=== PATIENT | female | born 1930 | race Caucasian/White ===

== ENCOUNTER 2017-09-01 14:34 | Emergency (ER) | payer MEDICARE, OTHER ==
[2017-09-01] MEDS ORDERED: NS 0.9% 1000 ML* 500 ML IV ONE (14:53)
--- NOTE | 2017-09-01 15:15 | RAD ---
INDICATION: Short of breath COMPARISON: Chest x-ray June 23, 2016 TECHNIQUE: An AP portable view obtained at 1504 hours is submitted. FINDINGS: Bones/Soft Tissues: There are no acute bony findings. There breast implants which demonstrate capsular calcifications Cardiomediastinal: The heart is normal in size. There is postsurgical change in the right hemothorax with surgical clips and sutures. The contours are unchanged. Lungs: Hyperinflation. No acute infiltrates. Pleura: Chronic blunting right costophrenic angle. Left costophrenic angle clear. Other: None IMPRESSION: CHRONIC LUNG FINDINGS WITH POSTOPERATIVE CHANGES. NO ACUTE CHANGE
[2017-09-01 16:21] LABS: Hematocrit 41 % (35-47); Hemoglobin 13.6 g/dl (12.0-16.0); Mean Corpuscular HGB Conc 33 g/dl (31-36); Mean Corpuscular Hemoglobin 31 pg (27-31); Mean Corpuscular Volume 94 fL (80-97); Mean Platelet Volume 10 um3 (7.4-10.4); Platelet Count 212 10^3/ul (150-450); Red Blood Count 4.41 10^6/ul (4.0-5.4); Red Cell Distribution Width 15 % (10.5-15); White Blood Count 8.7 10^3/ul (3.5-10.8)
[2017-09-01 16:27] LABS: ABS Basophils 0 10^3/ul (0-0.2); ABS Eosinophils 0 10^3/ul (0-0.6); ABS Lymphocytes 1.3 10^3/ul (1.0-4.8); ABS Monocytes 0.7 10^3/ul (0-0.8); ABS Neutrophils 6.5 10^3/ul (1.5-7.7); ABS Nucleated RBC 0 10^3/ul; Eosinophil % 0.5 % (0-6); Lymphocyte % 15.1 % (25-47); Nucleated Red Blood Cells % 0
[2017-09-01 16:35] LABS: EGFR Non-African American 81.1 (>60)
[2017-09-01] MEDS ORDERED: methylPREDNISolone 125 MG* 2 ML VIAL IM ONE (17:03)
[2017-09-01] MEDS ORDERED: Albuterol/Ipratropium NEB.SOL* Albuterol 2.5 MG/Ipratropium 0.5 MG 3 ML INH SCH (17:10)
[2017-09-01 18:01] LABS: Urine Appearance Clear; Urine Blood Negative (Negative); Urine Color Yellow; Urine Ketones Trace (Negative); Urine Protein Negative (Negative); Urine Specific Gravity 1.012 (1.010-1.030); Urine Urobilinogen Negative (Negative)
[2017-09-01 18:49] VITALS: BP 124/65
--- NOTE | 2017-09-02 11:56 | ED ---
Ulysses Demarco Thomas, scribed for Otf Bunch MD on 09/01/17 at 1502 . Shortness of Breath - HPI Summary HPI Summary: The patient is an 86 year old female complaining of shortness of breath and a productive cough. She additionally complains of a sore throat and runny nose. Past medical history includes COPD. She is on 2.5 L of oxygen at home. - History of Current Complaint Chief Complaint: EDShortnessOfBreath Time Seen by Provider: 09/01/17 14:47 Hx Obtained From: Patient Onset/Duration: Still Present Timing: Constant Current Severity: Mild Dyspnea At: Rest Aggrevating Factors: Nothing Alleviating Factors: Nothing Associated Signs & Symptoms: Cough (Productive), Nasal Congestion - Allergy/Home Medications Allergies/Adverse Reactions: Allergies Allergy/AdvReac Type Severity Reaction Status Date / Time MS Codeine [Codeine] Allergy Unknown Verified 04/24/16 01:38 Reaction Details MS Hydralazine [Hydralazine] Allergy Difficulty Verified 04/25/16 22:02 Breathing MS Sulfa Antibiotics Allergy Unknown Verified 04/24/16 01:38 [Sulfa Antibiotics] Reaction Details Home Medications: Home Medications Albuterol HFA INHALER* [Ventolin HFA Inhaler*] 2 puff INH Q4H PRN 09/01/17 [ History Confirmed 09/01/17] Albuterol Sulfate 1.25 mg INH TID 09/01/17 [History Confirmed 09/01/17] Magnesium Oxide TAB* [MagOx 400 TAB*] 400 mg PO DAILY 09/01/17 [History Confirmed 09/01/17] Metoprolol Succinate XL TAB* [Toprol XL TAB*] 25 mg PO DAILY 09/01/17 [History Confirmed 09/01/17] amLODIPine TAB* [Norvasc 5 mg TAB*] 2.5 mg PO DAILY 09/01/17 [History Confirmed 09/01/17] PMH/Surg Hx/FS Hx/Imm Hx Cardiovascular History: Reports: Hx Hypertension - untreated Respiratory History: Reports: Hx Chronic Obstructive Pulmonary Disease (COPD), Other Respiratory Problems/Disorders - HX OF LUNG CA 1988 GI History: Reports: Other GI Disorders - colon CA Musculoskeletal History: Reports: Hx Arthritis Sensory History: Reports: Hx Contacts or Glasses Opthamlomology History: Reports: Hx Contacts or Glasses Psychiatric History: Reports: Hx Anxiety - Cancer History Cancer Type, 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, Lung, melanoma, basil carcoma - Surgical History Surgery Procedure, Year, and Place: upper L lung lobectomy, colectomy, breast implants, breathing tube placement and removal Infectious Disease History: No Infectious Disease History: Denies: Traveled Outside the [place] in Last 30 Days - Family History Known Family History: Positive: Other - GERD - Social History Alcohol Use: Weekly Hx Substance Use: No Substance Use Type: Reports: None Hx Tobacco Use: Yes Smoking Status (MU): Former Smoker Length of Time of Smoking/Using Tobacco: 25+ years Review of Systems Positive: Sore Throat, Nasal Discharge Positive: Shortness Of Breath, Cough All Other Systems Reviewed And Are Negative: Yes Physical Exam - Summary Physical Exam Summary: VITAL SIGNS: Reviewed. GENERAL: Patient is an elderly, cachectic-looking female who is lying comfortable in the stretcher. Patient is not in any acute respiratory distress. HEAD AND FACE: No signs of trauma. No ecchymosis, hematomas or skull depressions. No sinus tenderness. EYES: PERRLA, EOMI x 2, No injected conjunctiva, no nystagmus. EARS: Hearing grossly intact. Ear canals and tympanic membranes are within normal limits. MOUTH: Oropharynx within normal limits. NECK: Supple, trachea is midline, no adenopathy, no JVD, no carotid bruit, no c- spine tenderness, neck with full ROM. CHEST: Symmetric, no tenderness at palpation LUNGS: Bilateral wheezing. CVS: Regular rate and rhythm, S1 and S2 present, no murmurs or gallops appreciated. ABDOMEN: Soft, non-tender. No signs of distention. No rebound no guarding, and no masses palpated. Bowel sounds are normal. EXTREMITIES: FROM in all major joints, no edema, no cyanosis or clubbing. NEURO: Alert and oriented x 3. No acute neurological deficits. Speech is normal and follows commands. SKIN: Dry and warm Triage Information Reviewed: Yes Vital Signs On Initial Exam: Initial Vitals Temp Pulse Resp BP Pulse Ox 99.8 F 80 16 156/89 94 09/01/17 14:45 09/01/17 14:45 09/01/17 14:45 09/01/17 14:45 09/01/17 14:45 Vital Signs Reviewed: Yes Diagnostics - Vital Signs Vital Signs Temp Pulse Resp BP Pulse Ox 09/01/17 14:45 99.8 F 80 16 156/89 94 - Laboratory Result Diagrams: 09/01/17 15:45 09/01/17 15:45 Lab Statement: Any lab studies that have been ordered have been reviewed, and results considered in the medical decision making process. - Radiology CXR Xray Interpretation: No Acute Changes - CHRONIC LUNG FINDINGS WITH POSTOPERATIVE CHANGES. NO ACUTE CHANGE. Dr. Bunch has reviewed this report. Radiology Interpretation Completed By: Radiologist - EKG 15:05 Cardiac Rate: NL EKG Rhythm: Sinus Rhythm - at 75 BPM EKG Interpretation: No ST elevations. Course/Dx - Course Assessment/Plan: The patient is an 86 year old female complaining of shortness of breath and a productive cough. She additionally complains of a sore throat and runny nose. Past medical history includes COPD. She is on 2.5 L of oxygen at home. Tests results are without significant abnormalities. Influenza A and B are negative. CXR shows CHRONIC LUNG FINDINGS WITH POSTOPERATIVE CHANGES. NO ACUTE CHANGE. In the ED course, the patient was given Duo-Neb. Her symptoms have improved. Therefore, the patient will be discharged home with her granddaughter. - Diagnoses Provider Diagnoses: COPD exacerbation Discharge - Discharge Plan Condition: Stable Disposition: HOME Patient Education Materials: COPD (Chronic Obstructive Pulmonary Disease) (ED) Referrals: Elmo Mendez MD [Primary Care Provider] - 3 Days Additional Instructions: Follow up with your primary care physician in three days. Return to the emergency department for any new or worsening symptoms. The documentation as recorded by the Ulysses luciano Thomas accurately reflects the service I personally performed and the decisions made by Julio C iverson Walter, MD.
== END 2017-09-01 18:48 | disposition home or self-care (01) ==
LOC: ED 14:34
DX: J44.1 Chronic obstructive pulmonary disease with (acute) exacerbation (principal); R05 Cough; J02.9 Acute pharyngitis, unspecified; R09.89 Other specified symptoms and signs involving the circulatory and respiratory systems; I10 Essential (primary) hypertension; Z85.118 Personal history of other malignant neoplasm of bronchus and lung; Z85.038 Personal history of other malignant neoplasm of large intestine; Z85.828 Personal history of other malignant neoplasm of skin; F41.9 Anxiety disorder, unspecified; Z88.5 Allergy status to narcotic agent; Z88.2 Allergy status to sulfonamides; Z87.891 Personal history of nicotine dependence
CPT/HCPCS: 36415; 71045; 80053; 81003; 82550; 82553; 83605; 83880; 84484; 85025; 86140; 87040; 87502; 93005; 94640; 96372; 99283; A9270-GY

== ENCOUNTER 2017-09-11 17:46 | Inpatient (IN) | payer MEDICARE, OTHER ==
[2017-09-11] MEDS ORDERED: Albuterol 2.5 MG/3 ML NEB.SOL* (0.083%) INH PRN ×2 (18:16→22:47)
[2017-09-11] MEDS ORDERED: NS 0.9% 1000 ML*IV.FLUID IV ONE (18:16)
[2017-09-11] MEDS ORDERED: Ondansetron INJ* 2 MG/ML VIAL IV ONE (18:16)
[2017-09-11] MEDS ORDERED: cefTRIAXone(*) 1 GM in NS 0.9% 50 ML* 50 ML IVPB ONE (18:16)
[2017-09-11] MEDS ORDERED: Azithromycin IV(*) 500 MG in NS 0.9% 250 ML* 250 ML IVPB ONE (18:16)
[2017-09-11] MEDS ORDERED: Acetaminophen TAB* 325 MG PO ONE (18:20)
[2017-09-11] MEDS ORDERED: Ondansetron ODT TAB* 4 MG ONE (18:50)
[2017-09-11] MEDS ORDERED: methylPREDNISolone 125 MG* 2 ML VIAL ONE (18:50)
[2017-09-11] MEDS ORDERED: Ondansetron ODT TAB* 4 MG PO ONE (18:51)
[2017-09-11] MEDS ORDERED: methylPREDNISolone 125 MG* 2 ML VIAL IV ONE (18:51)
--- NOTE | 2017-09-11 18:52 | RAD ---
Indication: Fever, shortness of breath. History of lung cancer in 1988. Comparison: September 01, 2017 chest radiograph and June 23, 2016 CT. Technique: Upright AP 1829 hours Report: Postsurgical change of RIGHT upper lobectomy with associated RIGHT hemithorax volume loss and rightward mediastinal shift. Unchanged associated mild peripheral elevation of the RIGHT hemidiaphragm compared with the LEFT. Mild prominence of the interstitial markings and mid to upper lung zone rarefaction consistent with obstructive lung disease and emphysema. No alveolar consolidation, focal pulmonary lesion, pleural effusion, or pneumothorax. Negative for cardiomegaly. Unremarkable postsurgical mediastinal contours and central pulmonary vasculature. IMPRESSION: Stigmata of RIGHT upper lobe lobectomy and advanced chronic obstructive pulmonary disease and emphysema. No acute cardiopulmonary process evident.
[2017-09-11 18:57] LABS: Hematocrit 39 % (35-47); Mean Corpuscular HGB Conc 33 g/dl (31-36); Mean Corpuscular Hemoglobin 31 pg (27-31); Mean Corpuscular Volume 92 fL (80-97); Mean Platelet Volume 9 um3 (7.4-10.4); Platelet Count 267 10^3/ul (150-450); Red Blood Count 4.24 10^6/ul (4.0-5.4); Red Cell Distribution Width 15 % (10.5-15); White Blood Count 13.6 10^3/ul (3.5-10.8)
[2017-09-11 18:58] LABS: ABS Basophils 0 10^3/ul (0-0.2); ABS Eosinophils 0 10^3/ul (0-0.6); ABS Lymphocytes 0.5 10^3/ul (1.0-4.8); ABS Monocytes 1.6 10^3/ul (0-0.8); ABS Neutrophils 11.5 10^3/ul (1.5-7.7); ABS Nucleated RBC 0 10^3/ul; Eosinophil % 0 % (0-6); Lymphocyte % 3.6 % (25-47); Nucleated Red Blood Cells % 0
[2017-09-11 19:06] LABS: INR 1.02 (0.77-1.02)
[2017-09-11 19:20] LABS: EGFR Non-African American 85.3 (>60)
[2017-09-11] MEDS ORDERED: CMCS: Melatonin (NF) 3 MG TAB PO PRN (22:47)
[2017-09-11] MEDS ORDERED: Morphine INJ* 2 MG/ML 1 ML CARPUJECT IV PRN (22:48)
[2017-09-11] MEDS ORDERED: Ondansetron INJ* 2 MG/ML VIAL IV PRN (22:48)
[2017-09-12 00:53] LABS: Urine Appearance Cloudy; Urine Blood 2+ (Negative); Urine Color Yellow; Urine Ketones 1+ (Negative); Urine Protein 2+(100 mg/dL) (Negative); Urine Specific Gravity 1.018 (1.010-1.030); Urine Urobilinogen Negative (Negative)
[2017-09-12] MEDS: NS 0.9% 1000 ML* 1,000 ML IV SCH ×2 (00:56→22:10)
--- NOTE | 2017-09-12 01:01 | HP ---
H&P (Free Text) History and Physical: PCP: Parish Mendez MD Date/Time: 09/11/2017 2230 CC: SOB HPI: Mrs Tucker is an 86YO female HX COPD on 2.5L NC oxygen nightly & PRN, lung CA s/p RU lobectomy, rectocolon CA s/p colectomy who presents with 3 days of worsening SOB which was somewhat alleviated by albuterol. However, it kept recurring and today became associated with generalized fatigue causing her to present for evaluation. She also noted a fever of 101.9F along with nausea and 3 episodes of watery diarrhea today without subjective F/C, sweats, emesis, black or bloody content to the diarrhea, abdominal pain, chest pain, or other issues. She had not had any ABX recently and has had no known sick contacts. PMedHx COPD 2.5L NC oxygen nightly and PRN lung CA s/p RU lobectomy colorectal CA s/p colectomy HTN Ambulatory Orders Nursing to reconcile. ALPRAZolam TAB* [Xanax TAB*] 0.5 mg PO BID 09/08/15 Budesonide/Formote 160/4.5(NF) [Symbicort 160/4.5 (NF)] 2 puff INH BID 09/08/15 Albuterol 2.5MG/3ML (0.083%)* [Ventolin 2.5 MG/3 ML NEB.FARHAD*] 2.5 mg INH TID PRN 06/11/16 Albuterol HFA INHALER* [Ventolin HFA Inhaler*] 2 puff INH Q4H PRN 09/01/17 Albuterol Sulfate 1.25 mg INH TID 09/01/17 Magnesium Oxide TAB* [MagOx 400 TAB*] 400 mg PO DAILY 09/01/17 Metoprolol Succinate XL TAB* [Toprol XL TAB*] 25 mg PO DAILY 09/01/17 amLODIPine TAB* [Norvasc 5 mg TAB*] 2.5 mg PO DAILY 09/01/17 Allergies codeine Allergy (Verified 09/11/17 17:51) Unknown Reaction Details hydralazine Allergy (Verified 09/11/17 17:51) Difficulty Breathing Sulfa (Sulfonamide Antibiotics) Allergy (Verified 09/11/17 17:51) Unknown Reaction Details PSurgHx RU lobectomy for lung CA colectomy for rectocolon CA hysterectomy melanoma excision SocHx: quit smoking ~50 years ago, no alcohol or recreational drugs; , lives alone, 1 child in [place]; 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 Father passed at 88 2nd CAD/AK. ROS: as above, otherwise reviewed and all were negative vitals: Vital Signs Temp 36.4 C 09/11/17 23:06 Pulse 91 09/11/17 23:06 Resp 16 09/11/17 23:06 BP 108/60 09/11/17 23:06 Pulse Ox 98 09/11/17 23:06 Intake & Output 09/11/17 09/11/17 09/12/17 11:59 23:59 11:59 Intake Total 1730 Balance 1730 Weight 47.627 kg Intake: IV Fluids 1730 Constitutional: NAD, normally developed, thin elderly white female HEENM: atraumatic; sclera/conjunctiva: anicteric/clear; hearing: clinically mildly decreased; oropharynx: clear, mucosa moist Neck: soft tissue: non-tender; thyroid: normal Pulmonary: diminished but clear B, poor aeration, no accessory muscle use CV: RR/RR, normal S1S2, no carotid bruit, no jugular venous distention, 2+ B DP/ PT, no edema Abdominal: soft, non-distended, non-tender, no rebound/guarding/rigidity, normoactive bowel sounds, no hepatosplenomegaly or masses, no costovertebral angle tenderness Musculoskeletal: general: grossly intact, no tenderness w/ palpation Integumental: normal appearance and texture of exposed skin Psychiatric orientation: AA&O to PPS affect: calm mood: cooperative eye contact: fair to good content: reliable responses: timely insight: fair to good Testing: Lab Results 09/11/17 09/11/17 09/11/17 Range/Units 17:40 17:40 17:40 WBC 13.6 H (3.5-10.8) 10^3/ul RBC 4.24 (4.0-5.4) 10^6/ul Hgb 13.0 (12.0-16.0) g/dl Hct 39 (35-47) % MCV 92 (80-97) fL MCH 31 (27-31) pg MCHC 33 (31-36) g/dl RDW 15 (10.5-15) % Plt Count 267 (150-450) 10^3/ul MPV 9 (7.4-10.4) um3 Neut % (Auto) 84.4 H (38-83) % Lymph % (Auto) 3.6 L (25-47) % Sullivan % (Auto) 11.8 H (0-7) % Eos % (Auto) 0 (0-6) % Baso % (Auto) 0.2 (0-2) % Absolute Neuts (auto) 11.5 H (1.5-7.7) 10^3/ul Absolute Lymphs (auto) 0.5 L (1.0-4.8) 10^3/ul Absolute Monos (auto) 1.6 H (0-0.8) 10^3/ul Absolute Eos (auto) 0 (0-0.6) 10^3/ul Absolute Basos (auto) 0 (0-0.2) 10^3/ul Absolute Nucleated RBC 0 10^3/ul Nucleated RBC % 0 ESR 67 H (0-40) mm/Hr INR (Anticoag Therapy) 1.02 (0.77-1.02) APTT 31.9 (26.0-36.3) seconds ABG pH (7.35-7.45) ABG pCO2 (35-45) mmHg ABG pO2 (80-100) mmHg ABG HCO3 (19-31) mmol/L ABG O2 Saturation (95-98) % ABG Base Excess (-2.0-2.0) Sodium 130 L (133-145) mmol/L Potassium 3.9 (3.5-5.0) mmol/L Chloride 93 L (101-111) mmol/L Carbon Dioxide 29 (22-32) mmol/L Anion Gap 8 (2-11) mmol/L BUN 24 (6-24) mg/dL Creatinine 0.66 (0.51-0.95) mg/dL Est GFR ( Amer) 109.7 (>60) Est GFR (Non-Af Amer) 85.3 (>60) BUN/Creatinine Ratio 36.4 H (8-20) Glucose 126 H (70-100) mg/dL Lactic Acid (0.5-2.0) mmol/L Calcium 9.4 (8.6-10.3) mg/dL Total Bilirubin 0.50 (0.2-1.0) mg/dL AST 21 (13-39) U/L ALT 8 (7-52) U/L Alkaline Phosphatase 63 (34-104) U/L Total Creatine Kinase 173 (10-223) U/L Troponin I 0.03 (<0.04) ng/mL C-Reactive Protein 209.28 H (< 5.00) mg/L B-Natriuretic Peptide ( - 100) pg/mL Total Protein 7.8 (6.4-8.9) g/dL Albumin 3.8 (3.2-5.2) g/dL Globulin 4.0 (2-4) g/dL Albumin/Globulin Ratio 1.0 (1-3) Procalcitonin (<0.6) ng/mL Urine Color Urine Appearance Urine pH (5-9) Ur Specific [place] (1.010-1.030) Urine Protein (Negative) Urine Ketones (Negative) Urine Blood (Negative) Urine Nitrate (Negative) Urine Bilirubin (Negative) Urine Urobilinogen (Negative) Ur Leukocyte Esterase (Negative) Urine WBC (Auto) (Absent) Urine RBC (Auto) (Absent) Ur Squamous Epith Cells (Absent) Ur Renal Epithelial Cell (Absent) Urine Bacteria (Absent) Urine Glucose (Negative) Influenza A (Rapid) (Negative) Influenza B (Rapid) (Negative) 09/11/17 09/11/17 09/11/17 Range/Units 17:40 17:40 17:40 WBC (3.5-10.8) 10^3/ul RBC (4.0-5.4) 10^6/ul Hgb (12.0-16.0) g/dl Hct (35-47) % MCV (80-97) fL MCH (27-31) pg MCHC (31-36) g/dl RDW (10.5-15) % Plt Count (150-450) 10^3/ul MPV (7.4-10.4) um3 Neut % (Auto) (38-83) % Lymph % (Auto) (25-47) % Sullivan % (Auto) (0-7) % Eos % (Auto) (0-6) % Baso % (Auto) (0-2) % Absolute Neuts (auto) (1.5-7.7) 10^3/ul Absolute Lymphs (auto) (1.0-4.8) 10^3/ul Absolute Monos (auto) (0-0.8) 10^3/ul Absolute Eos (auto) (0-0.6) 10^3/ul Absolute Basos (auto) (0-0.2) 10^3/ul Absolute Nucleated RBC 10^3/ul Nucleated RBC % ESR (0-40) mm/Hr INR (Anticoag Therapy) (0.77-1.02) APTT (26.0-36.3) seconds ABG pH (7.35-7.45) ABG pCO2 (35-45) mmHg ABG pO2 (80-100) mmHg ABG HCO3 (19-31) mmol/L ABG O2 Saturation (95-98) % ABG Base Excess (-2.0-2.0) Sodium (133-145) mmol/L Potassium (3.5-5.0) mmol/L Chloride (101-111) mmol/L Carbon Dioxide (22-32) mmol/L Anion Gap (2-11) mmol/L BUN (6-24) mg/dL Creatinine (0.51-0.95) mg/dL Est GFR ( Amer) (>60) Est GFR (Non-Af Amer) (>60) BUN/Creatinine Ratio (8-20) Glucose (70-100) mg/dL Lactic Acid 1.2 (0.5-2.0) mmol/L Calcium (8.6-10.3) mg/dL Total Bilirubin (0.2-1.0) mg/dL AST (13-39) U/L ALT (7-52) U/L Alkaline Phosphatase (34-104) U/L Total Creatine Kinase (10-223) U/L Troponin I (<0.04) ng/mL C-Reactive Protein (< 5.00) mg/L B-Natriuretic Peptide 245 H ( - 100) pg/mL Total Protein (6.4-8.9) g/dL Albumin (3.2-5.2) g/dL Globulin (2-4) g/dL Albumin/Globulin Ratio (1-3) Procalcitonin 0.8 H (<0.6) ng/mL Urine Color Urine Appearance Urine pH (5-9) Ur Specific [place] (1.010-1.030) Urine Protein (Negative) Urine Ketones (Negative) Urine Blood (Negative) Urine Nitrate (Negative) Urine Bilirubin (Negative) Urine Urobilinogen (Negative) Ur Leukocyte Esterase (Negative) Urine WBC (Auto) (Absent) Urine RBC (Auto) (Absent) Ur Squamous Epith Cells (Absent) Ur Renal Epithelial Cell (Absent) Urine Bacteria (Absent) Urine Glucose (Negative) Influenza A (Rapid) (Negative) Influenza B (Rapid) (Negative) 09/11/17 09/11/17 09/11/17 Range/Units 18:40 18:50 22:10 WBC (3.5-10.8) 10^3/ul RBC (4.0-5.4) 10^6/ul Hgb (12.0-16.0) g/dl Hct (35-47) % MCV (80-97) fL MCH (27-31) pg MCHC (31-36) g/dl RDW (10.5-15) % Plt Count (150-450) 10^3/ul MPV (7.4-10.4) um3 Neut % (Auto) (38-83) % Lymph % (Auto) (25-47) % Sullivan % (Auto) (0-7) % Eos % (Auto) (0-6) % Baso % (Auto) (0-2) % Absolute Neuts (auto) (1.5-7.7) 10^3/ul Absolute Lymphs (auto) (1.0-4.8) 10^3/ul Absolute Monos (auto) (0-0.8) 10^3/ul Absolute Eos (auto) (0-0.6) 10^3/ul Absolute Basos (auto) (0-0.2) 10^3/ul Absolute Nucleated RBC 10^3/ul Nucleated RBC % ESR (0-40) mm/Hr INR (Anticoag Therapy) (0.77-1.02) APTT (26.0-36.3) seconds ABG pH 7.44 (7.35-7.45) ABG pCO2 41 (35-45) mmHg ABG pO2 131 H (80-100) mmHg ABG HCO3 27.5 (19-31) mmol/L ABG O2 Saturation 99.5 H (95-98) % ABG Base Excess 3.3 H (-2.0-2.0) Sodium (133-145) mmol/L Potassium (3.5-5.0) mmol/L Chloride (101-111) mmol/L Carbon Dioxide (22-32) mmol/L Anion Gap (2-11) mmol/L BUN (6-24) mg/dL Creatinine (0.51-0.95) mg/dL Est GFR ( Amer) (>60) Est GFR (Non-Af Amer) (>60) BUN/Creatinine Ratio (8-20) Glucose (70-100) mg/dL Lactic Acid 1.7 (0.5-2.0) mmol/L Calcium (8.6-10.3) mg/dL Total Bilirubin (0.2-1.0) mg/dL AST (13-39) U/L ALT (7-52) U/L Alkaline Phosphatase (34-104) U/L Total Creatine Kinase (10-223) U/L Troponin I (<0.04) ng/mL C-Reactive Protein (< 5.00) mg/L B-Natriuretic Peptide ( - 100) pg/mL Total Protein (6.4-8.9) g/dL Albumin (3.2-5.2) g/dL Globulin (2-4) g/dL Albumin/Globulin Ratio (1-3) Procalcitonin (<0.6) ng/mL Urine Color Urine Appearance Urine pH (5-9) Ur Specific [place] (1.010-1.030) Urine Protein (Negative) Urine Ketones (Negative) Urine Blood (Negative) Urine Nitrate (Negative) Urine Bilirubin (Negative) Urine Urobilinogen (Negative) Ur Leukocyte Esterase (Negative) Urine WBC (Auto) (Absent) Urine RBC (Auto) (Absent) Ur Squamous Epith Cells (Absent) Ur Renal Epithelial Cell (Absent) Urine Bacteria (Absent) Urine Glucose (Negative) Influenza A (Rapid) Negative (Negative) Influenza B (Rapid) Negative (Negative) 09/12/17 Range/Units 00:33 WBC (3.5-10.8) 10^3/ul RBC (4.0-5.4) 10^6/ul Hgb (12.0-16.0) g/dl Hct (35-47) % MCV (80-97) fL MCH (27-31) pg MCHC (31-36) g/dl RDW (10.5-15) % Plt Count (150-450) 10^3/ul MPV (7.4-10.4) um3 Neut % (Auto) (38-83) % Lymph % (Auto) (25-47) % Sullivan % (Auto) (0-7) % Eos % (Auto) (0-6) % Baso % (Auto) (0-2) % Absolute Neuts (auto) (1.5-7.7) 10^3/ul Absolute Lymphs (auto) (1.0-4.8) 10^3/ul Absolute Monos (auto) (0-0.8) 10^3/ul Absolute Eos (auto) (0-0.6) 10^3/ul Absolute Basos (auto) (0-0.2) 10^3/ul Absolute Nucleated RBC 10^3/ul Nucleated RBC % ESR (0-40) mm/Hr INR (Anticoag Therapy) (0.77-1.02) APTT (26.0-36.3) seconds ABG pH (7.35-7.45) ABG pCO2 (35-45) mmHg ABG pO2 (80-100) mmHg ABG HCO3 (19-31) mmol/L ABG O2 Saturation (95-98) % ABG Base Excess (-2.0-2.0) Sodium (133-145) mmol/L Potassium (3.5-5.0) mmol/L Chloride (101-111) mmol/L Carbon Dioxide (22-32) mmol/L Anion Gap (2-11) mmol/L BUN (6-24) mg/dL Creatinine (0.51-0.95) mg/dL Est GFR ( Amer) (>60) Est GFR (Non-Af Amer) (>60) BUN/Creatinine Ratio (8-20) Glucose (70-100) mg/dL Lactic Acid (0.5-2.0) mmol/L Calcium (8.6-10.3) mg/dL Total Bilirubin (0.2-1.0) mg/dL AST (13-39) U/L ALT (7-52) U/L Alkaline Phosphatase (34-104) U/L Total Creatine Kinase (10-223) U/L Troponin I (<0.04) ng/mL C-Reactive Protein (< 5.00) mg/L B-Natriuretic Peptide ( - 100) pg/mL Total Protein (6.4-8.9) g/dL Albumin (3.2-5.2) g/dL Globulin (2-4) g/dL Albumin/Globulin Ratio (1-3) Procalcitonin (<0.6) ng/mL Urine Color Yellow Urine Appearance Cloudy Urine pH 5.0 (5-9) Ur Specific [place] 1.018 (1.010-1.030) Urine Protein 2+(100 mg/dl) A (Negative) Urine Ketones 1+ A (Negative) Urine Blood 2+ A (Negative) Urine Nitrate Negative (Negative) Urine Bilirubin Negative (Negative) Urine Urobilinogen Negative (Negative) Ur Leukocyte Esterase 3+ A (Negative) Urine WBC (Auto) 3+(>20/hpf) A (Absent) Urine RBC (Auto) 3+(>10/hpf) A (Absent) Ur Squamous Epith Cells Present A (Absent) Ur Renal Epithelial Cell Present A (Absent) Urine Bacteria Absent (Absent) Urine Glucose Negative (Negative) Influenza A (Rapid) (Negative) Influenza B (Rapid) (Negative) ECG, personally reviewed: sinus tachycardia rate 119, no ischemia CXR, personally reviewed: IMPRESSION: Stigmata of RIGHT upper lobe lobectomy and advanced chronic obstructive pulmonary disease and emphysema. No acute cardiopulmonary process evident. Impression: 86F HX COPD/emphysema presenting with 3 days progressive SOB felt to be in COPD exacerbation DIAGNOSIS & PLAN Primary SIRS 2nd COPD exacerbation with mildly elevated procalcitonin : given azithromycin & ceftriaxone IV in ED, will continue azithromycin PO : IVFs cautiously give elevated BNP : albuterol nebs : mometasone/formoterol : tiotropium : IV methylprednisolone : incentive spirometry : supplemental oxygen : supportive care Secondary lung CA s/p RU lobectomy : no acute issues colorectal CA s/p colectomy : no acute issues HTN : continue metoprolol & amlodipine anxiety : continue alprazolam Admission Rational: inpatient for COPD exacerbation in patient at high risk of morbidity/mortality; inappropriate for outpatient setting DVTp: SCDs & heparin SQ Code Status: DNR/I; MOLST filled out HCP: daughter, Vladimir Shepherd
[2017-09-12] MEDS: Albuterol 2.5 MG/3 ML NEB.SOL* (0.083%) INH SCH ×4 (01:08→19:46)
--- NOTE | 2017-09-12 02:47 | ED ---
Yeni Demarco Jason, scribed for Sarah Marquis MD on 09/11/17 at 1831 . HPI Febrile Illness - HPI Summary HPI Summary: This patient is an 86 year old F presenting to [facility] accompanied by her friend Kya who acts as her aide, with a chief complaint of fever for 3 days. The patients aide states that patient began experiencing Bad diarrhea, nausea, loss of appetite, and a fever for 3 days. Prior to arrival, the patients temp was 101.9. The Aide states the patient has 2.5 Liters of continuous oxygen at home, she took Tylenol was at 1200, and she has received her flu vaccine. Dr. Mendez is her PCP. During Dr. Duenas visit, the patients temperature was measured to be 101.4. Symptoms aggravated by nothing. Symptoms alleviated by nothing. Patient reports nausea, loss of appetite, fever, SOB, diarrhea. The patient uses a home nebulizer in addition to home O2, however, she did not use the nebulizer today. - History of Current Complaint Chief Complaint: EDFever Time Seen by Provider: 09/11/17 18:10 Hx Obtained From: Patient, Family/[employer] Craftsman - friend who acts as aide Onset/Duration: Started Days Ago - 3 days ago, Still Present Timing: Constant Temperature: 101.9 F Initial Severity: Moderate Current Severity: Moderate Pain Intensity: 10 Pain Scale Used: 0-10 Numeric Aggravating Factors: Nothing Alleviating Factors: Nothing Associated Signs and Symptoms: Cough, Diarrhea, Nausea, SOB - Additional Pertinent History Primary Care Physician: [id number] - Allergy/Home Medications Allergies/Adverse Reactions: Allergies Allergy/AdvReac Type Severity Reaction Status Date / Time codeine Allergy Unknown Verified 09/11/17 17:51 Reaction Details hydralazine Allergy Difficulty Verified 09/11/17 17:51 Breathing Sulfa (Sulfonamide Allergy Unknown Verified 09/11/17 17:51 Antibiotics) Reaction Details PMH/Surg Hx/FS Hx/Imm Hx Previously Healthy: No Cardiovascular History: Reports: Hx Hypertension Respiratory History: Reports: Hx Chronic Obstructive Pulmonary Disease (COPD), Other Respiratory Problems/Disorders - HX OF LUNG CA 1988 GI History: Reports: Other GI Disorders - colon CA Musculoskeletal History: Reports: Hx Arthritis Sensory History: Reports: Hx Contacts or Glasses Opthamlomology History: Reports: Hx Contacts or Glasses Psychiatric History: Reports: Hx Anxiety - Cancer History Cancer Type, 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 CA, Lung CA, melanoma, basal cell carcinoma - Surgical History Surgery Procedure, Year, and Place: upper L lung lobectomy, colectomy, breast implants Infectious Disease History: No Infectious Disease History: Denies: Traveled Outside the [place] in Last 30 Days - Family History Known Family History: Positive: Other - GERD - Social History Alcohol Use: Weekly Hx Substance Use: No Substance Use Type: Reports: None Hx Tobacco Use: Yes Smoking Status (MU): Former Smoker Length of Time of Smoking/Using Tobacco: 25+ years Review of Systems Positive: Fever Cardiovascular: Negative Positive: Shortness Of Breath Positive: Diarrhea, Nausea, Other - loss of appetite Skin: Negative Neurological: Negative Psychological: Normal All Other Systems Reviewed And Are Negative: Yes Physical Exam - Summary Physical Exam Summary: Appearance: Ill-appearing, moderate pain distress, thin female in mild resp distress Skin: Warm, color reflects adequate perfusion Head: Normal Head/Face inspection Eyes: Conjunctiva clear ENT: Normal inspection Neck: Supple, no nodes, no JVD. Respiratory: Lungs clear, decreased breath sounds, mild respiratory distress Cardio: RRR, No murmur, pulses normal, brisk capillary refill Abdomen: soft, nontender, no masses Bowel sounds: present Musculoskeletal: Strength Intact/ ROM intact. No calf tenderness. No edema. Psychological: Normal Neuro: alert, moves all extrem, no focal deficit, facial symmetry Triage Information Reviewed: Yes Vital Signs On Initial Exam: Initial Vitals Temp Pulse Resp BP Pulse Ox 99.1 F 125 21 144/88 93 09/11/17 17:51 09/11/17 17:51 09/11/17 17:51 09/11/17 17:51 09/11/17 17:51 Vital Signs Reviewed: Yes Diagnostics - Vital Signs Vital Signs Temp Pulse Resp BP Pulse Ox 09/11/17 17:51 99.1 F 125 21 144/88 93 - Laboratory Lab Results: Lab Results 09/11/17 09/11/17 09/11/17 Range/Units 17:40 17:40 17:40 WBC 13.6 H (3.5-10.8) 10^3/ul RBC 4.24 (4.0-5.4) 10^6/ul Hgb 13.0 (12.0-16.0) g/dl Hct 39 (35-47) % MCV 92 (80-97) fL MCH 31 (27-31) pg MCHC 33 (31-36) g/dl RDW 15 (10.5-15) % Plt Count 267 (150-450) 10^3/ul MPV 9 (7.4-10.4) um3 Neut % (Auto) 84.4 H (38-83) % Lymph % (Auto) 3.6 L (25-47) % [place] % (Auto) 11.8 H (0-7) % Eos % (Auto) 0 (0-6) % Baso % (Auto) 0.2 (0-2) % Absolute Neuts (auto) 11.5 H (1.5-7.7) 10^3/ul Absolute Lymphs (auto) 0.5 L (1.0-4.8) 10^3/ul Absolute Monos (auto) 1.6 H (0-0.8) 10^3/ul Absolute Eos (auto) 0 (0-0.6) 10^3/ul Absolute Basos (auto) 0 (0-0.2) 10^3/ul Absolute Nucleated RBC 0 10^3/ul Nucleated RBC % 0 ESR 67 H (0-40) mm/Hr INR (Anticoag Therapy) 1.02 (0.77-1.02) APTT 31.9 (26.0-36.3) seconds ABG pH (7.35-7.45) ABG pCO2 (35-45) mmHg ABG pO2 (80-100) mmHg ABG HCO3 (19-31) mmol/L ABG O2 Saturation (95-98) % ABG Base Excess (-2.0-2.0) Sodium 130 L (133-145) mmol/L Potassium 3.9 (3.5-5.0) mmol/L Chloride 93 L (101-111) mmol/L Carbon Dioxide 29 (22-32) mmol/L Anion Gap 8 (2-11) mmol/L BUN 24 (6-24) mg/dL Creatinine 0.66 (0.51-0.95) mg/dL Est GFR ( Amer) 109.7 (>60) Est GFR (Non-Af Amer) 85.3 (>60) BUN/Creatinine Ratio 36.4 H (8-20) Glucose 126 H (70-100) mg/dL Lactic Acid (0.5-2.0) mmol/L Calcium 9.4 (8.6-10.3) mg/dL Total Bilirubin 0.50 (0.2-1.0) mg/dL AST 21 (13-39) U/L ALT 8 (7-52) U/L Alkaline Phosphatase 63 (34-104) U/L Total Creatine Kinase 173 (10-223) U/L Troponin I 0.03 (<0.04) ng/mL C-Reactive Protein 209.28 H (< 5.00) mg/L B-Natriuretic Peptide ( - 100) pg/mL Total Protein 7.8 (6.4-8.9) g/dL Albumin 3.8 (3.2-5.2) g/dL Globulin 4.0 (2-4) g/dL Albumin/Globulin Ratio 1.0 (1-3) Procalcitonin (<0.6) ng/mL Influenza A (Rapid) (Negative) Influenza B (Rapid) (Negative) 09/11/17 09/11/17 09/11/17 Range/Units 17:40 17:40 17:40 WBC (3.5-10.8) 10^3/ul RBC (4.0-5.4) 10^6/ul Hgb (12.0-16.0) g/dl Hct (35-47) % MCV (80-97) fL MCH (27-31) pg MCHC (31-36) g/dl RDW (10.5-15) % Plt Count (150-450) 10^3/ul MPV (7.4-10.4) um3 Neut % (Auto) (38-83) % Lymph % (Auto) (25-47) % [place] % (Auto) (0-7) % Eos % (Auto) (0-6) % Baso % (Auto) (0-2) % Absolute Neuts (auto) (1.5-7.7) 10^3/ul Absolute Lymphs (auto) (1.0-4.8) 10^3/ul Absolute Monos (auto) (0-0.8) 10^3/ul Absolute Eos (auto) (0-0.6) 10^3/ul Absolute Basos (auto) (0-0.2) 10^3/ul Absolute Nucleated RBC 10^3/ul Nucleated RBC % ESR (0-40) mm/Hr INR (Anticoag Therapy) (0.77-1.02) APTT (26.0-36.3) seconds ABG pH (7.35-7.45) ABG pCO2 (35-45) mmHg ABG pO2 (80-100) mmHg ABG HCO3 (19-31) mmol/L ABG O2 Saturation (95-98) % ABG Base Excess (-2.0-2.0) Sodium (133-145) mmol/L Potassium (3.5-5.0) mmol/L Chloride (101-111) mmol/L Carbon Dioxide (22-32) mmol/L Anion Gap (2-11) mmol/L BUN (6-24) mg/dL Creatinine (0.51-0.95) mg/dL Est GFR ( Amer) (>60) Est GFR (Non-Af Amer) (>60) BUN/Creatinine Ratio (8-20) Glucose (70-100) mg/dL Lactic Acid 1.2 (0.5-2.0) mmol/L Calcium (8.6-10.3) mg/dL Total Bilirubin (0.2-1.0) mg/dL AST (13-39) U/L ALT (7-52) U/L Alkaline Phosphatase (34-104) U/L Total Creatine Kinase (10-223) U/L Troponin I (<0.04) ng/mL C-Reactive Protein (< 5.00) mg/L B-Natriuretic Peptide 245 H ( - 100) pg/mL Total Protein (6.4-8.9) g/dL Albumin (3.2-5.2) g/dL Globulin (2-4) g/dL Albumin/Globulin Ratio (1-3) Procalcitonin 0.8 H (<0.6) ng/mL Influenza A (Rapid) (Negative) Influenza B (Rapid) (Negative) 09/11/17 09/11/17 09/11/17 Range/Units 18:40 18:50 22:10 WBC (3.5-10.8) 10^3/ul RBC (4.0-5.4) 10^6/ul Hgb (12.0-16.0) g/dl Hct (35-47) % MCV (80-97) fL MCH (27-31) pg MCHC (31-36) g/dl RDW (10.5-15) % Plt Count (150-450) 10^3/ul MPV (7.4-10.4) um3 Neut % (Auto) (38-83) % Lymph % (Auto) (25-47) % [place] % (Auto) (0-7) % Eos % (Auto) (0-6) % Baso % (Auto) (0-2) % Absolute Neuts (auto) (1.5-7.7) 10^3/ul Absolute Lymphs (auto) (1.0-4.8) 10^3/ul Absolute Monos (auto) (0-0.8) 10^3/ul Absolute Eos (auto) (0-0.6) 10^3/ul Absolute Basos (auto) (0-0.2) 10^3/ul Absolute Nucleated RBC 10^3/ul Nucleated RBC % ESR (0-40) mm/Hr INR (Anticoag Therapy) (0.77-1.02) APTT (26.0-36.3) seconds ABG pH 7.44 (7.35-7.45) ABG pCO2 41 (35-45) mmHg ABG pO2 131 H (80-100) mmHg ABG HCO3 27.5 (19-31) mmol/L ABG O2 Saturation 99.5 H (95-98) % ABG Base Excess 3.3 H (-2.0-2.0) Sodium (133-145) mmol/L Potassium (3.5-5.0) mmol/L Chloride (101-111) mmol/L Carbon Dioxide (22-32) mmol/L Anion Gap (2-11) mmol/L BUN (6-24) mg/dL Creatinine (0.51-0.95) mg/dL Est GFR ( Amer) (>60) Est GFR (Non-Af Amer) (>60) BUN/Creatinine Ratio (8-20) Glucose (70-100) mg/dL Lactic Acid 1.7 (0.5-2.0) mmol/L Calcium (8.6-10.3) mg/dL Total Bilirubin (0.2-1.0) mg/dL AST (13-39) U/L ALT (7-52) U/L Alkaline Phosphatase (34-104) U/L Total Creatine Kinase (10-223) U/L Troponin I (<0.04) ng/mL C-Reactive Protein (< 5.00) mg/L B-Natriuretic Peptide ( - 100) pg/mL Total Protein (6.4-8.9) g/dL Albumin (3.2-5.2) g/dL Globulin (2-4) g/dL Albumin/Globulin Ratio (1-3) Procalcitonin (<0.6) ng/mL Influenza A (Rapid) Negative (Negative) Influenza B (Rapid) Negative (Negative) Result Diagrams: 09/13/17 04:35 09/13/17 04:35 Lab Statement: Any lab studies that have been ordered have been reviewed, and results considered in the medical decision making process. - Radiology CXR Radiology Interpretation Completed By: Radiologist - CXR reveals, per radiologist, stigmata of RIGHT upper lobe lobectomy and advanced chronic obstructive pulmonary disease and emphysema. No acute cardiopulmonary process evident. - EKG 182 Cardiac Rate: Tachycardia EKG Rhythm: Sinus Tachycardia - [address] Segment: Non-Specific Ectopy: None EKG Interpretation: normal AVIVCT, normal QTc, normal axis. EKG Comparison: No Significant Change - compared to 09/01/17 there are no significant changes Re-Evaluation - Re-Evaluation First Eval Re-Evaluation Time: 21:30 Change: Unchanged Comment: pt remains SOB at rest, no diarrhea while in ED. agrees to adm Course/Dx - Course Course Of Treatment: In the ED course the patient was given IV Fluids via sepsis pathway and albuterol neb, solumedrol 12rmg IV and azithromycin and ceftriaxone for CAP/SIRS/COPD exacerbation. Rapid influenza A and B test results are negative. At 1823 Dr. Marquis discussed with respiratory therapy personnel about the delivery of oxygen. at [address] Rachel - Febrile Illness Differential Diagnoses: Bacteremia, GI Disease, Pneumonia, Sepsis - Diagnoses Provider Diagnoses: COPD exacerbation, SIRS (systemic inflammatory response syndrome), Tachycardia - Provider Notifications Discussed Care Of Patient With: Mukesh Rachel Time Discussed With Above Provider: 21:30 Instructed by Provider To: Admit As Inpatient - Critical Care Time Critical Care Time: 30-74 min - 30 minutes Discharge - Discharge Plan Condition: Stable Disposition: ADMITTED TO [facility] The documentation as recorded by the Yeni luciano Jason accurately reflects the service I personally performed and the decisions made by , Sarah Marquis MD.
[2017-09-12] MEDS: methylPREDNISolone SOD 40 MG* 1 ML VIAL IV SCH ×3 (05:40→20:38)
[2017-09-12] MEDS: Omeprazole CAP* 20 MG PO SCH (05:40)
[2017-09-12] MEDS: Heparin VIAL(*) 5000 UNITS/ML VIAL (FIVE THOUSAND) SUBCUT SCH ×3 (05:41→20:38)
[2017-09-12 06:56] LABS: ABS Basophils 0 10^3/ul (0-0.2); ABS Eosinophils 0 10^3/ul (0-0.6); ABS Lymphocytes 0.5 10^3/ul (1.0-4.8); ABS Monocytes 0.2 10^3/ul (0-0.8); ABS Neutrophils 9.6 10^3/ul (1.5-7.7); ABS Nucleated RBC 0 10^3/ul; Eosinophil % 0 % (0-6); Hematocrit 36 % (35-47); Hemoglobin 12.2 g/dl (12.0-16.0); Lymphocyte % 5.3 % (25-47); Mean Corpuscular HGB Conc 34 g/dl (31-36); Mean Corpuscular Hemoglobin 31 pg (27-31); Mean Corpuscular Volume 92 fL (80-97); Mean Platelet Volume 9 um3 (7.4-10.4); Nucleated Red Blood Cells % 0; Platelet Count 234 10^3/ul (150-450); Red Cell Distribution Width 15 % (10.5-15); White Blood Count 10.4 10^3/ul (3.5-10.8)
[2017-09-12 07:08] LABS: EGFR Non-African American 82.4 (>60)
[2017-09-12] MEDS: Tiotropium CAP.INH* CAP.INH/18 MCG (USE ORDER SET !) INH SCH (07:43)
[2017-09-12] MEDS: Mometasone/Formoter 200/5 MDI INH SCH ×2 (07:43→19:47)
--- NOTE | 2017-09-12 08:45 | PN ---
Subjective Date of Service: 09/12/17 Interval History: Patient seen and examined at bedside. Denies fever, chills, chest discomfort, V/ D. Pt reports that her shortness of breath is improving since admission. She reports feeling lousy today and "feels spent". She also reports lower ABD discomfort and dysuria since she had a catheter last week during an emergency room visit. She is also having nausea this AM. She also reports felling "loopy" this morning. Family History: Unchanged from Admission Social History: Unchanged from Admission Past Medical History: Unchanged from Admission Objective Active Medications: Acetaminophen (Tylenol Tab*) 650 mg PO Q6H PRN Reason: FEVER/PAIN Albuterol (Ventolin 2.5 Mg/3 Ml Neb.Lety*) 2.5 mg INH Q2H PRN Reason: SOB/ WHEEZING Albuterol (Ventolin 2.5 Mg/3 Ml Neb.Lety*) 2.5 mg INH [id number] AWAKE [facility] Alprazolam (Xanax Tab*) 0.5 mg PO BID [facility] Amlodipine Besylate (Norvasc Tab*) 2.5 mg PO DAILY [facility] Azithromycin (Zithromax Tab*) 500 mg PO DAILY [facility] Device (Tiotropium Inhaler Device*) 1 each INH 0900 ONE Stop: 09/12/17 09:01 Heparin Sodium (Porcine) (Heparin Vial(*)) 5,000 units SUBCUT Q8HR [facility] Sodium Chloride (Ns 0.9% 1000 Ml*) 1,000 mls @ 50 mls/hr IV PER RATE [facility] Magnesium Oxide (Magox 400 Tab*) 400 mg PO DAILY [facility] Melatonin (Melatonin (Nf)) 3 mg PO BEDTIME PRN; Protocol Reason: Sleep Methylprednisolone Sodium Succinate (Solu-Medrol 40 Mg) 40 mg IV Q8H [facility] Metoprolol Succinate (Toprol Xl Tab*) 25 mg PO DAILY [facility] Mometasone Furoate/Formoterol Fumar (Dulera 200/5 Mdi*) 2 puff INH BID [facility] Morphine Sulfate (Morphine Inj (Syringe)*) 1 mg IV Q4H PRN Reason: SHORTNESS OF BREATH Omeprazole (Prilosec Cap*) 20 mg PO DAILY@0600 [facility] Ondansetron HCl (Zofran Inj*) 4 mg IV Q6H PRN Reason: NAUSEA Tiotropium [place] (Spiriva Cap.Inh*) 1 cap INH DAILY [facility] Vital Signs - 8 hr 09/12/17 09/12/17 09/12/17 01:08 03:25 07:51 Temperature 97.4 F Pulse Rate 87 87 75 Respiratory 20 14 16 Rate Blood Pressure 103/47 (mmHg) O2 Sat by Pulse 100 99 97 Oximetry 09/12/17 09/12/17 08:08 08:11 Temperature 97.6 F Pulse Rate 93 Respiratory Rate Blood Pressure 111/58 (mmHg) O2 Sat by Pulse 99 97 Oximetry Oxygen Devices in Use Now: Nasal Cannula - 2.5 L Appearance: NAD, sitting up in bed Respiratory: Symmetrical Chest Expansion and Respiratory Effort, Clear to Auscultation - , diminished Cardiovascular: NL Sounds; No Murmurs; No JVD, RRR Abdominal: NL Sounds; No Tenderness; No Distention Extremities: No Edema Skin: No Rash or Ulcers Neurological: Alert and Oriented x 3, NL Muscle Strength and Tone Lines/Tubes/Other Access: Clean, Dry and Intact Peripheral IV - site benign Nutrition: Taking PO's Result Diagrams: 09/12/17 06:22 09/12/17 06:23 Additional Lab and Data: Microbiology and Other Data: Microbiology 09/12/17 00:33 Nasal Screen MRSA (PCR)(BIANCA) - Final Nasal Mrsa Detected Assess/Plan/Problems-Billing Assessment: Ms. 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 - Patient Problems (1) COPD exacerbation Code(s): J44.1 - CHRONIC OBSTRUCTIVE PULMONARY DISEASE W (ACUTE) EXACERBATION SNOMED Code(s): 678578188367479 Comment: - With associated SIRS and mildly elevated procalcitonin - Tachycardia improved, tachypnea and leukocytosis resolved - Continue dulera, spiriva, azithromycin, IV solumedrol, and albuterol nebs (2) UTI (urinary tract infection) Comment: - Urine culture pending - Pt reports dysurina and lower ABD pain - Blood cultures with 1/4 bottles positive for gram negative rods - Will recheck a renal/bladder US - Will start Ceftriaxone (3) History of lung cancer Code(s): Z85.118 - PERSONAL HISTORY OF MALIGNANT NEOPLASM OF BRONCHUS AND LUNG SNOMED Code(s): 321279804 Comment: - S/P right upper lobectomy (4) History of colorectal cancer Code(s): Z85.038 - PERSONAL HISTORY OF MALIGNANT NEOPLASM OF LARGE INTESTINE SNOMED Code(s): 884229729 Comment: - S/P colectomy (5) Anxiety Code(s): F41.9 - ANXIETY DISORDER, UNSPECIFIED SNOMED Code(s): 26637565 Comment: - Continue Xanax prn (6) HTN (hypertension) Code(s): I10 - ESSENTIAL (PRIMARY) HYPERTENSION SNOMED Code(s): 61241880 Comment: - Controlled, SBP 100-120's - Continue amlodipine and metoprolol (7) DVT prophylaxis Code(s): SMA9181 - SNOMED Code(s): 721582893 Comment: - Continue SQ heparin (8) DNR (do not resuscitate) Status and Disposition: Inpatient. Discharge to home when medically stable.
[2017-09-12] MEDS: Azithromycin TAB* 250 MG PO SCH (08:55)
[2017-09-12] MEDS: Metoprolol Succinate XL TAB* 25 MG PO SCH (08:55)
[2017-09-12] MEDS: Magnesium Oxide TAB* 400 MG PO SCH (08:56)
[2017-09-12] MEDS: ALPRAZolam TAB* 0.5 MG PO SCH ×2 (08:56→20:37)
[2017-09-12] MEDS: amLODIPine TAB* 5 MG PO SCH (08:57)
[2017-09-12] MEDS ORDERED: Spiriva Inhaler DEVICE* 1 EACH DEVICE INH ONE (09:00)
[2017-09-12] MEDS: Acetaminophen TAB* 325 MG PO PRN (14:18)
[2017-09-12] MEDS ORDERED: cefTRIAXone(*) 1 GM in NS 0.9% 50 ML* 50 ML IVPB SCH (18:00)
--- NOTE | 2017-09-12 20:30 | RAD ---
INDICATION: Acute renal failure COMPARISON: CT abdomen pelvis June 23, 2016 TECHNIQUE: Real-time ultrasound examination of the bilateral kidneys and urinary bladder including grayscale and Doppler color flow analysis. FINDINGS: Bilaterally the kidneys are normal in size. The renal cortices exhibit very mild increased echogenicity. There are no hypervascular renal masses. There are no renal calculi or hydronephrosis identified. IMPRESSION: Mildly increased echogenicity of the renal cortices could be seen in the setting of medical renal disease. There are no signs of hydronephrosis.
[2017-09-13] MEDS: Albuterol 2.5 MG/3 ML NEB.SOL* (0.083%) INH SCH ×4 (00:58→19:11)
[2017-09-13 04:58] LABS: Hematocrit 33 % (35-47); Hemoglobin 10.6 g/dl (12.0-16.0); Mean Corpuscular HGB Conc 32 g/dl (31-36); Mean Corpuscular Hemoglobin 30 pg (27-31); Mean Corpuscular Volume 93 fL (80-97); Mean Platelet Volume 10 um3 (7.4-10.4); Platelet Count 245 10^3/ul (150-450); Red Blood Count 3.54 10^6/ul (4.0-5.4); Red Cell Distribution Width 15 % (10.5-15); White Blood Count 27.2 10^3/ul (3.5-10.8)
[2017-09-13 05:14] LABS: ABS Basophils 0 10^3/ul (0-0.2); ABS Eosinophils 0 10^3/ul (0-0.6); ABS Lymphocytes 0.5 10^3/ul (1.0-4.8); ABS Monocytes 1.4 10^3/ul (0-0.8); ABS Neutrophils 25.2 10^3/ul (1.5-7.7); ABS Nucleated RBC 0 10^3/ul; Eosinophil % 0 % (0-6); Nucleated Red Blood Cells % 0
[2017-09-13] MEDS: Omeprazole CAP* 20 MG PO SCH (06:17)
[2017-09-13] MEDS: methylPREDNISolone SOD 40 MG* 1 ML VIAL IV SCH (06:17)
[2017-09-13] MEDS: Heparin VIAL(*) 5000 UNITS/ML VIAL (FIVE THOUSAND) SUBCUT SCH ×3 (06:17→21:17)
[2017-09-13] MEDS: Tiotropium CAP.INH* CAP.INH/18 MCG (USE ORDER SET !) INH SCH (07:00)
[2017-09-13] MEDS: Mometasone/Formoter 200/5 MDI INH SCH ×2 (07:00→19:11)
[2017-09-13] MEDS ORDERED: KCL 20 MEQ/100 ML IVPREMIX* 20 MEQ/100 ML BAG IV ONE (07:12)
[2017-09-13] MEDS ORDERED: Potassium Chloride IV* 20 MEQ in NS 0.9% 100 ML* 100 ML IVPB ONE (08:00)
[2017-09-13] MEDS: Metoprolol Succinate XL TAB* 25 MG PO SCH (08:17)
[2017-09-13] MEDS: Azithromycin TAB* 250 MG PO SCH (08:18)
[2017-09-13] MEDS: Magnesium Oxide TAB* 400 MG PO SCH (08:19)
[2017-09-13] MEDS: amLODIPine TAB* 5 MG PO SCH (08:22)
[2017-09-13] MEDS: ALPRAZolam TAB* 0.5 MG PO SCH ×2 (08:35→21:16)
--- NOTE | 2017-09-13 11:58 | PN ---
Subjective Date of Service: 09/13/17 Interval History: Patient seen and examined at bedside. Denies fever, chills, chest discomfort, N/ V/D or urinary symptoms. Pt states that she continues to have shortness of breath above her baseline. She also reports an occasional cough. She uses 2.5 L oxygen via [place]. She states that she continues to feel "spent". Family History: Unchanged from Admission Social History: Unchanged from Admission Past Medical History: Unchanged from Admission Objective Active Medications: Acetaminophen (Tylenol Tab*) 650 mg PO Q6H PRN Reason: FEVER/PAIN Albuterol (Ventolin 2.5 Mg/3 Ml Neb.Lety*) 2.5 mg INH Q2H PRN Reason: SOB/ WHEEZING Albuterol (Ventolin 2.5 Mg/3 Ml Neb.Lety*) 2.5 mg INH [id number] AWAKE [facility] Alprazolam (Xanax Tab*) 0.5 mg PO BID [facility] Amlodipine Besylate (Norvasc Tab*) 2.5 mg PO DAILY [facility] Azithromycin (Zithromax Tab*) 500 mg PO DAILY [facility] Heparin Sodium (Porcine) (Heparin Vial(*)) 5,000 units SUBCUT Q8HR [facility] Sodium Chloride (Ns 0.9% 1000 Ml*) 1,000 mls @ 50 mls/hr IV PER RATE [facility] Ceftriaxone Sodium 1 gm/ (Sodium Chloride) 50 mls @ 200 mls/hr IVPB Q24H [facility] Magnesium Oxide (Magox 400 Tab*) 400 mg PO DAILY [facility] Melatonin (Melatonin (Nf)) 3 mg PO BEDTIME PRN; Protocol Reason: Sleep Methylprednisolone Sodium Succinate (Solu-Medrol 40 Mg) 40 mg IV Q8H [facility] Metoprolol Succinate (Toprol Xl Tab*) 25 mg PO DAILY [facility] Mometasone Furoate/Formoterol Fumar (Dulera 200/5 Mdi*) 2 puff INH BID [facility] Morphine Sulfate (Morphine Inj (Syringe)*) 1 mg IV Q4H PRN Reason: SHORTNESS OF BREATH Omeprazole (Prilosec Cap*) 20 mg PO DAILY@0600 [facility] Ondansetron HCl (Zofran Inj*) 4 mg IV Q6H PRN Reason: NAUSEA Tiotropium [place] (Spiriva Cap.Inh*) 1 cap INH DAILY [facility] Vital Signs - 8 hr 09/13/17 09/13/17 06:53 07:36 Temperature 97.5 F Pulse Rate 89 103 Respiratory 14 18 Rate Blood Pressure 142/44 (mmHg) O2 Sat by Pulse 98 99 Oximetry Oxygen Devices in Use Now: Nasal Cannula - 2.5 L Appearance: NAD, sitting up in a chair Ears/Nose/Mouth/Throat: Mucous Membranes Moist Respiratory: Symmetrical Chest Expansion and Respiratory Effort, Clear to Auscultation - , diminished Cardiovascular: NL Sounds; No Murmurs; No JVD, RRR Abdominal: NL Sounds; No Tenderness; No Distention Extremities: No Edema Skin: No Rash or Ulcers Neurological: Alert and Oriented x 3, NL Muscle Strength and Tone Lines/Tubes/Other Access: Clean, Dry and Intact Peripheral IV - site benign Nutrition: Taking PO's Result Diagrams: 09/13/17 04:35 09/13/17 04:35 Additional Lab and Data: Microbiology and Other Data: Microbiology 09/12/17 00:33 Nasal Screen MRSA (PCR)(BIANCA) - Final Nasal Mrsa Detected Assess/Plan/Problems-Billing Assessment: Ms. 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 - Patient Problems (1) COPD exacerbation Code(s): J44.1 - CHRONIC OBSTRUCTIVE PULMONARY DISEASE W (ACUTE) EXACERBATION SNOMED Code(s): 794990891113818 Comment: - With associated SIRS and mildly elevated procalcitonin - Tachycardia improved, again with leukocytosis (suspect secondary to steroids) , and tachypnea resolved - Continue dulera, spiriva, azithromycin, IV solumedrol (change to PO steroids) , and albuterol nebs (2) UTI (urinary tract infection) Comment: - Urine culture with E coli, > 10K - Pt reports dysurina and lower ABD pain - Blood cultures with 1/4 bottles positive for E coli - Renal/bladder US without significant findings - Continue Ceftriaxone (3) Bacteremia due to Escherichia coli Code(s): R78.81 - BACTEREMIA SNOMED Code(s): 121845111472 Comment: - Blood culture 1/4 positive for E coli - Will discuss the case with ID in the AM - Will continue ceftriaxone (4) Hypokalemia Code(s): E87.6 - HYPOKALEMIA SNOMED Code(s): 57680609 Comment: - Will give replacement and recheck in the AM (5) History of lung cancer Code(s): Z85.118 - PERSONAL HISTORY OF MALIGNANT NEOPLASM OF BRONCHUS AND LUNG SNOMED Code(s): 029249338 Comment: - S/P right upper lobectomy (6) History of colorectal cancer Code(s): Z85.038 - PERSONAL HISTORY OF MALIGNANT NEOPLASM OF LARGE INTESTINE SNOMED Code(s): 000059069 Comment: - S/P colectomy (7) Anxiety Code(s): F41.9 - ANXIETY DISORDER, UNSPECIFIED SNOMED Code(s): 23194334 Comment: - Continue Xanax prn (8) HTN (hypertension) Code(s): I10 - ESSENTIAL (PRIMARY) HYPERTENSION SNOMED Code(s): 01722817 Comment: - Controlled, SBP 110-140's - Continue amlodipine and metoprolol (9) DVT prophylaxis Code(s): HXD8381 - SNOMED Code(s): 102386043 Comment: - Continue SQ heparin (10) DNR (do not resuscitate) Status and Disposition: Inpatient. Discharge to home when medically stable.
[2017-09-13] MEDS ORDERED: cefTRIAXone 1000 MG SYRINGE IVPB Q24H IVPB SCH ×2 (18:00)
[2017-09-13] MEDS: NS 0.9% 1000 ML* 1,000 ML IV SCH (21:16)
[2017-09-14] MEDS ORDERED: hydrOXYzine HCL TAB* 25 MG PO PRN (00:02)
[2017-09-14] MEDS: Albuterol 2.5 MG/3 ML NEB.SOL* (0.083%) INH SCH ×4 (02:52→19:16)
[2017-09-14] MEDS: Heparin VIAL(*) 5000 UNITS/ML VIAL (FIVE THOUSAND) SUBCUT SCH ×3 (04:59→21:01)
[2017-09-14] MEDS: Omeprazole CAP* 20 MG PO SCH (04:59)
[2017-09-14 05:28] LABS: Hematocrit 32 % (35-47); Hemoglobin 10.4 g/dl (12.0-16.0); Mean Corpuscular HGB Conc 32 g/dl (31-36); Mean Corpuscular Hemoglobin 30 pg (27-31); Mean Corpuscular Volume 93 fL (80-97); Mean Platelet Volume 9 um3 (7.4-10.4); Platelet Count 274 10^3/ul (150-450); Red Blood Count 3.45 10^6/ul (4.0-5.4); Red Cell Distribution Width 15 % (10.5-15); White Blood Count 23.8 10^3/ul (3.5-10.8)
[2017-09-14 05:36] LABS: ABS Basophils 0 10^3/ul (0-0.2); ABS Eosinophils 0 10^3/ul (0-0.6); ABS Monocytes 1.6 10^3/ul (0-0.8); ABS Neutrophils 21.2 10^3/ul (1.5-7.7); ABS Nucleated RBC 0 10^3/ul; Eosinophil % 0 % (0-6); Lymphocyte % 4.2 % (25-47); Nucleated Red Blood Cells % 0
[2017-09-14 05:52] LABS: EGFR Non-African American 109.9 (>60)
[2017-09-14] MEDS: Tiotropium CAP.INH* CAP.INH/18 MCG (USE ORDER SET !) INH SCH (07:34)
[2017-09-14] MEDS: Mometasone/Formoter 200/5 MDI INH SCH ×2 (07:36→19:16)
--- NOTE | 2017-09-14 09:30 | PN ---
Subjective Date of Service: 09/14/17 Interval History: Patient seen and examined at bedside. Denies fever, N/V/D. Pt states that she continues to have shortness of breath that is improving, but not yet back to her baseline. She reports an episode of "chest discomfort" last evening. Pt states that the pain started in her left axillary region and radiated out over her upper chest. This pain resolved spontaneously without ay intervention. She also reports chills. She feels like her symptoms have been dismissed in the past and she has returned after being discharge, she feels like she needs one more day. Family History: Unchanged from Admission Social History: Unchanged from Admission Past Medical History: Unchanged from Admission Objective Active Medications: Acetaminophen (Tylenol Tab*) 650 mg PO Q6H PRN Reason: FEVER/PAIN Albuterol (Ventolin 2.5 Mg/3 Ml Neb.Lety*) 2.5 mg INH Q2H PRN Reason: SOB/ WHEEZING Albuterol (Ventolin 2.5 Mg/3 Ml Neb.Lety*) 2.5 mg INH [id number] AWAKE [facility] Alprazolam (Xanax Tab*) 0.5 mg PO BID [facility] Amlodipine Besylate (Norvasc Tab*) 2.5 mg PO DAILY [facility] Azithromycin (Zithromax Tab*) 500 mg PO DAILY [facility] Heparin Sodium (Porcine) (Heparin Vial(*)) 5,000 units SUBCUT Q8HR [facility] Hydroxyzine HCl (Atarax Tab*) 25 mg PO Q6H PRN Reason: puritis Sodium Chloride (Ns 0.9% 1000 Ml*) 1,000 mls @ 50 mls/hr IV PER RATE [facility] Ceftriaxone Sodium 1,000 mg/ (Sterile Water) 10 mls @ 40 mls/hr IVPB Q24H [facility] Magnesium Oxide (Magox 400 Tab*) 400 mg PO DAILY [facility] Melatonin (Melatonin (Nf)) 3 mg PO BEDTIME PRN; Protocol Reason: Sleep Metoprolol Succinate (Toprol Xl Tab*) 25 mg PO DAILY [facility] Mometasone Furoate/Formoterol Fumar (Dulera 200/5 Mdi*) 2 puff INH BID [facility] Morphine Sulfate (Morphine Inj (Syringe)*) 1 mg IV Q4H PRN Reason: SHORTNESS OF BREATH Omeprazole (Prilosec Cap*) 20 mg PO DAILY@0600 [facility] Ondansetron HCl (Zofran Inj*) 4 mg IV Q6H PRN Reason: NAUSEA Polyvinyl Alcohol (Polyvinyl Alcohol 1.4% Opth*) 1 drop BOTH EYES Q2H PRN Reason: DRY EYE Prednisone (Deltasone Tab*) 50 mg PO DAILY [facility] Tiotropium [place] (Spiriva Cap.Inh*) 1 cap INH DAILY [facility] Vital Signs - 8 hr 09/14/17 09/14/17 03:00 07:35 Temperature 97.7 F 98.4 F Pulse Rate 91 87 Respiratory 18 28 Rate Blood Pressure 125/56 138/55 (mmHg) O2 Sat by Pulse 94 99 Oximetry Oxygen Devices in Use Now: Nasal Cannula - 2.5 L Appearance: NAD, sitting up on the side of the bed Ears/Nose/Mouth/Throat: Mucous Membranes Moist Respiratory: Symmetrical Chest Expansion and Respiratory Effort, Clear to Auscultation Cardiovascular: NL Sounds; No Murmurs; No JVD, RRR Abdominal: NL Sounds; No Tenderness; No Distention Extremities: No Edema Skin: No Rash or Ulcers Neurological: Alert and Oriented x 3, NL Muscle Strength and Tone Lines/Tubes/Other Access: Clean, Dry and Intact Peripheral IV - site benign Nutrition: Taking PO's Result Diagrams: 09/14/17 04:54 09/14/17 04:54 Additional Lab and Data: Microbiology and Other Data: Microbiology 09/12/17 00:33 Nasal Screen MRSA (PCR)(BIANCA) - Final Nasal Mrsa Detected Assess/Plan/Problems-Billing Assessment: Ms. 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 - Patient Problems (1) COPD exacerbation Code(s): J44.1 - CHRONIC OBSTRUCTIVE PULMONARY DISEASE W (ACUTE) EXACERBATION SNOMED Code(s): 242195481711519 Comment: - With associated SIRS and mildly elevated procalcitonin - Again with leukocytosis (suspect secondary to steroids), and tachycardia and tachypnea resolved - Continue dulera, spiriva, azithromycin, prednisone, and albuterol nebs (2) UTI (urinary tract infection) Comment: - Urine culture with E coli, > 10K - Pt reports dysurina and lower ABD pain - Blood cultures with 1/4 bottles positive for E coli - Renal/bladder US without significant findings - Continue Ceftriaxone (3) Bacteremia due to Escherichia coli Code(s): R78.81 - BACTEREMIA SNOMED Code(s): 666849621604 Comment: - Blood culture 1/4 positive for E coli - ID consult, pending - Will continue ceftriaxone (4) Hypokalemia Code(s): E87.6 - HYPOKALEMIA SNOMED Code(s): 62485651 Comment: - Resolved (5) History of lung cancer Code(s): Z85.118 - PERSONAL HISTORY OF MALIGNANT NEOPLASM OF BRONCHUS AND LUNG SNOMED Code(s): 047418483 Comment: - S/P right upper lobectomy (6) Chronic respiratory failure with hypoxia Comment: - On Oxygen at 2.5 L at home (7) History of colorectal cancer Code(s): Z85.038 - PERSONAL HISTORY OF MALIGNANT NEOPLASM OF LARGE INTESTINE SNOMED Code(s): 962650938 Comment: - S/P colectomy (8) Anxiety Code(s): F41.9 - ANXIETY DISORDER, UNSPECIFIED SNOMED Code(s): 01560534 Comment: - Continue Xanax prn (9) HTN (hypertension) Code(s): I10 - ESSENTIAL (PRIMARY) HYPERTENSION SNOMED Code(s): 21443774 Comment: - Controlled, SBP 110-120's - Continue amlodipine and metoprolol (10) DVT prophylaxis Code(s): [id number] - SNOMED Code(s): 046091366 Comment: - Continue SQ heparin (11) DNR (do not resuscitate) Status and Disposition: Inpatient. Discharge to home when medically stable, suspect she will be ready for discharge home in the AM.
[2017-09-14] MEDS: Metoprolol Succinate XL TAB* 25 MG PO SCH (09:51)
[2017-09-14] MEDS: predniSONE TAB* 50 MG PO SCH (09:51)
[2017-09-14] MEDS: Magnesium Oxide TAB* 400 MG PO SCH (09:52)
[2017-09-14] MEDS: Azithromycin TAB* 250 MG PO SCH (09:52)
[2017-09-14] MEDS: amLODIPine TAB* 5 MG PO SCH (09:53)
[2017-09-14] MEDS: ALPRAZolam TAB* 0.5 MG PO SCH (10:47)
[2017-09-14] MEDS ORDERED: ALPRAZolam TAB* 0.5 MG PO PRN (11:07)
[2017-09-14] MEDS: Acetaminophen TAB* 325 MG PO PRN (14:29)
[2017-09-14] MEDS: Artificial Tears* 15 ML BTL BOTH EYES PRN (14:30)
[2017-09-14] MEDS: Cephalexin CAP* 500 MG PO SCH ×2 (14:30→20:57)
--- NOTE | 2017-09-14 15:29 | CONS ---
CONSULTATION REPORT: DATE OF CONSULT: 09/14/17 REQUESTING PROVIDER: Jerica Rodrigues NP CONSULTING SERVICE: Infectious Disease. REASON FOR CONSULTATION: E. coli bacteremia. IMPRESSION: 1. Admitted with chronic obstructive pulmonary disease exacerbation, improving. 2. Escherichia coli bacteremia with Escherichia coli in the urine. The urinalysis shows blood and leukocyte esterase. She had dysuria. I do think it is mostly likely related to urinary tract infections, particularly cystitis. She had no lower abdominal pain. She had minimal diarrhea, has not had a diarrhea here. RECOMMENDATION: As there is only 1 of 4 bottles growing E. coli and she has lost her IV access, we will change her from ceftriaxone to Keflex for 10 more days. HISTORY OF PRESENT ILLNESS: This is an 86-year-old woman admitted with shortness of breath. She had been in the ER on 09/01/17 with shortness of breath and cough. She was treated with nebulizers with improvement in her symptoms. She had had worsening shortness of breath, cough returned and wheeze. Her blood cultures at the initial visit in August were negative. There was no urine culture at that time. Because of her symptoms, she came back on the , her white count was 13,000. She was started on corticosteroids and bronchodilators, ceftriaxone. She had improvement in her symptoms over the last 3 or 4 days. Her blood cultures have come back with 1 of 4 growing E. coli , urine culture 10,000 colonies of E. coli. She has had some urinary frequency and dysuria. No flank pain. She had a renal ultrasound that showed no hydronephrosis. PAST MEDICAL HISTORY: 1. COPD. 2. Right upper lobe lobectomy for lung cancer. 3. Status post colectomy for colorectal cancer. 4. Hypertension. MEDICATIONS: 1. Tylenol. 2. Alprazolam as needed. 3. Amlodipine. 4. Azithromycin. 5. Ceftriaxone. 6. Heparin subcutaneous injection. 7. Metoprolol. 8. Prednisone 50 mg a day. 9. Spiriva. ALLERGIES: CODEINE, HYDRALAZINE, and SULFA. FAMILY HISTORY: There is no recurrent infections. SOCIAL HISTORY: She lives in [place]. She has no travel or sick contacts. REVIEW OF SYSTEMS: All negative except as noted above. PHYSICAL EXAM: Vital Signs: Temperature 37, heart rate 87, respiratory rate 20 , blood pressure 130/55, oxygen saturation 99% on 3 L. In general, she is awake , not in distress. Neurologic: She is oriented x3, follows commands. HEENT: There is no conjunctival hemorrhage. Oropharynx without lesions. Neck: Supple without mass. Lymph Nodes: There is no cervical, supraclavicular, inguinal, axillary, or epitrochlear lymphadenopathy. Heart is regular rate and rhythm without murmurs, rubs or gallops. Lungs are clear to auscultation bilaterally. Abdomen: Soft, nontender, nondistended. There are bowel sounds present. Skin: There is no rash or splinter hemorrhages. Musculoskeletal: There is no spine tenderness to palpation. No joint synovitis. DIAGNOSTIC STUDIES/LAB DATA: White blood cell count 23, hemoglobin 10, platelets 274,000. Creatinine is 0.5. CRP 92, down from 200. Please see impression and recommendations outlined above, which I have discussed with Jerica Rodirgues NP. Thank you for asking me to see Ms. Tucker in consultation. [id number]/[facility] #: [id number] JEREMIAH
[2017-09-15] MEDS: Albuterol 2.5 MG/3 ML NEB.SOL* (0.083%) INH SCH ×2 (01:51→07:59)
[2017-09-15] MEDS: Heparin VIAL(*) 5000 UNITS/ML VIAL (FIVE THOUSAND) SUBCUT SCH (06:00)
[2017-09-15] MEDS: Omeprazole CAP* 20 MG PO SCH (06:01)
[2017-09-15] MEDS: Mometasone/Formoter 200/5 MDI INH SCH (08:00)
[2017-09-15] MEDS: Tiotropium CAP.INH* CAP.INH/18 MCG (USE ORDER SET !) INH SCH (08:00)
[2017-09-15] MEDS: Artificial Tears* 15 ML BTL BOTH EYES PRN (08:09)
[2017-09-15] MEDS: Metoprolol Succinate XL TAB* 25 MG PO SCH (08:10)
[2017-09-15] MEDS: Cephalexin CAP* 500 MG PO SCH (08:10)
[2017-09-15] MEDS: predniSONE TAB* 50 MG PO SCH (08:11)
[2017-09-15] MEDS: Azithromycin TAB* 250 MG PO SCH (08:11)
[2017-09-15] MEDS: Magnesium Oxide TAB* 400 MG PO SCH (08:11)
[2017-09-15] MEDS: amLODIPine TAB* 5 MG PO SCH (08:12)
[2017-09-15 09:19] VITALS: BP 152/49
--- NOTE | 2017-09-15 13:04 | PN ---
Subjective Date of Service: 09/15/17 Interval History: patient examined at the bedside. Patient denies chest pain or shortness of breath. Denies abd pain. Denies n/v/d. Family History: Unchanged from Admission Social History: Unchanged from Admission Past Medical History: Unchanged from Admission Objective Active Medications: Acetaminophen (Tylenol Tab*) 650 mg PO Q6H PRN PRN Reason: FEVER/PAIN Last Admin: 09/14/17 14:29 Dose: 650 mg Albuterol (Ventolin 2.5 Mg/3 Ml Neb.Lety*) 2.5 mg INH Q2H PRN PRN Reason: SOB/WHEEZING Albuterol (Ventolin 2.5 Mg/3 Ml Neb.Lety*) 2.5 mg INH [id number] AWAKE [facility] Last Admin: 09/15/17 07:59 Dose: 2.5 mg Alprazolam (Xanax Tab*) 0.5 mg PO BID PRN PRN Reason: ANXIETY Last Admin: 09/14/17 20:58 Dose: 0.5 mg Amlodipine Besylate (Norvasc Tab*) 2.5 mg PO DAILY [facility] Last Admin: 09/15/17 08:12 Dose: 2.5 mg Azithromycin (Zithromax Tab*) 500 mg PO DAILY [facility] Stop: 09/16/17 10:00 Last Admin: 09/15/17 08:11 Dose: 500 mg Cephalexin HCl (Keflex Cap*) 500 mg PO TID [facility] Last Admin: 09/15/17 08:10 Dose: 500 mg Heparin Sodium (Porcine) (Heparin Vial(*)) 5,000 units SUBCUT Q8HR [facility] Last Admin: 09/15/17 06:00 Dose: 5,000 units Hydroxyzine HCl (Atarax Tab*) 25 mg PO Q6H PRN PRN Reason: puritis Last Admin: 09/15/17 08:10 Dose: 25 mg Magnesium Oxide (Magox 400 Tab*) 400 mg PO DAILY [facility] Last Admin: 09/15/17 08:11 Dose: 400 mg Melatonin (Melatonin (Nf)) 3 mg PO BEDTIME PRN; Protocol PRN Reason: Sleep Last Admin: 09/12/17 23:32 Dose: 3 mg Metoprolol Succinate (Toprol Xl Tab*) 25 mg PO DAILY [facility] Last Admin: 09/15/17 08:10 Dose: 25 mg Mometasone Furoate/Formoterol Fumar (Dulera 200/5 Mdi*) 2 puff INH BID [facility] Last Admin: 09/15/17 08:00 Dose: 2 puff Omeprazole (Prilosec Cap*) 20 mg PO DAILY@0600 [facility] Last Admin: 09/15/17 06:01 Dose: 20 mg Polyvinyl Alcohol (Polyvinyl Alcohol 1.4% Opth*) 1 drop BOTH EYES Q2H PRN PRN Reason: DRY EYE Last Admin: 09/15/17 08:09 Dose: 1 drp Prednisone (Deltasone Tab*) 50 mg PO DAILY [facility] Last Admin: 09/15/17 08:11 Dose: 50 mg Tiotropium [place] (Spiriva Cap.Inh*) 1 cap INH DAILY [facility] Last Admin: 09/15/17 08:00 Dose: 1 cap Vital Signs - 8 hr 09/15/17 09/15/17 09/15/17 07:11 08:00 08:03 Temperature 98.0 F Pulse Rate 81 73 Respiratory 18 18 16 Rate Blood Pressure 152/49 (mmHg) O2 Sat by Pulse 99 98 Oximetry Oxygen Devices in Use Now: Nasal Cannula Appearance: appears comfortable sitting in bed. Eyes: No Scleral Icterus Ears/Nose/Mouth/Throat: Clear Oropharnyx, Mucous Membranes Moist Neck: NL Appearance and Movements; NL JVP, Trachea Midline Respiratory: Symmetrical Chest Expansion and Respiratory Effort, - - diminished t/o bilat Cardiovascular: NL Sounds; No Murmurs; No JVD, No Edema Abdominal: NL Sounds; No Tenderness; No Distention Extremities: No Edema, No Clubbing, Cyanosis Skin: No Rash or Ulcers Neurological: Alert and Oriented x 3 Nutrition: Taking PO's Result Diagrams: 09/14/17 04:54 09/14/17 04:54 Additional Lab and Data: Microbiology and Other Data: Microbiology 09/12/17 00:33 Nasal Screen MRSA (PCR)(BIANCA) - Final Nasal Mrsa Detected Assess/Plan/Problems-Billing Assessment: Ms. 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 - Patient Problems (1) Bacteremia due to Escherichia coli Status: Acute Code(s): R78.81 - BACTEREMIA SNOMED Code(s): 812833782377 Comment: - Blood culture 1/4 positive for E coli - ID consult, pending - Will discharge home on keflex as per ID recommendation for 10 days (2) UTI (urinary tract infection) Status: Acute Comment: - Urine culture with E coli, 10K - Pt reports dysurina and lower ABD pain~ resolved - Blood cultures with 1/4 bottles positive for E coli - Continue Will discharge home on Keflex 500 mg TID for 10 days as per ID (3) COPD exacerbation Status: Acute Code(s): J44.1 - CHRONIC OBSTRUCTIVE PULMONARY DISEASE W (ACUTE ) EXACERBATION SNOMED Code(s): 218475901517914 Comment: - With associated SIRS and mildly elevated procalcitonin -leukocytosis ~ suspect this is related to steroid use ~ azithromycin ~ completed -WIll continue home medications, albuterol nebs as needed~ prednisone 40 mg daily for 3 days (4) Hypokalemia Status: Acute Code(s): E87.6 - HYPOKALEMIA SNOMED Code(s): 38704045 Comment: - Resolved (5) GERD (gastroesophageal reflux disease) Status: Acute Code(s): K21.9 - GASTRO-ESOPHAGEAL REFLUX DISEASE WITHOUT ESOPHAGITIS SNOMED Code(s): 079160314 Comment: stable~ Continue omeprazole. (6) DVT prophylaxis Status: Acute Code(s): SVV8513 - SNOMED Code(s): 375310807 Comment: - Continue SQ heparin (7) DNR (do not resuscitate) Status: Acute Status and Disposition: Inpatient. Discharge to home this AM.
== END 2017-09-15 13:55 | disposition home or self-care (01) | DRG 191 ==
LOC: ED 17:46 → MED 23:00
PROVIDERS: ADMIT Hospitalist; ATTEND Hospitalist
DX: J44.1 Chronic obstructive pulmonary disease with (acute) exacerbation (principal); N39.0 Urinary tract infection, site not specified; J96.11 Chronic respiratory failure with hypoxia; R78.81 Bacteremia; Z99.81 Dependence on supplemental oxygen; B96.20 Unspecified Escherichia coli [E. coli] as the cause of diseases classified elsewhere; E87.6 Hypokalemia; K21.9 Gastro-esophageal reflux disease without esophagitis; Z66 Do not resuscitate; I10 Essential (primary) hypertension; Z85.118 Personal history of other malignant neoplasm of bronchus and lung; Z85.038 Personal history of other malignant neoplasm of large intestine; F41.9 Anxiety disorder, unspecified; Z79.899 Other long term (current) drug therapy; Z88.5 Allergy status to narcotic agent; Z88.2 Allergy status to sulfonamides; Z88.8 Allergy status to other drugs, medicaments and biological substances; Z85.820 Personal history of malignant melanoma of skin; Z87.891 Personal history of nicotine dependence; Z82.49 Family history of ischemic heart disease and other diseases of the circulatory system
CPT/HCPCS: 36415; 71045; 76775; 80048; 80053; 81003; 81015; 82550; 82803; 83605; 83880; 84145; 84484; 85025; 85610; 85652; 85730; 86140; 87040; 87077; 87086; 87186; 87205; 87502; 87641; 93005; 94640; 94760; 99285; A9270-GY; G8978-GP-CI; G8978-GP-CK; G8979-GP-CH; G8979-GP-CJ; G8987-GO-CI; G8988-GO-CI; G8989-GO-CI; J0456; J0696; J1644; J2405; J2920; J2930; J3480; J7512

== ENCOUNTER 2017-11-28 17:19 | Emergency (ER) | payer MEDICARE, OTHER ==
--- OUTSIDE RECORDS SUMMARY | 2017-11-28 17:59 | XMS REPORT ---
:1930 External Reference #:[id number] Author Organization [facility] Address [address] [place] [address] Phone [phone] Care Team Providers Name Role Phone Elmo Mendez M.D. Primary Care Physician Unavailable Payers Type Date Identification Numbers Payment Provider Subscriber Medicare Primary Effective: Policy Number: Medicare - NGS Crista Tucker 1995 [id number] PayID: [id number] [address] [place] [address] Commercial Effective: Policy Number: AMA Insurance Crista Tucker 1995 [id number] Agency PayID: [id number] [address] [place] [address] Problems Date Description Provider Status Onset: Chronic bullous emphysema Active Onset: Family history of malignant neoplasm Active of lung Onset: Hypercholesterolemia Active Onset: 11/12/2015 Punctate keratitis Monik Campbell O.D. Active Onset: 11/12/2015 Vitreous degeneration Monik Campbell O.D. Active Onset: 11/12/2015 Other secondary cataract, bilateral Monik Campbell O.D. Active Onset: 11/22/2015 Presbyopia Monik Campbell O.D. Active Onset: 11/22/2015 Presence of intraocular lens Monik Campbell O.D. 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 Night For 2 Weeks Refresh 11/20/ Active Solution 1% 30ml 1 drop both Monik Nichols Liquigel 2016 eyes four [place], times a day O.D. Warm 11/20/ Active every day Monik Nichols Compresses 2015 [place], O.DGerry Systane 11/10/ Active Ointment every night Monik Nichols Nighttime 2015 [place], O.DGerry Clear Eyes 11/10/ Active Solution 5-6mg/ml Monik Nichols Natural Tears 2015 [place], Lubricant O.DGerry Alprazolam / Active Tablets 0.5mg Take 1 Unknown 0000 Tablet By Mouth 4 Times A Day as Needed Amlodipine / Active Tablets 10mg take 1 Unknown Besylate 0000 tablet by mouth once daily Meclizine HCL / Active Tablets 12.5mg take 1 Unknown 0000 tablet by mouth every 6 hours if needed dizziness Aspirin Ec Low / Active Tablets DR 81mg take 1 Unknown Dose 0000 tablet by mouth once daily Cranberry / Active Capsules 140-100-3m Unknown 0000 g-mg-Unit Multivital / Active Tablets Unknown [place] 0000 Results Description No Information Procedures Date CPT Code Description Status 03/25/2017 08510 Determination Of Refractive State Completed 03/25/2017 62143 Est Patient Comprehensive Exam Completed 11/12/2015 98064 Est Patient Comprehensive Exam Completed 12/08/2013 04446 Determination Of Refractive State Completed 12/08/2013 97296 Est Patient Comprehensive Exam Completed 12/08/2012 56382 Est Patient Comprehensive Exam Completed 09/26/2011 73360 Determination Of Refractive State Completed 09/26/2011 16401 Est Patient Comprehensive Exam Completed 09/24/2009 37251 New Patient Comprehensive Exam Completed 09/24/2009 04678 Determination Of Refractive State Completed 05/07/2005 95248 Extracapsular Cataract Extraction W/Intraocular Lens Completed 05/01/2005 31642 Ophthalmic Biometry Completed 04/30/2005 96608 Extracapsular Cataract Extraction W/Intraocular Lens Completed 04/22/2005 31660 Unlisted Procedure, Ophthalmological Completed 04/22/2005 11282 Ophthalmic Biometry Completed 04/14/2005 56860 Est Patient Comprehensive Exam Completed 10/11/2004 24789 Determination Of Refractive State Completed 10/11/2004 26374 Est Patient Comprehensive Exam Completed Plan of Care 11/19/2017 - Haresh Szymanski M.D.H01.001 Unspecified blepharitis right upper eyelidNew Medication:Erythromycin 5 mg/GMComments:Smoking can increase the risk of developing or worsening any eye related disease, as well as affect your overall health. If you are a smoker, we strongly recommend that you quit.If you are not a smoker, we strongly recommend that you do not start. Please follow Dr. Szymanski's instructions. WILL PRESCRIBE AN OINTMENT, USE 3 TIMES TO THE RIGHT EYE FOR TWO WEEKS THEN DISCONTINUE.USE HOT COMPRESSES FOR 3-5 MINUTES AT NIGHT TO BOTH EYELIDS.Follow up:1 Year Follow Up DFE You can expect to have your eyes dilated at your next visit. If Dr. Szymanski orders any additional testing, it may require extra time. We recommend that you bring sunglasses, as dilation drops often make you light sensitive until they wear off. We always recommend you bring someone to drive you home if you are uncomfortable driving with your eyes dilated. If you have any questions before your next visit, feel free to call our office at .H01.004 Unspecified blepharitis left upper eyelid
[2017-11-28] MEDS ORDERED: PROCHLORPERAZINE INJ 5 MG/ML 2 ML VIAL IV PRN (18:20)
[2017-11-28] MEDS ORDERED: NS 0.9% 1000 ML* 1,000 ML IV ONE ×2 (18:20→21:17)
[2017-11-28 19:03] LABS: Urine Appearance Cloudy; Urine Blood Negative (Negative); Urine Color Yellow; Urine Ketones Negative (Negative); Urine Protein Negative (Negative); Urine Specific Gravity 1.012 (1.010-1.030); Urine Urobilinogen Negative (Negative)
[2017-11-28 19:22] LABS: ABS Basophils 0.1 10^3/ul (0-0.2); ABS Eosinophils 0 10^3/ul (0-0.6); ABS Lymphocytes 1.7 10^3/ul (1.0-4.8); ABS Monocytes 0.6 10^3/ul (0-0.8); ABS Neutrophils 7.4 10^3/ul (1.5-7.7); ABS Nucleated RBC 0 10^3/ul; Eosinophil % 0.2 % (0-6); Hematocrit 43 % (35-47); Mean Corpuscular HGB Conc 33 g/dl (31-36); Mean Corpuscular Hemoglobin 29 pg (27-31); Mean Corpuscular Volume 90 fL (80-97); Mean Platelet Volume 9.2 um3 (7.4-10.4); Nucleated Red Blood Cells % 0.1; Platelet Count 233 10^3/ul (150-450); Red Blood Count 4.75 10^6/ul (4.0-5.4); Red Cell Distribution Width 15 % (10.5-15); White Blood Count 9.8 10^3/ul (3.5-10.8)
[2017-11-28 19:40] LABS: EGFR Non-African American 81.1 (>60)
--- NOTE | 2017-11-28 21:42 | ED ---
Tk Demarco Natalie, scribed for Demar Sweet MD on 11/28/17 at 1822 . GI/ HPI - HPI Summary HPI Summary: The patient is an 86 y/o F presenting to the ED c/o nausea and vomiting for the last two days. She has had abd pain from vomiting. Pt additionally c/o dizziness , fatigue, SOB, and weakness. Pt denies diarrhea and abnormal urination. - History of Current Complaint Chief Complaint: EDNauseaVomitDiarrh Time Seen by Provider: 11/28/17 17:59 Stated Complaint: GENERAL ILLNESS Hx Obtained From: Patient Onset/Duration: Started Days Ago, Still Present Timing: Lasting Days Severity: Moderate Current Severity: Moderate Pain Intensity: 0 Location of Pain: Diffuse Associated Signs and Symptoms: Positive: Dizziness, Weakness, Nausea, Vomiting, Abdominal Pain - Additional Pertinent History Primary Care Physician: YANETH - Allergy/Home Medications Allergies/Adverse Reactions: Allergies Allergy/AdvReac Type Severity Reaction Status Date / Time codeine Allergy Unknown Verified 09/11/17 17:51 Reaction Details hydralazine Allergy Difficulty Verified 09/11/17 17:51 Breathing Sulfa (Sulfonamide Allergy Unknown Verified 09/11/17 17:51 Antibiotics) Reaction Details PMH/Surg Hx/FS Hx/Imm Hx Cardiovascular History: Reports: Hx Hypertension Comment Only: Hx Congestive Heart Failure - Elevated BNP Respiratory History: Reports: Hx Chronic Obstructive Pulmonary Disease (COPD) - 2.5L at night and PRN, Hx Lung Cancer - 1988 with lobectomy, Other Respiratory Problems/Disorders - HX OF LUNG CA 1988 GI History: Reports: Other GI Disorders - colon CA Musculoskeletal History: Reports: Hx Arthritis, Hx Osteoporosis Denies: Hx Rheumatoid Arthritis, Hx Scoliosis Sensory History: Reports: Hx Contacts or Glasses Denies: Hx Hearing Aid, Hx Hearing Problem, Other Sensory Impairments Opthamlomology History: Reports: Hx Contacts or Glasses Denies: Other Sensory Impairments Neurological History: Reports: Other Neuro Impairments/Disorders - SPINAL STENOSIS Denies: Hx Headaches Psychiatric History: Reports: Hx Anxiety - Cancer History Cancer Type, 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 CA, Lung CA, melanoma, basal cell carcinoma - Surgical History Surgery Procedure, Year, and Place: upper L lung lobectomy, colectomy, breast implants, HYSTERECTOMY Infectious Disease History: No Infectious Disease History: Denies: Traveled Outside the [place] in Last 30 Days - Family History Known Family History: Positive: Other - GERD - Social History Alcohol Use: Weekly Alcohol Amount: one beer with dinner Hx Substance Use: No Substance Use Type: Reports: None Hx Tobacco Use: Yes Smoking Status (MU): Former Smoker Length of Time of Smoking/Using Tobacco: 25+ years Review of Systems Positive: Fatigue, Other - dizzy Positive: Shortness Of Breath Positive: Abdominal Pain, Vomiting, Nausea. Negative: Diarrhea Positive: no symptoms reported Positive: Weakness - generalized in the body All Other Systems Reviewed And Are Negative: Yes Physical Exam - Summary Physical Exam Summary: Appearance: The patient is well-nourished in no acute distress and in no acute pain. Skin: The skin is warm and dry and skin color reflects shows tenting. HEENT: The head is normocephalic and atraumatic. The pupils are equal and reactive. The conjunctivae are clear and without drainage. Nares are patent and without drainage. Mouth reveals dry mucous membranes and the throat is without erythema and exudate. The external ears are intact. The ear canals are patent and without drainage. The tympanic membranes are intact. Neck: The neck is supple with full range of motion and non-tender. There are no carotid bruits. There is no neck vein distension. Respiratory: Chest is non-tender. Lungs are clear to auscultation and breath sounds are symmetrical and equal. Cardiovascular: Heart is regular rate and rhythm. There is no murmur or rub auscultated. There is no peripheral edema and pulses are symmetrical and equal. Abdomen: The abdomen is soft and non-tender. There are normal bowel sounds heard in all four quadrants and there is no organomegaly palpated. Musculoskeletal: There is no back tenderness noted. Extremities are non-tender with full range of motion. There is good capillary refill. There is no peripheral edema or calf tenderness elicited. Neurological: Patient is alert and oriented to person, place and time. The patient has symmetrical motor strength in all four extremities. Cranial nerves are grossly intact. Deep tendon reflexes are symmetrical and equal in all four extremities. Psychiatric: The patient has an appropriate affect and does not exhibit any anxiety or depression. Triage Information Reviewed: Yes Vital Signs On Initial Exam: Initial Vitals Temp Pulse Resp BP Pulse Ox 97 F 90 25 205/89 96 11/28/17 17:29 11/28/17 17:29 11/28/17 17:29 11/28/17 17:29 11/28/17 17:29 Vital Signs Reviewed: Yes Diagnostics - Vital Signs Vital Signs Temp Pulse Resp BP Pulse Ox 11/28/17 17:29 97 F 90 25 205/89 96 - Laboratory Lab Results: Lab Results 11/28/17 11/28/17 11/28/17 Range/Units 18:53 19:04 19:04 WBC 9.8 (3.5-10.8) 10^3/ul RBC 4.75 (4.0-5.4) 10^6/ul Hgb 14.0 (12.0-16.0) g/dl Hct 43 (35-47) % MCV 90 (80-97) fL MCH 29 (27-31) pg MCHC 33 (31-36) g/dl RDW 15 (10.5-15) % Plt Count 233 (150-450) 10^3/ul MPV 9.2 (7.4-10.4) um3 Neut % (Auto) 76.1 (38-83) % Lymph % (Auto) 17.0 L (25-47) % [place] % (Auto) 5.8 (0-7) % Eos % (Auto) 0.2 (0-6) % Baso % (Auto) 0.9 (0-2) % Absolute Neuts (auto) 7.4 (1.5-7.7) 10^3/ul Absolute Lymphs (auto) 1.7 (1.0-4.8) 10^3/ul Absolute Monos (auto) 0.6 (0-0.8) 10^3/ul Absolute Eos (auto) 0 (0-0.6) 10^3/ul Absolute Basos (auto) 0.1 (0-0.2) 10^3/ul Absolute Nucleated RBC 0 10^3/ul Nucleated RBC % 0.1 Sodium 136 L (139-145) mmol/L Potassium 3.8 (3.5-5.0) mmol/L Chloride 100 L (101-111) mmol/L Carbon Dioxide 28 (22-32) mmol/L Anion Gap 8 (2-11) mmol/L BUN 14 (6-24) mg/dL Creatinine 0.69 (0.51-0.95) mg/dL Est GFR ( Amer) 104.2 (>60) Est GFR (Non-Af Amer) 81.1 (>60) BUN/Creatinine Ratio 20.3 H (8-20) Glucose 133 H (70-100) mg/dL Lactic Acid (0.5-2.0) mmol/L Calcium 9.4 (8.6-10.3) mg/dL Total Bilirubin 0.50 (0.2-1.0) mg/dL AST 17 (13-39) U/L ALT 8 (7-52) U/L Alkaline Phosphatase 61 (34-104) U/L C-Reactive Protein 2.52 (< 5.00) mg/L Total Protein 7.4 (6.4-8.9) g/dL Albumin 4.0 (3.2-5.2) g/dL Globulin 3.4 (2-4) g/dL Albumin/Globulin Ratio 1.2 (1-3) Lipase 31 (11.0-82.0) U/L Urine Color Yellow Urine Appearance Cloudy Urine pH 8.0 (5-9) Ur Specific [place] 1.012 (1.010-1.030) Urine Protein Negative (Negative) Urine Ketones Negative (Negative) Urine Blood Negative (Negative) Urine Nitrate Negative (Negative) Urine Bilirubin Negative (Negative) Urine Urobilinogen Negative (Negative) Ur Leukocyte Esterase Negative (Negative) Urine Glucose Negative (Negative) 11/28/17 Range/Units 19:04 WBC (3.5-10.8) 10^3/ul RBC (4.0-5.4) 10^6/ul Hgb (12.0-16.0) g/dl Hct (35-47) % MCV (80-97) fL MCH (27-31) pg MCHC (31-36) g/dl RDW (10.5-15) % Plt Count (150-450) 10^3/ul MPV (7.4-10.4) um3 Neut % (Auto) (38-83) % Lymph % (Auto) (25-47) % [place] % (Auto) (0-7) % Eos % (Auto) (0-6) % Baso % (Auto) (0-2) % Absolute Neuts (auto) (1.5-7.7) 10^3/ul Absolute Lymphs (auto) (1.0-4.8) 10^3/ul Absolute Monos (auto) (0-0.8) 10^3/ul Absolute Eos (auto) (0-0.6) 10^3/ul Absolute Basos (auto) (0-0.2) 10^3/ul Absolute Nucleated RBC 10^3/ul Nucleated RBC % Sodium (139-145) mmol/L Potassium (3.5-5.0) mmol/L Chloride (101-111) mmol/L Carbon Dioxide (22-32) mmol/L Anion Gap (2-11) mmol/L BUN (6-24) mg/dL Creatinine (0.51-0.95) mg/dL Est GFR ( Amer) (>60) Est GFR (Non-Af Amer) (>60) BUN/Creatinine Ratio (8-20) Glucose (70-100) mg/dL Lactic Acid 0.8 (0.5-2.0) mmol/L Calcium (8.6-10.3) mg/dL Total Bilirubin (0.2-1.0) mg/dL AST (13-39) U/L ALT (7-52) U/L Alkaline Phosphatase (34-104) U/L C-Reactive Protein (< 5.00) mg/L Total Protein (6.4-8.9) g/dL Albumin (3.2-5.2) g/dL Globulin (2-4) g/dL Albumin/Globulin Ratio (1-3) Lipase (11.0-82.0) U/L Urine Color Urine Appearance Urine pH (5-9) Ur Specific [place] (1.010-1.030) Urine Protein (Negative) Urine Ketones (Negative) Urine Blood (Negative) Urine Nitrate (Negative) Urine Bilirubin (Negative) Urine Urobilinogen (Negative) Ur Leukocyte Esterase (Negative) Urine Glucose (Negative) Result Diagrams: 11/28/17 19:04 11/28/17 19:04 Lab Statement: Any lab studies that have been ordered have been reviewed, and results considered in the medical decision making process. Re-Evaluation - Re-Evaluation First Eval Re-Evaluation Time: 21:30 Change: Improved Comment: The patient is feeling better and wants to be discharged home. GIGU Course/Dx - Course Course Of Treatment: Ms. Tucker presented to the emergency department complaining of nausea and vomiting for several days and now feeling very tired. She was clinically dehydrated and was rehydrated with IV normal saline and her nausea treated with IV Compazine. She felt much improved labs were within normal limits and she was discharged. - Diagnoses Provider Diagnoses: Nausea, Vomiting, Dehydration Discharge - Sign-Out/Discharge Documenting (check all that apply): Discharge/Admit/Transfer - Discharge Plan Condition: Stable Disposition: HOME Patient Education Materials: Dehydration (ED), Acute Nausea and Vomiting (ED) Referrals: Elmo Mendez MD [Primary Care Provider] - 3 Days Additional Instructions: Follow up with your primary care provider in 2-3 days. Return to the emergency department for any new or worsening symptoms. - Billing Disposition and Condition Condition: STABLE Disposition: HOME The documentation as recorded by the Tk luciano Natalie accurately reflects the service I personally performed and the decisions made by me, Demar Sweet MD.
[2017-11-28 21:52] VITALS: BP 165/89
== END 2017-11-28 21:51 | disposition home or self-care (01) ==
LOC: ED 17:19
DX: E86.0 Dehydration (principal); R11.2 Nausea with vomiting, unspecified; Z87.891 Personal history of nicotine dependence; Z88.5 Allergy status to narcotic agent; Z88.3 Allergy status to other anti-infective agents; Z88.8 Allergy status to other drugs, medicaments and biological substances
CPT/HCPCS: 36415; 80053; 81003; 83605; 83690; 85025; 86140; 96360; 99283; J0780

== ENCOUNTER 2018-05-07 11:59 | Emergency (ER) | payer MEDICARE, OTHER ==
[2018-05-07] MEDS ORDERED: guaiFENesin ER TAB 600 MG PO ONE (13:11)
[2018-05-07] MEDS ORDERED: Albuterol/Ipratropium NEB.SOL* Albuterol 2.5 MG/Ipratropium 0.5 MG 3 ML INH ONE (13:11)
[2018-05-07] MEDS ORDERED: Acetaminophen TAB* 325 MG PO ONE (13:14)
[2018-05-07] MEDS ORDERED: methylPREDNISolone SOD 40 MG* 1 ML VIAL IV ONE (13:15)
--- NOTE | 2018-05-07 13:35 | ED ---
HPI Cardiac - HPI Summary HPI Summary: Patient here with progressive worsening of cough and shortness of breath over the past few days. She reports she has felt an upper respiratory infection coming on that has moved into her chest. She is having difficulty moving mucus from her chest. Typically takes Mucinex however she ran out. She has emphysema and uses oxygen at home as needed as well as albuterol however she has not been using these recently. Associated symptoms include headache, sinus congestion right greater than left, sneezing. She denies scarlett fevers, chills, chest pain, abdominal pain, nausea, vomiting, diarrhea, rash. She lives alone. Keeps in touch with family who live in [place]. She was following with Dr. Garcia however feels her emphysema is mostly stable unless she gets sick so has been following with her primary care physician to manage this. Has required steroids in the past which helped. Has not received influenza vaccine - will check today. - History of Current Complaint Chief Complaint: EDShortnessOfBreath Stated Complaint: SOB Time Seen by Provider: 05/07/18 12:55 Hx Obtained From: Patient Pain Intensity: 0 - Additional Pertinent History Primary Care Physician: [id number] - Allergy/Home Medications Allergies/Adverse Reactions: Allergies Allergy/AdvReac Type Severity Reaction Status Date / Time codeine Allergy Unknown Verified 05/07/18 12:33 Reaction Details hydralazine Allergy Difficulty Verified 05/07/18 12:33 Breathing Sulfa (Sulfonamide Allergy Unknown Verified 05/07/18 12:33 Antibiotics) Reaction Details PMH/Surg Hx/FS Hx/Imm Hx Previously Healthy: Yes Endocrine/Hematology History: Denies: Hx Anticoagulant Therapy, Hx Blood Disorders Cardiovascular History: Reports: Hx Hypertension - takes atenolol only Denies: Hx Aneurysm Comment Only: Hx Congestive Heart Failure - Elevated BNP Respiratory History: Reports: Hx Chronic Obstructive Pulmonary Disease (COPD) - 2.5L at night and PRN - emphysema per pt, Hx Lung Cancer - 1988 with lobectomy, Other Respiratory Problems/Disorders - HX OF LUNG CA 1988 Denies: Hx Pulmonary Embolism GI History: Reports: Other GI Disorders - colon CA Musculoskeletal History: Reports: Hx Arthritis, Hx Osteoporosis Denies: Hx Rheumatoid Arthritis, Hx Scoliosis Sensory History: Reports: Hx Contacts or Glasses Denies: Hx Hearing Aid, Hx Hearing Problem, Other Sensory Impairments Opthamlomology History: Reports: Hx Contacts or Glasses Denies: Other Sensory Impairments Neurological History: Reports: Other Neuro Impairments/Disorders - SPINAL STENOSIS Denies: Hx Headaches Psychiatric History: Reports: Hx Anxiety - Cancer History Cancer Type, 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 CA, Lung CA, melanoma, basal cell carcinoma - Surgical History Surgery Procedure, Year, and Place: upper L lung lobectomy, colectomy, breast implants, HYSTERECTOMY Infectious Disease History: No Infectious Disease History: Denies: Traveled Outside the [place] in Last 30 Days - Family History Known Family History: Positive: Other - GERD - Social History Occupation: Retired Lives: Alone Alcohol Use: Weekly Alcohol Amount: one beer with dinner Hx Substance Use: No Substance Use Type: Reports: None Hx Tobacco Use: Yes - hasn't smoked in yrs - no 2nd hand smoke exp Smoking Status (MU): Former Smoker Length of Time of Smoking/Using Tobacco: 25+ years Review of Systems Positive: Fatigue. Negative: Fever, Chills Eyes: Negative ENT: Other - sinus/nasal congestion Cardiovascular: Negative Positive: Shortness Of Breath, Cough Gastrointestinal: Negative Positive: no symptoms reported Musculoskeletal: Negative Skin: Negative Positive: Headache. Negative: Weakness, Paresthesia, Numbness, Syncope, Slurred Speech Psychological: Normal All Other Systems Reviewed And Are Negative: Yes Physical Exam Triage Information Reviewed: Yes Vital Signs On Initial Exam: Initial Vitals Temp Pulse Resp BP Pulse Ox 98.3 F 87 20 156/96 98 05/07/18 12:12 05/07/18 12:12 05/07/18 12:12 05/07/18 12:12 05/07/18 12:12 Vital Signs Reviewed: Yes Appearance: Positive: Pain Distress - tachypnea but appears comfortable sitting upright with NC in place, Cachectic Skin: Positive: Warm, Skin Color Reflects Adequate Perfusion, Dry - no rash Head/Face: Positive: Normal Head/Face Inspection Eyes: Positive: Normal, EOMI, Conjunctiva Clear. Negative: Conjunctiva Inflammed, Discharge ENT: Positive: Pharynx normal - mucosa somewhat dry, Nasal congestion, TMs normal, Sinus tenderness - Rt (mild), Uvula midline. Negative: Tonsillar swelling, Tonsillar exudate, Trismus, Muffled voice, Hoarse voice Neck: Positive: Supple, Nontender, No Lymphadenopathy Respiratory/Lung Sounds: Positive: Wheezes - Diffuse Exp wheezing throughout - distant lung sounds. Negative: Rales, Rhonchi Cardiovascular: Positive: S1, S2. Negative: Murmur, Rub, Leg Edema Left, Leg Edema Right Abdomen Description: Positive: Nontender, No Organomegaly, Soft Bowel Sounds: Positive: Present Musculoskeletal: Positive: Normal, Strength/ROM Intact Neurological: Positive: Normal, Sensory/Motor Intact, Alert, Oriented to Person Place, Time, CN Intact II-III Psychiatric: Positive: Normal Diagnostics - Vital Signs Vital Signs Temp Pulse Resp BP Pulse Ox 05/07/18 12:12 98.3 F 87 20 156/96 98 - Laboratory Result Diagrams: 05/07/18 13:43 05/07/18 13:43 Lab Statement: Any lab studies that have been ordered have been reviewed, and results considered in the medical decision making process. Re-Evaluation - Re-Evaluation First Eval Change: Improved - breathing easier, more relaxed s/p O2 placement and duoneb - also received mucinex to loosen mucous and acetaminophen for BHAKTA - improved Disposition - Course Course Of Treatment: Pt presents w/ clincal appearance of COPD exacerbation. Improved w/ steroid, duoneb, mucinex and acetaminophen. CXR w/o acute findings. Flu swab delayed d/t nursing tied up - eventually returned as neg. Saturating well on RA prior to d/c. D/c'd home w/ meds, education on importance of using albuterol and O2 as directed and close f/u w/ PCP. She will return to ED if danger s/sx present. - Diagnoses Provider Diagnoses: COPD exacerbation Discharge - Sign-Out/Discharge Documenting (check all that apply): Patient Departure - Discharge Plan Condition: Stable Disposition: HOME Prescriptions: Albuterol/Ipratropium NEB.FARHAD* [Duoneb (Albuterol 2.5 MG/Ipratropium 0.5 MG)] 1 neb INH Q6H PRN #30 neb.farhad PRN Reason: Wheezing Azithromycin TAB* [Zithromax TAB (Z-OVIDIO) 250 mg #6 tabs] 2 tab PO .TODAY, THEN 1 DAILY #1 ovidio predniSONE TAB* [Deltasone 20 MG TAB*] 40 mg PO DAILY #8 tab Patient Education Materials: Acute Bronchitis (ED) Referrals: Elmo Mendez MD [Primary Care Provider] - Additional Instructions: You appear to have an exacerbation of your emphysema - it is important that you take the medications prescribed today as directed Additionally, you may take mucinex with lots of water and use a humidifier to aid in mucous movement Use duoneb solution in your nebulizer machine as directed - DO NOT USE WITH ALBUTEROL - USE ONE OR THE OTHER Follow-up with your PCP on Thursday for recheck of lungs *If worse in the meantime, return to ED Try the following for relief of symptoms as well: Nasal wash (netti pot or saline spray) & salt water throat gargles 2 x day Drink you body weight in ounces of water every day Sleep 8+ hours per night Avoid Dairy and sugar Hot herbal/decaf tea with lemon & honey Chicken broth (preferably organic, free range chicken) Humidifier in house, but especially near bed at night Keep home temperature at 68F or less to reduce dryness Use cough drops/throat lozenges Try a facial steam and/or Vicks Vapor rub for sinus congestion Avoid smoke, candles, perfumes, colognes, scented soaps/detergents , air fresheners and cleaning chemicals as these can cause airway irritation and trigger coughing Start Vitamin C 1000mg daily Start probiotics in between antibiotics (ie. Yogurt and/or capsules of L. acidophilus, L. bifidus, L. casei, etc) to prevent diarrhea, yeast infection - Billing Disposition and Condition Condition: STABLE Disposition: Home
[2018-05-07 14:04] LABS: ABS Basophils 0 10^3/ul (0-0.2); ABS Eosinophils 0 10^3/ul (0-0.6); ABS Lymphocytes 0.5 10^3/ul (1.0-4.8); ABS Monocytes 0.2 10^3/ul (0-0.8); ABS Nucleated RBC 0 10^3/ul; Eosinophil % 0.3 % (0-6); Hematocrit 40 % (35-47); Hemoglobin 12.8 g/dl (12.0-16.0); Lymphocyte % 5.4 % (25-47); Mean Corpuscular HGB Conc 32 g/dl (31-36); Mean Corpuscular Hemoglobin 30 pg (27-31); Mean Corpuscular Volume 93 fL (80-97); Mean Platelet Volume 8.8 fL (7.4-10.4); Nucleated Red Blood Cells % 0; Platelet Count 270 10^3/ul (150-450); Red Blood Count 4.29 10^6/ul (4.00-5.40); Red Cell Distribution Width 15 % (10.5-15); White Blood Count 8.7 10^3/ul (3.5-10.8)
[2018-05-07 14:17] LABS: EGFR Non-African American 89.8 (>60)
[2018-05-07] MEDS ORDERED: Potassium Chlor TAB* 20 MEQ TAB.ER PO ONE (14:55)
[2018-05-07 17:17] VITALS: BP 0/0
== END 2018-05-07 17:16 | disposition home or self-care (01) ==
LOC: ED 11:59
DX: J44.1 Chronic obstructive pulmonary disease with (acute) exacerbation (principal); Z87.891 Personal history of nicotine dependence; I10 Essential (primary) hypertension; I50.9 Heart failure, unspecified; Z85.118 Personal history of other malignant neoplasm of bronchus and lung; Z88.2 Allergy status to sulfonamides
CPT/HCPCS: 36415; 71046; 80053; 83605; 83735; 85025; 86140; 87040; 93005; 96374; 99284; A9270-GY; J2920

== ENCOUNTER 2019-03-15 23:02 | Inpatient (IN) | payer MEDICARE, OTHER ==
--- OUTSIDE RECORDS SUMMARY | 2019-03-15 23:43 | XMS REPORT | Continuity of Care Document ---
:1930 External Reference #:[id number] Author Name Galina Clayton O.D. Address [address] [place] [address] Care Team Providers Name Role Phone Elmo Mendez M.D. 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 Onset: 11/12/2015 Vitreous degeneration Monik Campbell O.D. Onset: 11/12/2015 Other secondary cataract, bilateral Monik Campbell O.D. Onset: 2015 Presbyopia Monik Campbell O.D. Onset: 11/22/2015 Presence of intraocular lens Monik Campbell O.D. Onset: 11/22/2015 Squamous blepharitis Galina Clayton O.D. Onset: 03/04/2019 Social History Type Date Description Comments Sex Unknown ETOH Use Occasionally consumes alcohol Recreational Drug Use Denies Drug Use Tobacco Use Start: Unknown Patient has never smoked Smoking Status Reviewed: 03/04/19 Patient has never smoked Allergies, Adverse Reactions, Alerts Description No Known Drug Allergies Medications Active Medications SIG Qnty Indications Ordering Provider Date Erythromycin Apply To The 1Tube H01.001 Haresh Szymanski, 05/27/2018 5mg/GM Right Eye AT M.D. Ointment Night For 2 Weeks Warm Compresses every day Monik Nichols 11/21/2015 Noah Campbell Alprazolam Take 1 Tablet By Unknown 0.5mg Tablets Mouth 4 Times A Day as Needed Amlodipine Besylate take 1 tablet by Unknown 10mg mouth once daily Tablets Immunizations Description No Information Available Vital Signs Description No Information Available Results Description No Information Available Procedures Description No Information Available Medical Devices Description No Information Available Encounters Description No Information Available Assessments Date Code Description Provider 03/04/2019 H01.022 Squamous blepharitis right lower eyelid Galina Clayton O.D. Plan of Treatment 03/04/2019 - Galina Clayton O.D.H01.022 Squamous blepharitis right lower eyelidComments:Smoking can increase the risk of developing or worsening any eye related disease, as well as affect your overall health. If you are a smoker, we strongly recommend that you quit.If you are not a smoker, we strongly recommend that you do not start. restart warm compresses twice a day with gentle massageapply ointment to right lower lid twice a dayif your symptoms worsen, please call the office to beseenFollow up:1 month review of symptoms Functional Status Description No Information Available Mental Status Description No Information Available Referrals Description No Information Available
--- NOTE | 2019-03-16 00:01 | ED ---
Shortness of Breath - HPI Summary HPI Summary: Patient presents with progressive shortness of breath and sternal chest pain radiating to bilateral arms 3 days. Chest pain described as intermittent, worse in the evening, worse with sitting up. No active chest pain at this time. Denies fever, cough, sore throat, and/V/D, abdominal pain, change in urine, change in BM. Patient states she has a health aide who does not show up frequently to give her medications or cook food for her. Patient therefore not taking her medications. Patient states decreased by mouth and fluid intake 2 days. Patient on home O2 2.5 L at night. Medical history COPD, GERD, HTN, lung cancer, colon cancer. - History of Current Complaint Chief Complaint: EDShortnessOfBreath Time Seen by Provider: 03/15/19 23:59 Hx Obtained From: Patient Onset/Duration: Gradual Onset, Lasting Days Timing: Constant Current Severity: None Aggravating Factors: Other Alleviating Factors: Oxygen, Spontaneous Resolution Associated Signs & Symptoms: Negative - Allergy/Home Medications Allergies/Adverse Reactions: Allergies Allergy/AdvReac Type Severity Reaction Status Date / Time codeine Allergy Unknown Verified 05/07/18 12:33 Reaction Details hydralazine Allergy Difficulty Verified 05/07/18 12:33 Breathing morphine Allergy Itching Verified 03/16/19 14:08 Sulfa (Sulfonamide Allergy Unknown Verified 05/07/18 12:33 Antibiotics) Reaction Details PMH/Surg Hx/FS Hx/Imm Hx Endocrine/Hematology History: Denies: Hx Anticoagulant Therapy, Hx Blood Disorders Cardiovascular History: Reports: Hx Hypertension - takes atenolol only Denies: Hx Aneurysm Comment Only: Hx Congestive Heart Failure - Elevated BNP Respiratory History: Reports: Hx Chronic Obstructive Pulmonary Disease (COPD) - 2.5L at night and PRN - emphysema per pt, Hx Lung Cancer - 1988 with lobectomy, Other Respiratory Problems/Disorders - HX OF LUNG CA 1988 Denies: Hx Pulmonary Embolism GI History: Reports: Other GI Disorders - colon CA Musculoskeletal History: Reports: Hx Arthritis, Hx Osteoporosis Denies: Hx Rheumatoid Arthritis, Hx Scoliosis Sensory History: Reports: Hx Contacts or Glasses Denies: Hx Hearing Aid, Hx Hearing Problem, Other Sensory Impairments Opthamlomology History: Reports: Hx Contacts or Glasses Denies: Other Sensory Impairments Neurological History: Reports: Other Neuro Impairments/Disorders - SPINAL STENOSIS Denies: Hx Headaches Psychiatric History: Reports: Hx Anxiety - Cancer History Cancer Type, 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 CA, Lung CA, melanoma, basal cell carcinoma - Surgical History Surgery Procedure, Year, and Place: upper L lung lobectomy, colectomy, breast implants, HYSTERECTOMY - Immunization History Immunizations Up to Date: Yes Infectious Disease History: No Infectious Disease History: Denies: Traveled Outside the [place] in Last 30 Days - Family History Known Family History: Positive: Other - GERD - Social History Alcohol Use: Weekly Alcohol Amount: one beer with dinner Hx Substance Use: No Substance Use Type: Reports: None Hx Tobacco Use: Yes - hasn't smoked in yrs - no 2nd hand smoke exp Smoking Status (MU): Former Smoker Length of Time of Smoking/Using Tobacco: 25+ years Review of Systems Constitutional: Negative Eyes: Negative ENT: Negative Positive: Chest Pain Positive: Shortness Of Breath Gastrointestinal: Negative Genitourinary: Negative Musculoskeletal: Negative Skin: Negative Neurological: Negative Psychological: Normal All Other Systems Reviewed And Are Negative: Yes Physical Exam - Summary Physical Exam Summary: Chest pain not reproducible. Neuro exam normal. Patient moves bilateral upper extremities freely without indication of pain. Abdomen soft nontender. No peripheral edema. Triage Information Reviewed: Yes Vital Signs On Initial Exam: Initial Vitals Temp Pulse Resp BP Pulse Ox 98.7 F 106 17 167/108 97 03/15/19 23:12 03/15/19 23:12 03/15/19 23:12 03/15/19 23:12 03/15/19 23:12 Vital Signs Reviewed: Yes Appearance: Positive: Well-Appearing Skin: Positive: Warm Head/Face: Positive: Normal Head/Face Inspection Eyes: Positive: Normal Neck: Positive: Supple Respiratory/Lung Sounds: Positive: Clear to Auscultation Cardiovascular: Positive: Normal Abdomen Description: Positive: Nontender Musculoskeletal: Positive: Normal Neurological: Positive: Normal Psychiatric: Positive: Normal AVPU Assessment: Alert - Farrell Coma Scale Best Eye Response: 4 - Spontaneous Best Motor Response: 6 - Obeys Commands Best Verbal Response: 5 - Oriented Coma Scale Total: 15 Diagnostics - Vital Signs Vital Signs Temp Pulse Resp BP Pulse Ox 03/15/19 23:12 98.7 F 106 17 167/108 97 - Laboratory Result Diagrams: 03/16/19 06:20 03/16/19 06:20 Lab Statement: Any lab studies that have been ordered have been reviewed, and results considered in the medical decision making process. Course/Dx - Course Course Of Treatment: Patient presents with progressive shortness of breath and sternal chest pain radiating to bilateral arms 3 days. Chest pain described as intermittent, worse in the evening, worse with sitting up. No active chest pain at this time. Denies fever, cough, sore throat, and/V/D, abdominal pain, change in urine, change in BM. Patient states she has a health aide who does not show up frequently to give her medications or cook food for her. Patient therefore not taking her medications. Patient states decreased by mouth and fluid intake 2 days. Patient on home O2 2.5 L at night. Medical history COPD, GERD, HTN, lung cancer, colon cancer. Patient mild tachycardic, tachypneic on 2.5L O2. Patient normally on 2.5 L at night only. Initial troponin 2.65. Second troponin 3.29. Labs otherwise unremarkable. CTA chest to for acute process. EKG sinus rhythm, consistent with prior. Admitted to hospitalist for shortness of breath and and STEMI. - Diagnoses Provider Diagnoses: NSTEMI (non-ST elevated myocardial infarction), SOB (shortness of breath) Discharge ED - Sign-Out/Discharge Documenting (check all that apply): Patient Departure Patient Received Moderate/Deep Sedation with Procedure: No - Discharge Plan Condition: Stable Disposition: ADMITTED TO [facility] - Billing Disposition and Condition Condition: STABLE Disposition: Admitted to [facility] - Attestation Statements Provider Attestation: pt seen by midlevel provider independently, based on their assessment, it was not necessary to present the case to me but I was available for consultation. I did not form a physician-patient relationship with the patient. The chart however, has been reviewed. am signing this note strictly in an administrative capacity.
[2019-03-16] MEDS ORDERED: Albuterol/Ipratropium NEB.SOL* Albuterol 2.5 MG/Ipratropium 0.5 MG 3 ML INH ONE (00:21)
[2019-03-16 00:27] LABS: ABS Eosinophils 0.1 10^3/ul (0-0.6); ABS Lymphocytes 1.5 10^3/ul (1.0-4.8); ABS Neutrophils 6.9 10^3/ul (1.5-7.7); Eosinophil % 0.7 %; Hematocrit 41 % (35-47); Hemoglobin 13.4 g/dL (12.0-16.0); Lymphocyte % 15.6 %; Mean Corpuscular HGB Conc 33 g/dL (31-36); Mean Corpuscular Hemoglobin 31 pg (27-31); Mean Corpuscular Volume 92 fL (80-97); Mean Platelet Volume 9.2 fL (7.4-10.4); Platelet Count 230 10^3/uL (150-450); Red Blood Count 4.38 10^6 /uL (3.70-4.87); Red Cell Distribution Width 14 % (10-15); White Blood Count 9.5 10^3/uL (3.5-10.8)
[2019-03-16 00:33] LABS: INR 0.99 (0.82-1.09)
[2019-03-16] MEDS ORDERED: Labetalol IV* 5 MG/ML 20 ML VIAL IV PUSH ONE (00:33)
[2019-03-16] MEDS ORDERED: amLODIPine TAB* 5 MG PO ONE (00:33)
[2019-03-16 00:46] LABS: Albumin/Globulin Ratio 1.2 (1-3); BUN/Creatinine Ratio 30.4 (8-20); C Reactive Protein 7.18 mg/L (<8.01); Calcium 9.7 mg/dL (8.6-10.3); EGFR African American 97.6 (>60); EGFR Non-African American 80.7 (>60); Globulin 3.4 g/dL (2-4); Magnesium 2.1 mg/dL (1.9-2.7); Total Bilirubin 0.4 mg/dL (0.2-1.0); Total Protein 7.4 g/dL (6.4-8.9)
[2019-03-16 01:00] LABS: TSH (Thyroid Stimulating Horm) 1.41 mcIU/mL (0.34-5.60)
[2019-03-16] MEDS ORDERED: Iohexol 350* (CONTRAST) 500 ML MDV IV ONE (01:01)
[2019-03-16 01:07] LABS: Troponin I 2.65 ng/mL (<0.04)
[2019-03-16] MEDS ORDERED: Aspirin 81 mg CHEW TAB* 81 MG TAB.CHEW PO ONE (01:12)
[2019-03-16] MEDS ORDERED: Clopidogrel TAB* 300 MG PO ONE (01:36)
[2019-03-16] MEDS ORDERED: Nitro 2% OINT* (Nitroglycerin) 1 INCH/PAK PAK TOPICAL ONE (01:37)
[2019-03-16] MEDS ORDERED: Heparin DRIP 25,000 UNITS(*) 25,000 UNITS/500 ML BAG IV SCH (01:45)
[2019-03-16 01:47] LABS: Urine Appearance Clear; Urine Bacteria Absent (Absent); Urine Bilirubin Negative (Negative); Urine Blood Negative (Negative); Urine Color Yellow; Urine Glucose Negative (Negative); Urine Ketones Trace (Negative); Urine Nitrite Negative (Negative); Urine Protein Negative (Negative); Urine Red Blood Cell 2+(6-10/hpf) (Absent); Urine Specific Gravity 1.013 (1.010-1.030); Urine Urobilinogen Negative (Negative); Urine White Blood Cell Trace(0-5/hpf) (Absent)
[2019-03-16] MEDS ORDERED: Enoxaparin(*) 60 MG/0.6 ML SYR SUBCUT ONE (01:53)
[2019-03-16] MEDS ORDERED: Heparin VIAL(*) 5000 UNITS/ML VIAL (FIVE THOUSAND) IV PRN (01:54)
[2019-03-16] MEDS ORDERED: Artificial Tears* 15 ML BTL BOTH EYES PRN (03:42)
[2019-03-16] MEDS ORDERED: Albuterol/Ipratropium NEB.SOL* Albuterol 2.5 MG/Ipratropium 0.5 MG 3 ML INH PRN (03:42)
[2019-03-16 04:02] LABS: Troponin I 3.29 ng/mL (<0.04)
[2019-03-16] MEDS: Morphine INJ* 2 MG/ML 1 ML SYRINGE (TWO MG - NEW SYRINGE VERSION) IV PRN ×2 (06:17→13:52)
--- NOTE | 2019-03-16 06:28 | HP ---
CC: Dr. Elmo Mendez * ADMISSION HISTORY AND PHYSICAL: DATE OF ADMISSION: 03/15/19 PRIMARY CARE PHYSICIAN: Dr. Mendez. CHIEF COMPLAINT: Chest pain. HISTORY OF PRESENT ILLNESS: This is an 88-year-old female with past medical history of COPD on 2.5 L nasal cannula at night and p.r.n.; history of lung cancer, status post right upper lobectomy; history of colon cancer, status post colectomy; hypertension, came in due to chest pain and anxiety. The patient stated that she was in her usual state of health; however, for the last 4 days, she has had decreased p.o. intake as her aide has not showed up to work and she has chronic fatigue syndrome and has not been able to make something to eat for herself. Her fatigue worsened and today she was having severe chest pain and she felt like she was having burps from not eating and some dyspepsia from not eating. The chest pain was localized with substernal area and radiating to both arms accompanied by some shortness of breath and feeling very tired more than her usual chronic fatigue. She also had some cough earlier, which was nonproductive and stated that her symptoms resolved before she even received the nitroglycerin. She, however, did have elevated troponin, so is being admitted for NSTEMI. The patient denies any other sick contacts, any fever, chills, any nausea, vomiting, any urinary burning sensation. PAST MEDICAL HISTORY: As mentioned: 1. COPD, on 2.5 L nasal cannula at night and p.r.n. 2. Lung cancer status post right upper lobectomy. 3. Colon cancer status post colectomy. 4. History of hypertension. 5. 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 6. History of melanoma excision from her arm. PAST SURGICAL HISTORY: As mentioned: 1. Lobectomy. 2. Colectomy. 3. Hysterectomy. 4. Melanoma excision. 5. Basal cell sarcoma excision. HOME MEDICATIONS: The patient is on: 1. Xanax 0.5 mg p.o. b.i.d. 2. Mag-Ox 400 mg p.o. daily. 3. Budesonide 2 puffs by inhalation b.i.d. 4. Artificial tears 1 drop both eyes q.2 hours p.r.n. 5. DuoNeb q.6 hours p.r.n. 6. Ventolin HFA 2 puffs by inhalation q.4 hours p.r.n. 7. Albuterol 2.5 mg inhalation t.i.d. p.r.n. 8. Prednisone, even though it is documented, the patient states that she is not taking it. 9. Amlodipine 2.5 mg oral daily. 10. Metoprolol 25 mg oral daily. ALLERGIES: The patient has multiple allergies documented including CODEINE, HYDRALAZINE, and SULFA ANTIBIOTICS. FAMILY HISTORY: Mother at age 98 from old age. Father at age 88 from coronary artery disease. SOCIAL HISTORY: The patient quit smoking 50 years ago. Denies any alcohol or drug use. She is , lives alone, has a daughter in [facility], who is her healthcare proxy. 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 REVIEW OF SYSTEMS: A 14-point review of systems did not reveal any new information other than what is mentioned in the HPI. PHYSICAL EXAMINATION GENERAL: In the ER, the patient is awake, alert, oriented x3, did not appear to be in any acute respiratory distress. VITAL SIGNS: In the ER, BP was noted to be 161/86, heart rate 94, respiration rate 21, saturating 98% on 2.5 L nasal cannula, temperature at 98.7 in the ER. HEAD AND NECK: Atraumatic, normocephalic. Bilateral pupils are reactive. Oral mucosa was moist. Neck: Supple. No jugular venous distention. LUNGS: Clear to auscultation bilaterally. No wheezing, rhonchi, or rales. HEART: S1, S2. Regular rate and rhythm. ABDOMEN: Soft, nontender, nondistended. EXTREMITIES: No cyanosis, clubbing, or edema. DIAGNOSTIC STUDIES/LAB DATA: CBC was unremarkable. Coagulation profile unremarkable. Blood gas showed hypercapnia with pCO2 of 57, pH of 7.38. Comprehensive metabolic panel was unremarkable with the exception of elevated troponin at 2.65 and B-stella was elevated at 225. Urinalysis was trace leuk esterase positive, negative for nitrite and ketone positive consistent with her not eating for few days. EKG showed sinus rhythm at 95 beats per minute, when compared to her old EKG from 2018, there is no ST elevation. The T waves today look a bit more prominent and there is some T-wave inversion noted on the inferior leads, which were not present in the previous EKG and possible ST depression in the V2. CTA of the chest was negative for any pulmonary embolism and stable right thyroid nodule and moderate aortic atherosclerotic calcification. IMPRESSION: This is an 88-year-old female here due to chest pain and shortness of breath likely secondary to NSTEMI with elevated troponin. ASSESSMENT AND PLAN: 1. Chest pain secondary to NSTEMI. We will start the patient on ACS protocol with Lovenox, aspirin, and Plavix along with metoprolol and amlodipine for blood pressure control and atorvastatin. We will also get A1c and lipid panel in the morning. Cardiology was already consulted according to the ER staff who will evaluate the patient in the morning and agrees with current management. 2. History of chronic obstructive pulmonary disease, stable. Restart home meds. 3. History of hyponatremia. Restart home medication. 4. DVT prophylaxis. The patient is already on Lovenox. 5. Code status. The patient is DNR/DNI, which was documented in a previous MOLST form, which was scanned into the chart and the patient's daughter from [place], [place] is her healthcare proxy, her daughter's name is Vldaimir. [id number]/CPS #: [id number]
[2019-03-16 06:59] LABS: ABS Eosinophils 0.1 10^3/ul (0-0.6); ABS Lymphocytes 2.1 10^3/ul (1.0-4.8); ABS Monocytes 1.1 10^3/ul (0-0.8); ABS Neutrophils 5.4 10^3/ul (1.5-7.7); Eosinophil % 1.5 %; Hematocrit 38 % (35-47); Hemoglobin 12.5 g/dL (12.0-16.0); Lymphocyte % 23.5 %; Mean Corpuscular HGB Conc 33 g/dL (31-36); Mean Corpuscular Hemoglobin 31 pg (27-31); Mean Corpuscular Volume 93 fL (80-97); Mean Platelet Volume 9.9 fL (7.4-10.4); Platelet Count 215 10^3/uL (150-450); Red Blood Count 4.07 10^6 /uL (3.70-4.87); Red Cell Distribution Width 14 % (10-15); White Blood Count 8.7 10^3/uL (3.5-10.8)
[2019-03-16 07:14] LABS: Albumin 3.6 g/dL (3.2-5.2); Albumin/Globulin Ratio 1.2 (1-3); BUN/Creatinine Ratio 32.8 (8-20); Calcium 9.2 mg/dL (8.6-10.3); EGFR African American 112.5 (>60); Globulin 2.9 g/dL (2-4); Indirect Bilirubin 0.3 mg/dL (0.3-1.0); Potassium 3.6 mmol/L (3.5-5.0); Total Bilirubin 0.4 mg/dL (0.2-1.0); Total Protein 6.5 g/dL (6.4-8.9)
[2019-03-16] MEDS: diPHENhydraMINE PO* 25 MG PO ONE ×2 (07:23→13:57)
[2019-03-16 07:48] LABS: Troponin I 3.28 ng/mL (<0.04)
[2019-03-16] MEDS ORDERED: Aspirin EC TAB* 325 MG PO SCH (09:00)
[2019-03-16] MEDS ORDERED: amLODIPine TAB* 5 MG PO SCH (09:00)
[2019-03-16] MEDS: Metoprolol Succinate XL TAB* 25 MG PO SCH (09:31)
[2019-03-16] MEDS: Clopidogrel TAB* 75 MG PO SCH (09:32)
[2019-03-16] MEDS: Magnesium Oxide TAB* 400 MG PO SCH (09:32)
[2019-03-16] MEDS: ALPRAZolam TAB* 0.5 MG PO SCH ×2 (09:33→21:27)
[2019-03-16] MEDS: Mometasone/Formoter 200/5 MDI INH SCH ×2 (09:38→19:56)
[2019-03-16] MEDS ORDERED: Aspirin EC TAB* 325 MG ONE (10:05)
[2019-03-16] MEDS: Aspirin EC TAB* 325 MG PO SCH (10:07)
[2019-03-16 10:53] LABS: Troponin I 3.54 ng/mL (<0.04)
--- NOTE | 2019-03-16 11:05 | CONS ---
CONSULTATION REPORT: DATE OF CONSULT: 03/16/19 ATTENDING PHYSICIAN: Dr. Odalis Bustillo.* (DICTATED BY JOSE TOM NP) REASON FOR CONSULT: NSTEMI. PRIMARY PHYSICIAN: Dr. Mendez. PRIMARY LUMBER PULLER: Dr. Garcia. CHIEF COMPLAINT: Chest pain, increased oxygen requirements, increased shortness of breath, sputum production, weakness. HISTORY OF PRESENT ILLNESS: This is an 88-year-old female patient with a notable history of COPD; on oxygen therapy, lung cancer, melanoma, hypertension , colon cancer with prior history of troponinemia in the setting of COPD exacerbation in 2016. She presented to [facility] on 03/16/19 due to ongoing complaints of chest pain, shortness of breath with increased oxygen requirement, generalized fatigue, and increased sputum production. She states that she has been in her usual state of health, although she is fearful that she might be becoming ill from black mold in her home. Apparently, she has an aide that helps her; however, she states that she is young and has not been showing up to work. As a result, the patient has not been eating adequately. She states approximately 4 days ago, around 4 p.m. in the evening, she developed substernal burning chest pain radiating to her arms. She states the pain was intense and severe, and it was constant and ongoing until 2 o'clock in the morning. Thus, this episode was 10 hours in duration. She adds that the episode was worse with breathing and she did start to require increased oxygen. She also adds that she thinks she has recently had a cold because she has been having new sputum production described as yellow with congestion and headache. Apparently, since the onset of chest pain 4 days ago, it has been intermittent and worse in the evening hours. She adds that exacerbating factors include her anxiety, which provokes her breathing effort, which causes the pain to become more intense. She denies syncope, but does report lightheadedness. Denies palpitations. Denies edema. Apparently, she typically uses 2 L of nasal cannula oxygen at night. However, she has been requiring 2.5 during daytime hours than nighttime hours. At this current time, she denies chest pain. She states the last episode of chest pain was early this morning and was very brief in duration. She states she is compliant with medications. Otherwise, she offers no other complaints at this time. 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 Last echocardiogram according to our medical records was 04/24/16. This test was ordered due to troponinemia in the setting of COPD exacerbation. Per report ; LVEF greater than 65% with abnormal left ventricular diastolic filling. The absence of left atrial enlargement suggests this finding is not chronic and may not have clinical significance. There was trace tricuspid insufficiency. No dilatation of the aortic root. Last ischemic evaluation: None. PAST MEDICAL HISTORY: 1. COPD requiring oxygen. 2. Lung cancer. 3. Melanoma. 4. Hypertension. 5. Colon cancer. 6. Anxiety. PAST SURGICAL HISTORY: Includes: 1. Esophageal dilatation. 2. Right upper lobectomy. 3. Colectomy. 4. Excision of basal cell carcinoma above left eye. HOME MEDICATIONS: Per admission med rec. ALLERGIES: Listed include CODEINE, HYDRALAZINE, SULFA - reactions unknown. FAMILY HISTORY: Mother at the age of 98 due to old age. Father at the age 88 due to coronary artery disease. SOCIAL HISTORY: The patient is a DNR. She lives at home alone. Does on occasions have assistance with an aide. Denies alcohol use and drug use. Former tobacco user, quit 50 years ago. . Her daughter, Vladimir, lives in [place] and is her healthcare proxy. REVIEW OF SYSTEMS: All systems have been reviewed and are otherwise negative, except as above mentioned in the HPI. PHYSICAL EXAMINATION: Temperature 97, pulse 93, respirations 20, oxygen 99% on 2.5 L nasal cannula, blood pressure 130/80. General: The patient is sitting up in bed, eating breakfast, appears in no apparent distress. HEENT: Head is atraumatic and normocephalic. Oral mucosa is moist. Tongue is midline. Neck: Supple. Trachea midline. No JVD. No carotid bruits. Cardiac: Diminished S1 , S2. Regular rate and rhythm. No murmur, rub, or gallop noted. Lungs: Auscultated posteriorly and anteriorly, severely diminished throughout. /GI: Abdomen is soft, nontender, nondistended. Normoactive bowel sounds x4. Extremities: No pedal edema, no clubbing, no cyanosis. Skin: Ecchymosis noted in bilateral upper extremities. Otherwise, no rashes, lesions, or erosions noted. DIAGNOSTIC STUDIES/LAB DATA: Blood work obtained on 03/16/19: Sodium 138, potassium 3.6, chloride 100, carbon dioxide 33, creatinine 0.61, hemoglobin A1c 5.7. Troponin #1 of 2.65, troponin #2 of 3.29, troponin #3 of 3.28. BNP 255. INR 0.99. White count 8.7, hemoglobin 12.5, hematocrit 38, platelets 215. ECG from 03/16/19: Sinus rhythm, rate 93. The patient has new T-wave inversion noted in leads II, III, and aVF. Prior ECG reveals minor ST depression noted in the lateral leads in addition to new T-wave inversion noted in II, III, and aVF. Echocardiogram: Pending. ASSESSMENT AND PLAN: 1. [id number] myocardial infarction; possibly related to chronic obstructive pulmonary disease exacerbation in the past. She had troponinemia that peaked at 1 in 2016 in the setting of chronic obstructive pulmonary disease exacerbation. At that time, LVEF was hyperdynamic. She states that she had a severe episode of chest pain that lasted 10 hours in duration 4 days ago and has been intermittent since then, worse with breathing. Troponin peaked at 3.29. She is on aspirin 325 mg a day, Lipitor 80 at bedtime, metoprolol, Plavix, and Lovenox therapy. At this time, I recommend reducing aspirin to 81 mg a day, continuing metoprolol and Lipitor therapy. I discussed the role of eventual nuclear stress test in the setting of [id number] myocardial infarction with possible chronic obstructive pulmonary disease exacerbation. I also reviewed that if it was abnormal, the next step would be a cardiac catheterization. She states that she is not interested in any invasive procedures and would like to opt for conservative medical management. She is aware of the risks of sudden by pursuing medical management and would like to proceed with conservative management. Thus, we will reduce aspirin to 81 mg a day, continue Plavix 75 mg a day, continue metoprolol and Lipitor therapy. We will update an additional troponin if it continues to trend down. Recommend discontinuing Lovenox therapy if Troponin is trending down. Echocardiogram is pending. Currently, chest pain free. 2. Possible chronic obstructive pulmonary disease exacerbation. The patient reports increased oxygen requirement, sputum production, and sinus congestion. We will defer to the primary team. The patient was inquiring about seeing Dr. Garcia. Apparently, she has not seen her in 2 years and was concerned that perhaps her home oxygen setting needs to be changed. Lung sounds are severely diminished at this time and she is tachypneic. 3. History of hypertension. Current blood pressure is 130/80. Continue current medical management. 4. Disposition. Pending course. Dr. Odalis Bustillo has personally seen and examined the patient and agrees with the above assessment and plan. Thank you for this kind consultation. For any future questions or concerns, please do not hesitate to contact our practice. The patient is DNR. I offered to speak to her daughter, Vladimir; however, the patient desired that I did not. She is alert and oriented x3 and is able to make her own medical decisions at this time. JOSE TOM NP [id number]/CPS #: [id number]
[2019-03-16] MEDS ORDERED: Potassium Chlor TAB* 20 MEQ TAB.ER PO ONE (11:26)
[2019-03-16] MEDS ORDERED: Enoxaparin(*) 60 MG/0.6 ML SYR SUBCUT SCH (12:00)
[2019-03-16 12:50] LABS: HDL Cholesterol 46.4 mg/dL
[2019-03-16] MEDS ORDERED: Albuterol 2.5 MG/3 ML NEB.SOL* (0.083%) INH PRN (12:59)
[2019-03-16] MEDS: Albuterol/Ipratropium NEB.SOL* Albuterol 2.5 MG/Ipratropium 0.5 MG 3 ML INH SCH ×4 (14:41→23:22)
--- NOTE | 2019-03-16 14:48 | CONSULT ---
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 PMH- HTN, h/ o lung ca R upper lobectomy, h/o of colon ca s/p colectomy and fatigue. 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 Studies ekg-nsr, CTA-no PE, mod severe emphysema & R thyroid nodule, H/H 12.5/38, BUN/Cr 20/.61, egfr 93, troponin 3.43, alb 3.6, INR .99 and nasal swab +MRSA. Pt is admitted with NSTEMI declining cardiac cath. Last seen 05/07/18 ER visit for SOB. All history is from the pt and medical records Lab Values: Abnormal Lab Results 03/16/19 03/16/19 03/16/19 00:21 00:21 00:21 WBC 9.5 RBC 4.38 Hgb 13.4 Hct 41 MCV 92 MCH 31 MCHC 33 RDW 14 Plt Count 230 MPV 9.2 Neut % (Auto) 73.0 Lymph % (Auto) 15.6 [place] % (Auto) 10.3 Eos % (Auto) 0.7 Baso % (Auto) 0.4 Absolute Neuts (auto) 6.9 Absolute Lymphs (auto) 1.5 Absolute Monos (auto) 1.0 H Absolute Eos (auto) 0.1 Absolute Basos (auto) 0.0 Absolute Nucleated RBC 0.0 Nucleated RBC % 0.0 INR (Anticoag Therapy) 0.99 APTT ABG pH ABG pCO2 ABG pO2 ABG HCO3 ABG O2 Saturation ABG Base Excess Sodium 138 Potassium 4.0 Chloride 98 L Carbon Dioxide 35 H Anion Gap 5 BUN 21 Creatinine 0.69 Est GFR ( Amer) 97.6 Est GFR (Non-Af Amer) 80.7 BUN/Creatinine Ratio 30.4 H Glucose 101 H Hemoglobin A1c Calcium 9.7 Magnesium 2.1 Total Bilirubin 0.40 Direct Bilirubin Indirect Bilirubin AST 47 H ALT 21 Alkaline Phosphatase 56 Troponin I C-Reactive Protein 7.18 B-Natriuretic Peptide Total Protein 7.4 Albumin 4.0 Globulin 3.4 Albumin/Globulin Ratio 1.2 Triglycerides Cholesterol LDL Cholesterol HDL Cholesterol TSH 1.41 Urine Color Urine Appearance Urine pH Ur Specific [place] Urine Protein Urine Ketones Urine Blood Urine Nitrate Urine Bilirubin Urine Urobilinogen Ur Leukocyte Esterase Urine WBC (Auto) Urine RBC (Auto) Urine Bacteria Urine Glucose Urine Ascorbic Acid 03/16/19 03/16/19 03/16/19 00:21 00:21 01:15 WBC RBC Hgb Hct MCV MCH MCHC RDW Plt Count MPV Neut % (Auto) Lymph % (Auto) [place] % (Auto) Eos % (Auto) Baso % (Auto) Absolute Neuts (auto) Absolute Lymphs (auto) Absolute Monos (auto) Absolute Eos (auto) Absolute Basos (auto) Absolute Nucleated RBC Nucleated RBC % INR (Anticoag Therapy) APTT ABG pH 7.38 ABG pCO2 57 H ABG pO2 82 ABG HCO3 30.2 ABG O2 Saturation 98.5 H ABG Base Excess 6.8 H Sodium Potassium Chloride Carbon Dioxide Anion Gap BUN Creatinine Est GFR ( Amer) Est GFR (Non-Af Amer) BUN/Creatinine Ratio Glucose Hemoglobin A1c Calcium Magnesium Total Bilirubin Direct Bilirubin Indirect Bilirubin AST ALT Alkaline Phosphatase Troponin I 2.65 H* C-Reactive Protein B-Natriuretic Peptide 225 H Total Protein Albumin Globulin Albumin/Globulin Ratio Triglycerides Cholesterol LDL Cholesterol HDL Cholesterol TSH Urine Color Urine Appearance Urine pH Ur Specific [place] Urine Protein Urine Ketones Urine Blood Urine Nitrate Urine Bilirubin Urine Urobilinogen Ur Leukocyte Esterase Urine WBC (Auto) Urine RBC (Auto) Urine Bacteria Urine Glucose Urine Ascorbic Acid 03/16/19 03/16/19 03/16/19 01:25 03:18 03:18 WBC RBC Hgb Hct MCV MCH MCHC RDW Plt Count MPV Neut % (Auto) Lymph % (Auto) [place] % (Auto) Eos % (Auto) Baso % (Auto) Absolute Neuts (auto) Absolute Lymphs (auto) Absolute Monos (auto) Absolute Eos (auto) Absolute Basos (auto) Absolute Nucleated RBC Nucleated RBC % INR (Anticoag Therapy) APTT 38.2 H ABG pH ABG pCO2 ABG pO2 ABG HCO3 ABG O2 Saturation ABG Base Excess Sodium Potassium Chloride Carbon Dioxide Anion Gap BUN Creatinine Est GFR ( Amer) Est GFR (Non-Af Amer) BUN/Creatinine Ratio Glucose Hemoglobin A1c Calcium Magnesium Total Bilirubin Direct Bilirubin Indirect Bilirubin AST ALT Alkaline Phosphatase Troponin I 3.29 H* C-Reactive Protein B-Natriuretic Peptide Total Protein Albumin Globulin Albumin/Globulin Ratio Triglycerides Cholesterol LDL Cholesterol HDL Cholesterol TSH Urine Color Yellow Urine Appearance Clear Urine pH 6.0 Ur Specific [place] 1.013 Urine Protein Negative Urine Ketones Trace A Urine Blood Negative Urine Nitrate Negative Urine Bilirubin Negative Urine Urobilinogen Negative Ur Leukocyte Esterase Trace A Urine WBC (Auto) Trace(0-5/hpf) Urine RBC (Auto) 2+(6-10/hpf) A Urine Bacteria Absent Urine Glucose Negative Urine Ascorbic Acid * A 03/16/19 03/16/19 03/16/19 06:20 06:20 06:20 WBC 8.7 RBC 4.07 Hgb 12.5 Hct 38 MCV 93 MCH 31 MCHC 33 RDW 14 Plt Count 215 MPV 9.9 Neut % (Auto) 61.8 Lymph % (Auto) 23.5 [place] % (Auto) 12.7 Eos % (Auto) 1.5 Baso % (Auto) 0.5 Absolute Neuts (auto) 5.4 Absolute Lymphs (auto) 2.1 Absolute Monos (auto) 1.1 H Absolute Eos (auto) 0.1 Absolute Basos (auto) 0.0 Absolute Nucleated RBC 0.0 Nucleated RBC % 0.0 INR (Anticoag Therapy) APTT ABG pH ABG pCO2 ABG pO2 ABG HCO3 ABG O2 Saturation ABG Base Excess Sodium Potassium Chloride Carbon Dioxide Anion Gap BUN Creatinine Est GFR ( Amer) Est GFR (Non-Af Amer) BUN/Creatinine Ratio Glucose Hemoglobin A1c 5.7 H Calcium Magnesium Total Bilirubin Direct Bilirubin Indirect Bilirubin AST ALT Alkaline Phosphatase Troponin I 3.28 H* C-Reactive Protein B-Natriuretic Peptide Total Protein Albumin Globulin Albumin/Globulin Ratio Triglycerides Cholesterol LDL Cholesterol HDL Cholesterol TSH Urine Color Urine Appearance Urine pH Ur Specific [place] Urine Protein Urine Ketones Urine Blood Urine Nitrate Urine Bilirubin Urine Urobilinogen Ur Leukocyte Esterase Urine WBC (Auto) Urine RBC (Auto) Urine Bacteria Urine Glucose Urine Ascorbic Acid 03/16/19 03/16/19 03/16/19 06:20 09:45 12:08 WBC RBC Hgb Hct MCV MCH MCHC RDW Plt Count MPV Neut % (Auto) Lymph % (Auto) [place] % (Auto) Eos % (Auto) Baso % (Auto) Absolute Neuts (auto) Absolute Lymphs (auto) Absolute Monos (auto) Absolute Eos (auto) Absolute Basos (auto) Absolute Nucleated RBC Nucleated RBC % INR (Anticoag Therapy) APTT ABG pH ABG pCO2 ABG pO2 ABG HCO3 ABG O2 Saturation ABG Base Excess Sodium 138 Potassium 3.6 Chloride 100 L Carbon Dioxide 33 H Anion Gap 5 BUN 20 Creatinine 0.61 Est GFR ( Amer) 112.5 Est GFR (Non-Af Amer) 93.0 BUN/Creatinine Ratio 32.8 H Glucose 92 Hemoglobin A1c Calcium 9.2 Magnesium Total Bilirubin 0.40 Direct Bilirubin 0.10 Indirect Bilirubin 0.3 AST 37 ALT 18 Alkaline Phosphatase 49 Troponin I 3.54 H* C-Reactive Protein B-Natriuretic Peptide Total Protein 6.5 Albumin 3.6 Globulin 2.9 Albumin/Globulin Ratio 1.2 Triglycerides 71 Cholesterol 135 LDL Cholesterol 74 HDL Cholesterol 46.4 TSH Urine Color Urine Appearance Urine pH Ur Specific [place] Urine Protein Urine Ketones Urine Blood Urine Nitrate Urine Bilirubin Urine Urobilinogen Ur Leukocyte Esterase Urine WBC (Auto) Urine RBC (Auto) Urine Bacteria Urine Glucose Urine Ascorbic Acid Laboratory Last Values WBC 8.7 10^3/uL (3.5-10.8) 03/16/19 06:20 RBC 4.07 10^6 /uL (3.70-4.87) 03/16/19 06:20 Hgb 12.5 g/dL (12.0-16.0) 03/16/19 06:20 Hct 38 % (35-47) 03/16/19 06:20 MCV 93 fL (80-97) 03/16/19 06:20 MCH 31 pg (27-31) 03/16/19 06:20 MCHC 33 g/dL (31-36) 03/16/19 06:20 RDW 14 % (10-15) 03/16/19 06:20 Plt Count 215 10^3/uL (150-450) 03/16/19 06:20 MPV 9.9 fL (7.4-10.4) 03/16/19 06:20 Neut % (Auto) 61.8 % 03/16/19 06:20 Lymph % (Auto) 23.5 % 03/16/19 06:20 [place] % (Auto) 12.7 % 03/16/19 06:20 Eos % (Auto) 1.5 % 03/16/19 06:20 Baso % (Auto) 0.5 % 03/16/19 06:20 Absolute Neuts (auto) 5.4 10^3/ul (1.5-7.7) 03/16/19 06:20 Absolute Lymphs (auto) 2.1 10^3/ul (1.0-4.8) 03/16/19 06:20 Absolute Monos (auto) 1.1 10^3/ul (0-0.8) H 03/16/19 06:20 Absolute Eos (auto) 0.1 10^3/ul (0-0.6) 03/16/19 06:20 Absolute Basos (auto) 0.0 10^3/ul (0-0.2) 03/16/19 06:20 Absolute Nucleated RBC 0.0 10^3/ul 03/16/19 06:20 Nucleated RBC % 0.0 03/16/19 06:20 INR (Anticoag Therapy) 0.99 (0.82-1.09) 03/16/19 00:21 APTT 38.2 seconds (26.0-38.0) H 03/16/19 03:18 ABG pH 7.38 (7.35-7.45) 03/16/19 01:15 ABG pCO2 57 mmHg (35-45) H 03/16/19 01:15 ABG pO2 82 mmHg (80-100) 03/16/19 01:15 ABG HCO3 30.2 mmol/L (19-31) 03/16/19 01:15 ABG O2 Saturation 98.5 % (94.0-98.0) H 03/16/19 01:15 ABG Base Excess 6.8 mmol/L (-2.0-2.0) H 03/16/19 01:15 Sodium 138 mmol/L (135-145) 03/16/19 06:20 Potassium 3.6 mmol/L (3.5-5.0) 03/16/19 06:20 Chloride 100 mmol/L (101-111) L 03/16/19 06:20 Carbon Dioxide 33 mmol/L (22-32) H 03/16/19 06:20 Anion Gap 5 mmol/L (2-11) 03/16/19 06:20 BUN 20 mg/dL (6-24) 03/16/19 06:20 Creatinine 0.61 mg/dL (0.51-0.95) 03/16/19 06:20 Est GFR ( Amer) 112.5 (>60) 03/16/19 06:20 Est GFR (Non-Af Amer) 93.0 (>60) 03/16/19 06:20 BUN/Creatinine Ratio 32.8 (8-20) H 03/16/19 06:20 Glucose 92 mg/dL (70-100) 03/16/19 06:20 Hemoglobin A1c 5.7 % (4.0-5.6) H 03/16/19 06:20 Calcium 9.2 mg/dL (8.6-10.3) 03/16/19 06:20 Magnesium 2.1 mg/dL (1.9-2.7) 03/16/19 00:21 Total Bilirubin 0.40 mg/dL (0.2-1.0) 03/16/19 06:20 Direct Bilirubin 0.10 mg/dL (0.03-0.18) 03/16/19 06:20 Indirect Bilirubin 0.3 mg/dL (0.3-1.0) 03/16/19 06:20 AST 37 U/L (13-39) 03/16/19 06:20 ALT 18 U/L (7-52) 03/16/19 06:20 Alkaline Phosphatase 49 U/L (34-104) 03/16/19 06:20 Troponin I 3.54 ng/mL (<0.04) H* 03/16/19 09:45 C-Reactive Protein 7.18 mg/L (<8.01) 03/16/19 00:21 B-Natriuretic Peptide 225 pg/mL (<=100) H 03/16/19 00:21 Total Protein 6.5 g/dL (6.4-8.9) 03/16/19 06:20 Albumin 3.6 g/dL (3.2-5.2) 03/16/19 06:20 Globulin 2.9 g/dL (2-4) 03/16/19 06:20 Albumin/Globulin Ratio 1.2 (1-3) 03/16/19 06:20 Triglycerides 71 mg/dL 03/16/19 12:08 Cholesterol 135 mg/dL 03/16/19 12:08 LDL Cholesterol 74 mg/dL 03/16/19 12:08 HDL Cholesterol 46.4 mg/dL 03/16/19 12:08 TSH 1.41 mcIU/mL (0.34-5.60) 03/16/19 00:21 Urine Color Yellow 03/16/19 01:25 Urine Appearance Clear 03/16/19 01:25 Urine pH 6.0 (5-9) 03/16/19 01:25 Ur Specific [place] 1.013 (1.010-1.030) 03/16/19 01:25 Urine Protein Negative (Negative) 03/16/19 01:25 Urine Ketones Trace (Negative) A 03/16/19 01:25 Urine Blood Negative (Negative) 03/16/19 01:25 Urine Nitrate Negative (Negative) 03/16/19 01:25 Urine Bilirubin Negative (Negative) 03/16/19 01:25 Urine Urobilinogen Negative (Negative) 03/16/19 01:25 Ur Leukocyte Esterase Trace (Negative) A 03/16/19 01:25 Urine WBC (Auto) Trace(0-5/hpf) (Absent) 03/16/19 01:25 Urine RBC (Auto) 2+(6-10/hpf) (Absent) A 03/16/19 01:25 Urine Bacteria Absent (Absent) 03/16/19 01:25 Urine Glucose Negative (Negative) 03/16/19 01:25 Urine Ascorbic Acid * (Negative) A 03/16/19 01:25 - Objective Active Medications: Albuterol (Ventolin 2.5 Mg/3 Ml Neb.Lety*) 2.5 mg INH Q4H PRN PRN Reason: SOB/WHEEZING Albuterol/Ipratropium (Duoneb (Albuterol 2.5 Mg/Ipratropium 0.5 Mg)) 1 neb INH [id number] AWAKE HETAL Stop: 03/16/19 23:01 Alprazolam (Xanax Tab*) 0.5 mg PO BID HETAL Last Admin: 03/16/19 09:33 Dose: 0.5 mg Amlodipine Besylate (Norvasc Tab*) 5 mg PO DAILY [facility] Artificial Tears (Natural Balance Tears Eye Drop) 1 drop BOTH EYES Q2H PRN PRN Reason: DRY EYE Aspirin (Ecotrin Ec Tab*) 81 mg PO DAILY [facility] Last Admin: 03/16/19 10:07 Dose: 81.25 mg Atorvastatin Calcium (Lipitor*) 80 mg PO 1700 [facility]AL Clopidogrel Bisulfate (Plavix Tab*) 75 mg PO DAILY [facility] Last Admin: 03/16/19 09:32 Dose: 75 mg Magnesium Oxide (Magox 400 Tab*) 400 mg PO DAILY [facility] Last Admin: 03/16/19 09:32 Dose: 400 mg Metoprolol Succinate (Toprol Xl Tab*) 25 mg PO DAILY [facility] Last Admin: 03/16/19 09:31 Dose: 25 mg Mometasone Furoate/Formoterol Fumar (Dulera 200/5 Mdi*) 2 puff INH BID [facility]; Protocol Last Admin: 03/16/19 09:38 Dose: Not Given Morphine Sulfate (Morphine Inj (Syringe))*) 2 mg IV Q4H PRN PRN Reason: PAIN - SEVERE Last Admin: 03/16/19 13:52 Dose: 2 mg Vital Signs: Vital Signs: Temp Pulse Resp BP Pulse Ox 97 F 93 19 130/80 99 03/16/19 05:37 03/16/19 05:37 03/16/19 13:57 03/16/19 05:37 03/16/19 05:37 Patient Weight: Weight 45.813 kg Intake and Output: Intake & Output 03/14/19 03/15/19 03/16/19 03/17/19 06:59 06:59 06:59 06:59 Intake Total 0 180 Balance 0 180 Weight 45.813 kg Intake: Oral 0 180 ADLs: Meal Record Start: 03/16/19 04: 18 Freq: DAILY@0900,1400,1800 Status: Active Protocol: Created 03/16/19 04:18 System (Rec: 03/16/19 04:18 System [email or web address]) Document 03/16/19 09:00 [id number] (Rec: 03/16/19 10:49 [id number]) Intake and Output Start: 09/17/19 23: 18 Freq: Status: Active Protocol: Created 03/15/19 23:18 System (Rec: 03/15/19 23:18 System [id number]) Intake and Output Start: 03/16/19 04: 18 Freq: DAILY@0600,1400,2200 Status: Active Protocol: Created 03/16/19 04:18 System (Rec: 03/16/19 04:18 System [email or web address]) Document 03/16/19 06:00 [id number] (Rec: 03/16/19 06:23 [id number] [id number]) Head: Normal Eyes: No Scleral Icterus Ears/Nose/Mouth/Throat: NL Teeth, Lips, Gums, Clear Oropharnyx Neck: NL Appearance and Movements; NL JVP Cardiovascular: NL Sounds; No Murmurs; No JVD Respiratory: Clear to Auscultation Extremities: No Edema Neurological: Alert and Oriented x 3 - Assessment Assessment: 88yo female with COPD on 2.5liters with NSTEMI - Plan Consult Plan (MU): Palliative Plan: Long discussion with pt about care after she leaves the hospital. We re-did the MOLST because we can't read the current one. She is DNR/DNI & no feeding tube saying I'm 88 yo. At this time she doesn't want cardiac catheterization. She would like to return to her home but with the help of visiting nurse and physical therapy. She lives in a house converted to apartments and gives free rent to one tenant who is suppose to get her meals. Case management is involved trying to set up meals on wheels and visiting nurse service at discharge. Pt would like to remain at home and is interested in hospice when the time comes but is open to SNF if she is not safe at home. Pt is not hospice eligible. KPS 60%, PPS 60% - Time On Unit Date of Evaluation: 03/16/19 Hospice Consult Time in: 13:30 Hospice Consult Time Out: 15:00 Hospice Consult Time Total: 90 > 50% of Time Spend In Counseling or Coordinating Care: Yes
--- NOTE | 2019-03-16 15:20 | PN ---
Hospitalist Progress Note Date of Service: 03/16/19 Brief Re-Eval: Patient seen and examined. Discussed POC for today. She is in agreement with no stress and no cath. She has been seen by cardiology and agrees to conservative medical management with DAPT and requested Palliative consult. Trop trended up slightly. Increased neb treatments to optimize SOB and WOB. SW following. VS stable. Coordinated with primary RN.
[2019-03-16 15:57] LABS: Troponin I 2.43 ng/mL (<0.04)
[2019-03-16] MEDS: Atorvastatin* 80 MG TAB PO SCH (17:49)
--- NOTE | 2019-03-16 18:25 | ECHO ---
*[facility]* [place] [address] Fax #: [phone] Transthoracic Echocardiogram Patient: Crista Tucker : 1930 Study Date: 03/16/2019 Age: 88 Gender: F HR: 75 bpm Height: 63 in /160 cm BSA: 1.41 m^2 Weight: 99.8 lb /45.4 kg BMI: 17.7 kg/m^2 *Insurance Case Manager: * Rosa Corona [facility] *Referring Physician: * Ken Weems *Reading Physician: * Odalis Bustillo MD Indications: Chest Pain, unspecified. History: Chronic obstructive pulmonary disease. The patient has a history of lung cancer. Risk factors: Hypertension. Conclusions Summary: - Left ventricle: The cavity size is mildly reduced. Wall thickness is mildly increased. Systolic function is normal. The estimated ejection fraction is 55-60%. Doppler parameters are consistent with abnormal left ventricular relaxation (grade 1 diastolic dysfunction). Doppler parameters are consistent with elevated ventricular end-diastolic filling pressure. - Right ventricle: Systolic function is normal. - Mitral valve: There is trace regurgitation. - Tricuspid valve: There is mild regurgitation. - Pulmonary arteries: The peak pressure during systole by Doppler is 30.8 mm Hg. - Compared with prior echocardiogram of 04/24/16, ejection fraction previously 65%, diastolic dysfunction noted previously, elevated LVEDP newly noted, valve function not signfiicantly changed. Study data: Transthoracic echocardiogram. Procedure: Transthoracic echocardiography was performed. Image quality was fair. The study was technically limited due to poor patient compliance. Complete 2D, spectral Doppler, and color flow Doppler. Location: Bedside. Patient status: Inpatient. Patient room number: 446. Rhythm: Normal sinus rhythm. Findings Left ventricle: The cavity size is mildly reduced. Wall thickness is mildly increased. Systolic function is normal. The estimated ejection fraction is 55-60%. Wall motion is normal; there are no regional wall motion abnormalities. Doppler parameters are consistent with abnormal left ventricular relaxation (grade 1 diastolic dysfunction). Doppler parameters are consistent with elevated ventricular end-diastolic filling pressure. Right ventricle: The cavity size is normal. Systolic function is normal. Left atrium: The atrium is normal in size. Right atrium: The atrium is normal in size. Mitral valve: The leaflets are mildly thickened. There is no evidence of stenosis. There is trace regurgitation. Aortic valve: The valve is trileaflet. The leaflets are mildly thickened. There is no evidence of stenosis. There is no significant regurgitation. Tricuspid valve: The leaflets are normal thickness. There is no evidence of stenosis. There is mild regurgitation. Pulmonic valve: The leaflets are normal thickness. There is no evidence of stenosis. There is trace to mild regurgitation. Aorta: Aortic root: The aortic root is appears normal. Ascending aorta: The ascending aorta is poorly visualized. Aortic arch: The aortic arch is appears normal. Pericardium: There is no significant pericardial effusion. Pulmonary arteries: Not well visualized. Systolic pressure is within the normal range. Systemic veins: Inferior vena cava: The vessel is dilated. There is (>= 50%) respiratory change in the IVC dimension. Measurements Left ventricle Value Ref Aortic valve continued Value Ref BRITANY, LAX (L) 2.7 cm 3.8 - 5.2 VTI, S 17.1 cm ----- ESD, LAX (L) 2.1 cm 2.2 - 3.5 Mean grad, S 1.9 mm Hg ----- FS, LAX (L) 20 % 27 - 45 Peak grad, S 3.0 mm Hg ----- PW, ED, LAX (H) 1.2 cm 0.6 - 0.9 LVOT/AV, VTI ratio 1.1 ----- EF (L) 43 % 54 - 74 E', lat logan, TDI (L) 4.0 cm/sec >=10.0 Mitral valve Value R ef E/e', lat logan, 15 Peak E 0.62 m/sec ---- - TDI Peak A 0.82 m/sec ----- E', med logan, TDI (L) 4.0 cm/sec >=7.0 VTI leaflet coapt 20.2 cm - ---- E/e', med logan, 15 Decel time 193 ms ---- - TDI Mean grad, D 1.3 mm Hg ----- E', avg, TDI 4.0 cm/sec Peak grad, D 3.6 mm Hg ---- - E/e', avg, TDI (H) 15 <=14 Peak E/A ratio 0.75 - ---- LVOT Value Ref Pulmonic valve Value Ref Peak marko, S 0.8 m/sec Peak v, S 0.75 m/sec ----- VTI, S 18.0 cm Peak grad, S 2.3 mm Hg ----- Peak grad, S 3 mm Hg Mean grad, S 1 mm Hg Tricuspid valve Value Ref TR peak v 2.5 m/sec <=2.8 Ventricular septum Value Ref Peak RV-RA grad, S 25 mm Hg ----- IVS, ED (H) 1.1 cm 0.6 - 0.9 Aortic root Value Ref Right ventricle Value Ref Root diam 2.6 cm <3.7 BRITANY, LAX 1.8 cm BRITANY major ax, A4C (L) 3.1 cm 5.9 - 8.3 Aortic arch Value Ref Pressure, S 33 mm Hg Arch diam 2.6 cm ----- Left atrium Value Ref Pulmonary artery Value Ref AP dim, ES (L) 2.10 cm 2.70 - Pressure, S 30.8 mm Hg ----- 3.80 ML dim, A4C 3.1 cm Inferior vena cava Value Ref SI dim, A4C 4.1 cm Diam 2.2 cm ----- Vol/bsa, ES, 2-p 18 ml/m^2 16 - 34 Pulmonary veins Value Ref Right atrium Value Ref Peak v, S 0.54 m/sec ----- SI dim, ES 3.5 cm 3.4 - 5.3 Peak v, D 0.51 m/sec ----- ML dim, ES, A4C 3.0 cm 2.6 - 4.4 Peak S/D ratio 1.06 ----- Estimated RAP 8 mm Hg A rev duration 118 ms ----- Aortic valve Value Ref Logan diam, ED 1.9 cm Peak v, S 0.9 m/sec Legend: (L) and (H) reza values outside specified reference range. Prepared and electronically signed by Odalis Bustillo MD 03/16/2019 18:25
[2019-03-16] MEDS: Acetaminophen TAB* 325 MG PO PRN (21:27)
--- NOTE | 2019-03-16 22:06 | HP ---
H&P (Free Text) History and Physical: See Dictated note by MEENA Mosley. Pt with COPD presented with SOB and SS burning CP radiating to arms. Better. Acetaminophen (Tylenol Tab*) 650 mg PO Q6H PRN PRN Reason: MILD PAIN or TEMP > 100.4 Last Admin: 03/16/19 21:27 Dose: 650 mg Albuterol (Ventolin 2.5 Mg/3 Ml Neb.Farhad*) 2.5 mg INH Q4H PRN PRN Reason: SOB/WHEEZING Albuterol/Ipratropium (Duoneb (Albuterol 2.5 Mg/Ipratropium 0.5 Mg)) 1 neb INH [id number] AWAKE [facility] Stop: 03/16/19 23:01 Last Admin: 03/16/19 19:57 Dose: 1 neb Alprazolam (Xanax Tab*) 0.5 mg PO BID [facility] Last Admin: 03/16/19 21:27 Dose: 0.5 mg Amlodipine Besylate (Norvasc Tab*) 5 mg PO DAILY [facility] Artificial Tears (Natural Balance Tears Eye Drop) 1 drop BOTH EYES Q2H PRN PRN Reason: DRY EYE Aspirin (Ecotrin Ec Tab*) 81 mg PO DAILY [facility] Last Admin: 03/16/19 10:07 Dose: 81.25 mg Atorvastatin Calcium (Lipitor*) 80 mg PO 1700 [facility] Last Admin: 03/16/19 17:49 Dose: 80 mg Clopidogrel Bisulfate (Plavix Tab*) 75 mg PO DAILY [facility] Last Admin: 03/16/19 09:32 Dose: 75 mg Magnesium Oxide (Magox 400 Tab*) 400 mg PO DAILY [facility] Last Admin: 03/16/19 09:32 Dose: 400 mg Metoprolol Succinate (Toprol Xl Tab*) 25 mg PO DAILY [facility] Last Admin: 03/16/19 09:31 Dose: 25 mg Mometasone Furoate/Formoterol Fumar (Dulera 200/5 Mdi*) 2 puff INH BID [facility]; Protocol Last Admin: 03/16/19 19:56 Dose: 2 puff Morphine Sulfate (Morphine Inj (Syringe))*) 2 mg IV Q4H PRN PRN Reason: PAIN - SEVERE Last Admin: 03/16/19 13:52 Dose: 2 mg HOME MEDS:A/ ALPRAZolam TAB* [Xanax TAB*] 0.5 mg PO BID 09/08/15 [History Confirmed 03/16/19] Budesonide/Formote 160/4.5(NF) [Symbicort 160/4.5 (NF)] 2 puff INH BID 09/08/15 [History Confirmed 03/16/19] Albuterol 2.5MG/3ML (0.083%)* [Ventolin 2.5 MG/3 ML NEB.FARHAD*] 2.5 mg INH TID PRN 06/11/16 [History Confirmed 03/16/19] Albuterol HFA INHALER* [Ventolin HFA Inhaler*] 2 puff INH Q4H PRN 09/01/17 [ History Confirmed 03/16/19] Magnesium Oxide TAB* [MagOx 400 TAB*] 400 mg PO DAILY 09/01/17 [History Confirmed 03/16/19] Metoprolol Succinate XL TAB* [Toprol XL TAB*] 25 mg PO DAILY 09/01/17 [History Confirmed 03/16/19] amLODIPine TAB* [Norvasc 5 mg TAB*] 2.5 mg PO DAILY 09/01/17 [History Confirmed 03/16/19] Artificial Tears* 15 ML BTL [Polyvinyl Alcohol 1.4% OPTH*] 1 drop BOTH EYES Q2H PRN btl 09/15/17 [Rx Confirmed 03/16/19] Albuterol/Ipratropium NEB.FARHAD* [Duoneb (Albuterol 2.5 MG/Ipratropium 0.5 MG)] 1 neb INH Q6H PRN #30 neb.farhad 05/07/18 [Rx Confirmed 03/16/19] predniSONE TAB* [Deltasone 20 MG TAB*] 40 mg PO DAILY #8 tab 05/07/18 [Rx Confirmed 03/16/19] Vital Signs - 12 hr Temp Pulse Resp BP Pulse Ox 03/16/19 21:27 16 03/16/19 20:00 94 20 100 03/16/19 19:59 94 18 99 03/16/19 19:11 97.5 F 83 16 112/47 100 03/16/19 14:42 93 20 99 03/16/19 13:57 19 03/16/19 13:52 19 03/16/19 12:16 16 03/16/19 11:40 97.9 F 79 20 99/48 100 Thin, sitting upright, alert Diminshed BS S1S2 regular. Laboratory Results WBC 8.7 10^3/uL (3.5-10.8) 03/16/19 06:20 RBC 4.07 10^6 /uL (3.70-4.87) 03/16/19 06:20 Hgb 12.5 g/dL (12.0-16.0) 03/16/19 06:20 Hct 38 % (35-47) 03/16/19 06:20 MCV 93 fL (80-97) 03/16/19 06:20 MCH 31 pg (27-31) 03/16/19 06:20 MCHC 33 g/dL (31-36) 03/16/19 06:20 RDW 14 % (10-15) 03/16/19 06:20 Plt Count 215 10^3/uL (150-450) 03/16/19 06:20 MPV 9.9 fL (7.4-10.4) 03/16/19 06:20 Neut % (Auto) 61.8 % 03/16/19 06:20 Lymph % (Auto) 23.5 % 03/16/19 06:20 [place] % (Auto) 12.7 % 03/16/19 06:20 Eos % (Auto) 1.5 % 03/16/19 06:20 Baso % (Auto) 0.5 % 03/16/19 06:20 Absolute Neuts (auto) 5.4 10^3/ul (1.5-7.7) 03/16/19 06:20 Absolute Lymphs (auto) 2.1 10^3/ul (1.0-4.8) 03/16/19 06:20 Absolute Monos (auto) 1.1 10^3/ul (0-0.8) H 03/16/19 06:20 Absolute Eos (auto) 0.1 10^3/ul (0-0.6) 03/16/19 06:20 Absolute Basos (auto) 0.0 10^3/ul (0-0.2) 03/16/19 06:20 Absolute Nucleated RBC 0.0 10^3/ul 03/16/19 06:20 Nucleated RBC % 0.0 03/16/19 06:20 INR (Anticoag Therapy) 0.99 (0.82-1.09) 03/16/19 00:21 APTT 38.2 seconds (26.0-38.0) H 03/16/19 03:18 ABG pH 7.38 (7.35-7.45) 03/16/19 01:15 ABG pCO2 57 mmHg (35-45) H 03/16/19 01:15 ABG pO2 82 mmHg (80-100) 03/16/19 01:15 ABG HCO3 30.2 mmol/L (19-31) 03/16/19 01:15 ABG O2 Saturation 98.5 % (94.0-98.0) H 03/16/19 01:15 ABG Base Excess 6.8 mmol/L (-2.0-2.0) H 03/16/19 01:15 Sodium 138 mmol/L (135-145) 03/16/19 06:20 Potassium 3.6 mmol/L (3.5-5.0) 03/16/19 06:20 Chloride 100 mmol/L (101-111) L 03/16/19 06:20 Carbon Dioxide 33 mmol/L (22-32) H 03/16/19 06:20 Anion Gap 5 mmol/L (2-11) 03/16/19 06:20 BUN 20 mg/dL (6-24) 03/16/19 06:20 Creatinine 0.61 mg/dL (0.51-0.95) 03/16/19 06:20 Est GFR ( Amer) 112.5 (>60) 03/16/19 06:20 Est GFR (Non-Af Amer) 93.0 (>60) 03/16/19 06:20 BUN/Creatinine Ratio 32.8 (8-20) H 03/16/19 06:20 Glucose 92 mg/dL (70-100) 03/16/19 06:20 Hemoglobin A1c 5.7 % (4.0-5.6) H 03/16/19 06:20 Calcium 9.2 mg/dL (8.6-10.3) 03/16/19 06:20 Magnesium 2.1 mg/dL (1.9-2.7) 03/16/19 00:21 Total Bilirubin 0.40 mg/dL (0.2-1.0) 03/16/19 06:20 Direct Bilirubin 0.10 mg/dL (0.03-0.18) 03/16/19 06:20 Indirect Bilirubin 0.3 mg/dL (0.3-1.0) 03/16/19 06:20 AST 37 U/L (13-39) 03/16/19 06:20 ALT 18 U/L (7-52) 03/16/19 06:20 Alkaline Phosphatase 49 U/L (34-104) 03/16/19 06:20 Troponin I 2.43 ng/mL (<0.04) H* 03/16/19 15:31 C-Reactive Protein 7.18 mg/L (<8.01) 03/16/19 00:21 B-Natriuretic Peptide 225 pg/mL (<=100) H 03/16/19 00:21 Total Protein 6.5 g/dL (6.4-8.9) 03/16/19 06:20 Albumin 3.6 g/dL (3.2-5.2) 03/16/19 06:20 Globulin 2.9 g/dL (2-4) 03/16/19 06:20 Albumin/Globulin Ratio 1.2 (1-3) 03/16/19 06:20 Triglycerides 71 mg/dL 03/16/19 12:08 Cholesterol 135 mg/dL 03/16/19 12:08 LDL Cholesterol 74 mg/dL 03/16/19 12:08 HDL Cholesterol 46.4 mg/dL 03/16/19 12:08 TSH 1.41 mcIU/mL (0.34-5.60) 03/16/19 00:21 Urine Color Yellow 03/16/19 01:25 Urine Appearance Clear 03/16/19 01:25 Urine pH 6.0 (5-9) 03/16/19 01:25 Ur Specific [place] 1.013 (1.010-1.030) 03/16/19 01:25 Urine Protein Negative (Negative) 03/16/19 01:25 Urine Ketones Trace (Negative) A 03/16/19 01:25 Urine Blood Negative (Negative) 03/16/19 01:25 Urine Nitrate Negative (Negative) 03/16/19 01:25 Urine Bilirubin Negative (Negative) 03/16/19 01:25 Urine Urobilinogen Negative (Negative) 03/16/19 01:25 Ur Leukocyte Esterase Trace (Negative) A 03/16/19 01:25 Urine WBC (Auto) Trace(0-5/hpf) (Absent) 03/16/19 01:25 Urine RBC (Auto) 2+(6-10/hpf) (Absent) A 03/16/19 01:25 Urine Bacteria Absent (Absent) 03/16/19 01:25 Urine Glucose Negative (Negative) 03/16/19 01:25 Urine Ascorbic Acid * (Negative) A 03/16/19 01:25 * Transthoracic Echocardiogram Patient: Crista Tucker : 1930 Study Date: 03/16/2019 Summary: - Left ventricle: The cavity size is mildly reduced. Wall thickness is mildly increased. Systolic function is normal. The estimated ejection fraction is 55-60%. Doppler parameters are consistent with abnormal left ventricular relaxation (grade 1 diastolic dysfunction). Doppler parameters are consistent with elevated ventricular end-diastolic filling pressure. - Right ventricle: Systolic function is normal. - Mitral valve: There is trace regurgitation. - Tricuspid valve: There is mild regurgitation. - Pulmonary arteries: The peak pressure during systole by Doppler is 30.8 mm Hg. - Compared with prior echocardiogram of 04/24/16, ejection fraction previously 65%, diastolic dysfunction noted previously, elevated CTA 03/15/19: No PE, moderate emphesema ECG's 03/15/19 + 03/16/19: NSR, new ST depression lateral leads. A/P 88 yo with COPD, presenting with small NSTEMI based on ECG changes, troponin elevation. Medical management. Current adjustments include: Add plavix, lower ASA Increase Norvasc. Statin added at admission. Any stabilization in COPD will benefit cardiac care.
[2019-03-17] MEDS: Mometasone/Formoter 200/5 MDI INH SCH ×2 (08:11→19:50)
--- NOTE | 2019-03-17 08:31 | PN ---
Subjective Date of Service: 03/17/19 Interval History: f/u nstemi confused from morphine, doesn't want anymore no definite chest and bilateral arm burning (anginal symptom) breathing at baseline tele: nsr, no arrhythmias Medications Active Medications: Acetaminophen (Tylenol Tab*) 650 mg PO Q6H PRN PRN Reason: MILD PAIN or TEMP > 100.4 Last Admin: 03/16/19 21:27 Dose: 650 mg Albuterol (Ventolin 2.5 Mg/3 Ml Neb.Lety*) 2.5 mg INH Q4H PRN PRN Reason: SOB/WHEEZING Alprazolam (Xanax Tab*) 0.5 mg PO BID [facility] Last Admin: 03/16/19 21:27 Dose: 0.5 mg Amlodipine Besylate (Norvasc Tab*) 5 mg PO DAILY [facility] Artificial Tears (Natural Balance Tears Eye Drop) 1 drop BOTH EYES Q2H PRN PRN Reason: DRY EYE Aspirin (Ecotrin Ec Tab*) 81 mg PO DAILY [facility] Last Admin: 03/16/19 10:07 Dose: 81.25 mg Atorvastatin Calcium (Lipitor*) 80 mg PO 1700 [facility] Last Admin: 03/16/19 17:49 Dose: 80 mg Clopidogrel Bisulfate (Plavix Tab*) 75 mg PO DAILY [facility] Last Admin: 03/16/19 09:32 Dose: 75 mg Magnesium Oxide (Magox 400 Tab*) 400 mg PO DAILY [facility] Last Admin: 03/16/19 09:32 Dose: 400 mg Metoprolol Succinate (Toprol Xl Tab*) 25 mg PO DAILY [facility] Last Admin: 03/16/19 09:31 Dose: 25 mg Mometasone Furoate/Formoterol Fumar (Dulera 200/5 Mdi*) 2 puff INH BID [facility]; Protocol Last Admin: 03/17/19 08:11 Dose: 2 puff Objective Vital Signs: Temp Pulse Resp BP Pulse Ox 98.3 F 88 16 100/58 100 03/17/19 04:20 03/17/19 08:16 03/17/19 08:16 03/17/19 04:20 03/17/19 08:16 Oxygen Devices in Use Now: Nasal Cannula Appearance: frail, elderly Ears/Nose/Mouth/Throat: Clear Oropharnyx Neck: NL Appearance and Movements; NL JVP, Trachea Midline Respiratory: Symmetrical Chest Expansion and Respiratory Effort, - - no obvious wheeze or rales Cardiovascular: NL Sounds; No Murmurs; No JVD, RRR, No Edema Abdominal: NL Sounds; No Tenderness; No Distention Skin: No Rash or Ulcers Neurological: Alert and Oriented x 3 Laboratory Results: 03/16/19 06:20 03/16/19 06:20 INR (Anticoag Therapy) 0.99 (0.82-1.09) 03/16/19 00:21 APTT 38.2 seconds (26.0-38.0) H 03/16/19 03:18 Total Bilirubin 0.40 mg/dL (0.2-1.0) 03/16/19 06:20 Direct Bilirubin 0.10 mg/dL (0.03-0.18) 03/16/19 06:20 Indirect Bilirubin 0.3 mg/dL (0.3-1.0) 03/16/19 06:20 AST 37 U/L (13-39) 03/16/19 06:20 ALT 18 U/L (7-52) 03/16/19 06:20 Alkaline Phosphatase 49 U/L (34-104) 03/16/19 06:20 B-Natriuretic Peptide 225 pg/mL (<=100) H 03/16/19 00:21 Total Protein 6.5 g/dL (6.4-8.9) 03/16/19 06:20 Albumin 3.6 g/dL (3.2-5.2) 03/16/19 06:20 Globulin 2.9 g/dL (2-4) 03/16/19 06:20 Albumin/Globulin Ratio 1.2 (1-3) 03/16/19 06:20 Triglycerides 71 mg/dL 03/16/19 12:08 Cholesterol 135 mg/dL 03/16/19 12:08 LDL Cholesterol 74 mg/dL 03/16/19 12:08 HDL Cholesterol 46.4 mg/dL 03/16/19 12:08 TSH 1.41 mcIU/mL (0.34-5.60) 03/16/19 00:21 03/16/19 03/16/19 03/16/19 00:21 03:18 06:20 Troponin I 2.65 H* 3.29 H* 3.28 H* 03/16/19 03/16/19 09:45 15:31 Troponin I 3.54 H* 2.43 H* Diagnostic Imaging: Transthoracic Echocardiogram Study Date: 03/16/2019 Conclusions Summary: - Left ventricle: The cavity size is mildly reduced. Wall thickness is mildly increased. Systolic function is normal. The estimated ejection fraction is 55-60%. - Right ventricle: Systolic function is normal. - Mitral valve: There is trace regurgitation. - Tricuspid valve: There is mild regurgitation. - Pulmonary arteries: The peak pressure during systole by Doppler is 30.8 mm Hg. Exam Date: 03/16/19 0 CTA CHEST IMPRESSION: 1. No pulmonary emboli. 2. Moderate severe emphysema. 3. Stable right thyroid lobe nodule. No followup imaging indicated per ACR guidelines. EKG Data: ekgs 03/15 and 03/16/2019: NSR, inferior and v4-v6 st/t changes consistent with myocardial ischemia new since 04/2018 Assessment/Plan 1. NSTEMI - peak cTnI 3.5, LVEF normal, no CHF, arrhythmias or hemodynamic instability 2. COPD on 3. Lung cancer s/p R upper lobecotmy Continue current medications except - Add therapeutic lovenox (ordered) - d/c morphine PRN and add PRN nitroglycerine (ordered). Observe for further spontaneous angina which may change manager plan - Would not discharge today Thank you for allowing me to participate in the cardiovascular care of this patient. Please do not hesitate to contact me with questions or concerns
[2019-03-17] MEDS ORDERED: Nitroglycerin TAB 0.4 MG* 0.4 MG TAB SL PRN (08:40)
[2019-03-17] MEDS ORDERED: Aspirin EC TAB* 81 MG TAB.EC ONE (10:23)
[2019-03-17] MEDS: Acetaminophen TAB* 325 MG PO PRN ×2 (10:28→14:11)
[2019-03-17] MEDS: ALPRAZolam TAB* 0.5 MG PO SCH ×2 (10:30→20:15)
[2019-03-17] MEDS: Clopidogrel TAB* 75 MG PO SCH (10:30)
[2019-03-17] MEDS: Magnesium Oxide TAB* 400 MG PO SCH (10:30)
[2019-03-17] MEDS: Metoprolol Succinate XL TAB* 25 MG PO SCH (10:30)
[2019-03-17] MEDS: amLODIPine TAB* 5 MG PO SCH (10:31)
[2019-03-17] MEDS: Aspirin EC TAB* 325 MG PO SCH (10:33)
[2019-03-17] MEDS: Enoxaparin(*) 40 MG/0.4 ML SYR SUBCUT SCH (10:34)
[2019-03-17] MEDS: Atorvastatin* 80 MG TAB PO SCH (17:29)
--- NOTE | 2019-03-17 17:56 | PN ---
Subjective Date of Service: 03/17/19 Interval History: Patient seen and examined this morning, complaining of chest pain and weakness. Substernal. States it started because her breakfast was stressful. Denies acute SOB, states her breathing feels improved. No fevers or chills. No overnight events. Objective Active Medications: Acetaminophen (Tylenol Tab*) 650 mg PO Q6H PRN PRN Reason: MILD PAIN or TEMP > 100.4 Last Admin: 03/17/19 14:11 Dose: 650 mg Albuterol (Ventolin 2.5 Mg/3 Ml Neb.Lety*) 2.5 mg INH Q4H PRN PRN Reason: SOB/WHEEZING Alprazolam (Xanax Tab*) 0.5 mg PO BID [facility] Last Admin: 03/17/19 10:30 Dose: 0.5 mg Amlodipine Besylate (Norvasc Tab*) 5 mg PO DAILY [facility] Last Admin: 03/17/19 10:31 Dose: 5 mg Artificial Tears (Natural Balance Tears Eye Drop) 1 drop BOTH EYES Q2H PRN PRN Reason: DRY EYE Aspirin (Ecotrin Ec Tab*) 81 mg PO DAILY [facility] Last Admin: 03/17/19 10:33 Dose: 81 mg Atorvastatin Calcium (Lipitor*) 80 mg PO 1700 [facility] Last Admin: 03/17/19 17:29 Dose: 80 mg Clopidogrel Bisulfate (Plavix Tab*) 75 mg PO DAILY [facility] Last Admin: 03/17/19 10:30 Dose: 75 mg Enoxaparin Sodium (Lovenox(*)) 40 mg SUBCUT Q24H [facility] Last Admin: 03/17/19 10:34 Dose: 40 mg Magnesium Oxide (Magox 400 Tab*) 400 mg PO DAILY [facility] Last Admin: 03/17/19 10:30 Dose: 400 mg Metoprolol Succinate (Toprol Xl Tab*) 25 mg PO DAILY [facility] Last Admin: 03/17/19 10:30 Dose: 25 mg Mometasone Furoate/Formoterol Fumar (Dulera 200/5 Mdi*) 2 puff INH BID [facility]; Protocol Last Admin: 03/17/19 08:11 Dose: 2 puff Nitroglycerin (Nitroglycerin Tab 0.4 Mg*) 0.4 mg SL Q5M PRN PRN Reason: ANGINA Last Admin: 03/17/19 10:12 Dose: 0.4 mg Vital Signs - 8 hr 03/17/19 03/17/19 10:30 15:23 Respiratory 16 16 Rate Oxygen Devices in Use Now: Nasal Cannula Appearance: alert, mild distress Eyes: PERRLA Ears/Nose/Mouth/Throat: NL Teeth, Lips, Gums, Mucous Membranes Moist Neck: NL Appearance and Movements; NL JVP, Trachea Midline Respiratory: - - improved air entry with left >right, diminished half up bases Cardiovascular: NL Sounds; No Murmurs; No JVD, RRR, No Edema Abdominal: NL Sounds; No Tenderness; No Distention Skin: No Rash or Ulcers Neurological: Alert and Oriented x 3, - - general weakness Nutrition: Taking PO's Result Diagrams: 03/16/19 06:20 03/16/19 06:20 Microbiology and Other Data: Microbiology 03/16/19 01:25 Urine Culture - Final Urine No Growth (<1,000 CFU/mL) 03/16/19 05:38 Nasal Screen MRSA (PCR) - Final Nasal Mrsa Detected Assess/Plan/Problems-Billing Assessment: This is an 88 year old female with history of advanced COPD, lung CA and chronic respiratory failure that presented to the ED with complaints of 3 days of substernal chest pain radiating to the upper arms. - Patient Problems (1) NSTEMI (non-ST elevated myocardial infarction) Code(s): I21.4 - NON-ST ELEVATION (NSTEMI) MYOCARDIAL INFARCTION SNOMED Code(s ): 34555408 Comment: - Trops peaked at 3.5 - Heparin gtt discontinued, patient declines stress or cath - Placed on therapeutic lovenox per cardiology - Continue DAPT with NTG prn - Repeat EKG with no changes from yesterday (2) Anxiety Code(s): F41.9 - ANXIETY DISORDER, UNSPECIFIED SNOMED Code(s): 33657423 Comment: - Continue Xanax prn (3) COPD (chronic obstructive pulmonary disease) Code(s): J44.9 - CHRONIC OBSTRUCTIVE PULMONARY DISEASE, UNSPECIFIED SNOMED Code(s): 87044943 Comment: - Continue nebs, dulera and supplemental O2 (4) Chronic respiratory failure with hypoxia Comment: - On Oxygen at 2.5 L at home, continue (5) History of lung cancer Code(s): Z85.118 - PERSONAL HISTORY OF MALIGNANT NEOPLASM OF BRONCHUS AND LUNG SNOMED Code(s): 518250128 Comment: - S/P right upper lobectomy, on home O2, at baseline (6) HTN (hypertension) Code(s): I10 - ESSENTIAL (PRIMARY) HYPERTENSION SNOMED Code(s): 86264253 Comment: - Continue amlodipine and metoprolol (7) History of colorectal cancer Code(s): Z85.038 - PERSONAL HISTORY OF MALIGNANT NEOPLASM OF LARGE INTESTINE SNOMED Code(s): 586580117 Comment: - S/P colectomy (8) DVT prophylaxis Code(s): QKI6752 - SNOMED Code(s): 974342228 Comment: - lovenox (9) DNR (do not resuscitate) Status and Disposition: Inpatient for NSTEMI tx.
[2019-03-17] MEDS: Dextran 70/Hypromellose Tears Eye Drops 15 ml BTL (for Artificials Tears) BOTH EYES PRN (20:13)
[2019-03-18] MEDS: Acetaminophen TAB* 325 MG PO PRN ×2 (00:19→08:08)
[2019-03-18] MEDS: Dextran 70/Hypromellose Tears Eye Drops 15 ml BTL (for Artificials Tears) BOTH EYES PRN (05:14)
[2019-03-18] MEDS ORDERED: Aspirin EC TAB* 81 MG TAB.EC PO SCH (08:03)
[2019-03-18] MEDS: Clopidogrel TAB* 75 MG PO SCH (08:10)
[2019-03-18] MEDS: ALPRAZolam TAB* 0.5 MG PO SCH (08:10)
[2019-03-18] MEDS: Magnesium Oxide TAB* 400 MG PO SCH (08:11)
[2019-03-18] MEDS: Metoprolol Succinate XL TAB* 25 MG PO SCH (08:13)
[2019-03-18] MEDS: amLODIPine TAB* 5 MG PO SCH (08:14)
[2019-03-18] MEDS: Mometasone/Formoter 200/5 MDI INH SCH (08:37)
--- NOTE | 2019-03-18 09:55 | PN ---
Subjective Date of Service: 03/18/19 Interval History: f/u nstemi no chest and bilateral arm burning (anginal symptom) breathing at baseline wants to go home tele: nsr, no arrhythmias Medications Active Medications: Acetaminophen (Tylenol Tab*) 650 mg PO Q6H PRN PRN Reason: MILD PAIN or TEMP > 100.4 Last Admin: 03/18/19 08:08 Dose: 650 mg Albuterol (Ventolin 2.5 Mg/3 Ml Neb.Lety*) 2.5 mg INH Q4H PRN PRN Reason: SOB/WHEEZING Last Admin: 03/18/19 04:53 Dose: 2.5 mg Alprazolam (Xanax Tab*) 0.5 mg PO BID [facility] Last Admin: 03/18/19 08:10 Dose: 0.5 mg Amlodipine Besylate (Norvasc Tab*) 5 mg PO DAILY [facility] Last Admin: 03/18/19 08:14 Dose: 5 mg Artificial Tears (Natural Balance Tears Eye Drop) 1 drop BOTH EYES Q2H PRN PRN Reason: DRY EYE Last Admin: 03/18/19 05:14 Dose: 1 drop Aspirin (Aspirin Ec Tab*) 81 mg PO DAILY [facility] Atorvastatin Calcium (Lipitor*) 80 mg PO 1700 [facility] Last Admin: 03/17/19 17:29 Dose: 80 mg Clopidogrel Bisulfate (Plavix Tab*) 75 mg PO DAILY [facility] Last Admin: 03/18/19 08:10 Dose: 75 mg Enoxaparin Sodium (Lovenox(*)) 40 mg SUBCUT Q24H [facility] Last Admin: 03/17/19 10:34 Dose: 40 mg Magnesium Oxide (Magox 400 Tab*) 400 mg PO DAILY [facility] Last Admin: 03/18/19 08:11 Dose: 400 mg Metoprolol Succinate (Toprol Xl Tab*) 25 mg PO DAILY [facility] Last Admin: 03/18/19 08:13 Dose: 25 mg Mometasone Furoate/Formoterol Fumar (Dulera 200/5 Mdi*) 2 puff INH BID [facility]; Protocol Last Admin: 03/18/19 08:37 Dose: 2 puff Nitroglycerin (Nitroglycerin Tab 0.4 Mg*) 0.4 mg SL Q5M PRN PRN Reason: ANGINA Last Admin: 03/17/19 10:12 Dose: 0.4 mg Objective Vital Signs: Temp Pulse Resp BP Pulse Ox 97.7 F 87 18 110/53 98 03/18/19 03:06 03/18/19 08:40 03/18/19 08:40 03/18/19 03:06 03/18/19 08:40 Oxygen Devices in Use Now: Nasal Cannula Appearance: frail, elderly Ears/Nose/Mouth/Throat: Clear Oropharnyx Neck: NL Appearance and Movements; NL JVP, Trachea Midline Respiratory: Symmetrical Chest Expansion and Respiratory Effort, - - no obvious wheeze or rales Cardiovascular: NL Sounds; No Murmurs; No JVD, RRR, No Edema Abdominal: NL Sounds; No Tenderness; No Distention Skin: No Rash or Ulcers Neurological: Alert and Oriented x 3 Laboratory Results: 03/16/19 06:20 03/16/19 06:20 INR (Anticoag Therapy) 0.99 (0.82-1.09) 03/16/19 00:21 APTT 38.2 seconds (26.0-38.0) H 03/16/19 03:18 Total Bilirubin 0.40 mg/dL (0.2-1.0) 03/16/19 06:20 Direct Bilirubin 0.10 mg/dL (0.03-0.18) 03/16/19 06:20 Indirect Bilirubin 0.3 mg/dL (0.3-1.0) 03/16/19 06:20 AST 37 U/L (13-39) 03/16/19 06:20 ALT 18 U/L (7-52) 03/16/19 06:20 Alkaline Phosphatase 49 U/L (34-104) 03/16/19 06:20 B-Natriuretic Peptide 225 pg/mL (<=100) H 03/16/19 00:21 Total Protein 6.5 g/dL (6.4-8.9) 03/16/19 06:20 Albumin 3.6 g/dL (3.2-5.2) 03/16/19 06:20 Globulin 2.9 g/dL (2-4) 03/16/19 06:20 Albumin/Globulin Ratio 1.2 (1-3) 03/16/19 06:20 Triglycerides 71 mg/dL 03/16/19 12:08 Cholesterol 135 mg/dL 03/16/19 12:08 LDL Cholesterol 74 mg/dL 03/16/19 12:08 HDL Cholesterol 46.4 mg/dL 03/16/19 12:08 TSH 1.41 mcIU/mL (0.34-5.60) 03/16/19 00:21 03/16/19 03/16/19 03/16/19 00:21 03:18 06:20 Troponin I 2.65 H* 3.29 H* 3.28 H* 03/16/19 03/16/19 09:45 15:31 Troponin I 3.54 H* 2.43 H* Diagnostic Imaging: Transthoracic Echocardiogram Study Date: 03/16/2019 Conclusions Summary: - Left ventricle: The cavity size is mildly reduced. Wall thickness is mildly increased. Systolic function is normal. The estimated ejection fraction is 55-60%. - Right ventricle: Systolic function is normal. - Mitral valve: There is trace regurgitation. - Tricuspid valve: There is mild regurgitation. - Pulmonary arteries: The peak pressure during systole by Doppler is 30.8 mm Hg. Exam Date: 03/16/19 0 CTA CHEST IMPRESSION: 1. No pulmonary emboli. 2. Moderate severe emphysema. 3. Stable right thyroid lobe nodule. No followup imaging indicated per ACR guidelines. EKG Data: ekgs 03/15 and 03/16/2019: NSR, inferior and v4-v6 st/t changes consistent with myocardial ischemia new since 04/2018 Assessment/Plan 1. NSTEMI - peak cTnI 3.5, LVEF normal, no CHF, arrhythmias or hemodynamic instability 2. COPD on 3. Lung cancer s/p R upper lobecotmy If patient remains asymptomatic she can be discharged from a cardiac standpoint on current medications later today. I emphasized medication adherence to reduce the risk of recurrent CV events and Thank you for allowing me to participate in the cardiovascular care of this patient. Please do not hesitate to contact me with questions or concerns
[2019-03-18 10:48] VITALS: BP 121/50
[2019-03-18] MEDS: Enoxaparin(*) 40 MG/0.4 ML SYR SUBCUT SCH (11:57)
--- NOTE | 2019-03-19 01:36 | DS ---
CC: Dr. Mendez; Dr. Yusuf Hairston * DISCHARGE SUMMARY: DATE OF ADMISSION: 03/16/19 DATE OF DISCHARGE: 03/18/19 PRIMARY CARE PROVIDER: Dr. Mendez. ATTENDING PROVIDER: Mile Kuhn MD * (DICTATED BY RODY BROWN NP) HOSPITAL COURSE: Please refer to admitting H and P on 03/16/19, but in short this is an 88-year-old female patient with past medical history of end-stage COPD; chronic hypoxic respiratory failure, on 2 L nasal cannula; history of lung cancer, status post upper lobectomy; colon cancer; and hypertension, who presented to the emergency department with EMS services with a 4-day history of chest pain radiating to the upper arms. She describes the pain as a burning sensation. The patient states that she felt like her breathing was getting worse while she was at home and as her breathing became worse, her chest pain began to increase. She also described the feeling as dyspepsia, which she was stating she felt like was from not eating and she was also experiencing increasing fatigue and then progressive shortness of breath. Although, she wears oxygen in the evening and as needed, she was finding that she needed to wear her oxygen round the clock and at higher doses until she ultimately came to the emergency department by EMS services for an evaluation. She did receive nitroglycerin with some relief of her symptoms. In the emergency department, she was found to have elevated troponin. There were some T-wave inversions in the inferior leads on her EKG. She was also retaining some CO2, which is likely her baseline and ultimately she was admitted for NSTEMI. The patient was initially started on therapeutic Lovenox. She was given aspirin and Plavix with metoprolol and amlodipine and started on a statin. Further laboratories were drawn including A1c and lipid profile. Cardiology was consulted in the emergency department who saw the patient the next morning. Because the patient does have advanced COPD and is a cancer survivor, palliative care consult was also involved. The patient did describe that she wanted conservative management only and stated she did not wish to have a stress test or a cardiac catheterization. She also stated she did not wish to have heparin drip or any further treatment with Lovenox. She did, however, agree to medical management with dual antiplatelet therapy, statin, and beta-austin. She was seen in followup with Dr. Yusuf Hairston of Cardiology, who had seen the patient in the past who also evaluated the patient's echocardiogram. Her echo showed her EF to be 55% to 60%. She had some mildly increased wall thickness of the left ventricle. Systolic function was essentially normal. Right ventricle systolic function normal. Trace regurgitation of the mitral valve, mild regurgitation of the tricuspid valve. Pulmonary arteries with peak pressure of 30.8 mmHg. She also had a CTA of the chest showing no pulmonary embolus but was showing moderate to severe emphysema and a stable right thyroid nodule. The patient did have another episode of chest pain while she was on the floor. A repeat EKG was performed and she was administered sublingual nitro with relief of her symptoms. Her EKG did not show any further changes. Her troponin initially on presentation was 2.65. Peak troponin was 3.54 and crested at 2.43. The patient was adamant about being discharged to home as opposed to going to rehab. At that point, recommendations from Cardiology were as follows: The patient would remain on aspirin, Plavix, beta-austin, amlodipine for angina, p.r.n. nitroglycerin and high-dose statin. DISCHARGE DIAGNOSES: 1. Non-ST segment elevation myocardial infarction. 2. 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 3. Chronic hypoxic respiratory failure, on 2.5 L nasal cannula. 4. Hypertension. 5. History of lung cancer with partial lobectomy. 6. History of colon cancer. MEDICATIONS FOR DISCHARGE: Include: 1. Xanax 0.5 mg p.o. b.i.d. 2. Mag-Ox 400 mg p.o. daily. 3. Symbicort 160/4.5 two puffs inhale b.i.d. 4. Artificial tears 1 drop both eyes q.2 hours as needed. 5. DuoNeb 1 neb inhale q.6 hours as needed. 6. Ventolin 2 puffs inhale q.4 hours as needed. 7. Albuterol nebulizer 2.5 mg inhale 3 times a day as needed. New medications: 1. Metoprolol succinate XL 25 mg p.o. daily. 2. Amlodipine 5 mg p.o. daily. 3. Nitroglycerin sublingual tab 0.4 mg sublingual q.5 minutes as needed for chest pain x3. 4. Plavix 75 mg p.o. daily. 5. Atorvastatin 80 mg p.o. daily in the evening. 6. Aspirin 81 mg daily. REVIEW OF SYSTEMS: On the day of discharge, the patient denies any fever, fatigue, or chills. No dizziness, no headache, no chest pain, no shortness of breath, no abdominal pain, no nausea, no vomiting, no urinary complaints. She does have some general weakness at baseline, but no further constitutional complaints. PHYSICAL EXAMINATION: Reveals a frail cachectic woman but in no acute distress. Vital Signs: Blood pressure 121/50, heart rate 91, respiratory rate 20, and O2 saturation 97% on 2 L nasal cannula with a temperature of 97.7. HEENT: The patient is atraumatic and normocephalic. PERRLA. Nonicteric sclerae. Oral mucosa is moist. Tongue is midline. Neck: Supple, nontender. No JVD noted. No thyromegaly appreciated. Cardiovascular: S1, S2 present. No murmurs, gallops, or rubs noted. Rate and rhythm are regular. Lungs are greatly diminished throughout the lung gamble. She has poor aeration on the left with no wheezing noted but diminished throughout most of the lung gamble. Abdomen is soft, nontender, nondistended. Positive bowel sounds in all 4 quadrants. : Deferred. Musculoskeletal: There is no clubbing, no cyanosis, and no pedal edema. She has gross motor and sensation intact. She has a steady gait with assistance with a walker. Neurologic: Grossly intact with no focal deficit. Psychiatric: Cooperative and appropriate. DIAGNOSTIC STUDIES/LAB DATA: WBC is 8.7, RBC is 4.07, hemoglobin 12.5, hematocrit 38, platelets 215. Sodium 138, potassium 3.6, chloride 100, CO2 of 33. BUN 20, creatinine 0.61, GFR 93, glucose 92, hemoglobin A1c 5.7, calcium 9.2, magnesium 2.1. Troponins 3.28, 3.54, 2.43. Total protein 6.5. Albumin 3.6, globulin 2.9, albumin-globulin ratio 1.2. Triglycerides 71, total cholesterol 135, LDL 74, HDL 46.4, and TSH 1.41. Urinalysis negative for any acute infective process. ABG, pH 7.38, CO2 of 57, pO2 of 82, bicarb 30.2. Imaging: Chest and thorax CTA dated 03/16/19, shows no pulmonary emboli, moderate to severe emphysema and with stable right thyroid nodule. Echocardiogram as noted in the body of the document above. DISPOSITION: The patient was discharged to home. She is in stable condition. All questions were answered. The patient stated understanding of her discharge instructions, medications, and followups. FOLLOWUP: The patient is instructed to follow up with Dr. Elmo Mendez on 04/19/19 at 3:20 p.m., Dr. Yusuf Hairston in 1 to 2 weeks, [facility] followup is needed, and [facility] for the aging and meals on wheels, which a referral has been placed. Again, the patient was discharged in a stable condition. TIME SPENT: Forty-five minutes was spent in discharge planning. RODY BROWN NP [id number]/[facility] #: [id number] JEREMIAH
== END 2019-03-18 12:51 | disposition home health service (06) | DRG 281 ==
LOC: ED 23:02 → MEDTELE 03-16 03:31
PROVIDERS: ADMIT Internal Medicine; ATTEND Internal Medicine
DX: I21.4 Non-ST elevation (NSTEMI) myocardial infarction (principal); J96.11 Chronic respiratory failure with hypoxia; Z66 Do not resuscitate; K21.9 Gastro-esophageal reflux disease without esophagitis; I50.9 Heart failure, unspecified; I11.0 Hypertensive heart disease with heart failure; M19.90 Unspecified osteoarthritis, unspecified site; M81.0 Age-related osteoporosis without current pathological fracture; M48.00 Spinal stenosis, site unspecified; R41.0 Disorientation, unspecified; J43.9 Emphysema, unspecified; E04.1 Nontoxic single thyroid nodule; I08.1 Rheumatic disorders of both mitral and tricuspid valves; F41.9 Anxiety disorder, unspecified; R53.82 Chronic fatigue, unspecified; Z88.5 Allergy status to narcotic agent; Z88.2 Allergy status to sulfonamides; Z99.81 Dependence on supplemental oxygen; Z85.038 Personal history of other malignant neoplasm of large intestine; Z85.118 Personal history of other malignant neoplasm of bronchus and lung; Z79.51 Long term (current) use of inhaled steroids; Z79.82 Long term (current) use of aspirin; Z79.02 Long term (current) use of antithrombotics/antiplatelets; Z90.49 Acquired absence of other specified parts of digestive tract; Z85.820 Personal history of malignant melanoma of skin; Z88.8 Allergy status to other drugs, medicaments and biological substances; Z82.49 Family history of ischemic heart disease and other diseases of the circulatory system; Z87.891 Personal history of nicotine dependence; Z90.710 Acquired absence of both cervix and uterus; Z83.79 Family history of other diseases of the digestive system; Z72.89 Other problems related to lifestyle
CPT/HCPCS: 36415; 71275; 80048; 80053; 80061; 80076; 81003; 81015; 82803; 83036; 83735; 83880; 84443; 84484; 85025; 85610; 85730; 86140; 87086; 87641; 93005; 93306; 94640; 99284; A9270-GY; J1650; J2270

== ENCOUNTER 2019-07-04 05:07 | Emergency (ER) | payer MEDICARE, OTHER ==
--- NOTE | 2019-07-04 05:51 | ED ---
Shortness of Breath - HPI Summary HPI Summary: 88-year-old female with significant past medical history of COPD presents to emergency department today complaining of dyspnea for 3 days and trouble managing her care at home. Patient states she uses a oxygen concentrator at home which she feels is not working because the "tubing is too long and it gets kinked." Patient states she has not taken her medications in "months" including her blood pressure medications and antianxiety medications. Patient also states she is not eaten and weeks. Patient states she has home health aides but does not feel they are doing an adequate job assisting her with her ADL's including medication assistance and meals. Patient otherwise has no complaints and feels comfortable in the emergency department. She denies shortness of breath at this time or fever, chest pain, abdominal pain, pain with urination, rash. Patient feels well and would like to be discharged home. Family history and surgical history noncontributory. Pt is A&O x3. - History of Current Complaint Chief Complaint: EDUpperRespComplaint Time Seen by Provider: 07/04/19 05:39 Hx Obtained From: Patient Onset/Duration: Gradual Onset Current Severity: None Dyspnea At: Rest Aggravating Factors: Movement Alleviating Factors: Oxygen Associated Signs & Symptoms: Negative - Allergy/Home Medications Allergies/Adverse Reactions: Allergies Allergy/AdvReac Type Severity Reaction Status Date / Time codeine Allergy Unknown Verified 05/07/18 12:33 Reaction Details hydralazine Allergy Difficulty Verified 05/07/18 12:33 Breathing morphine Allergy Itching Verified 03/16/19 14:08 Sulfa (Sulfonamide Allergy Unknown Verified 05/07/18 12:33 Antibiotics) Reaction Details Home Medications: Home Medications Atorvastatin* [Lipitor 80 MG*] 80 mg PO DAILY 07/04/19 [History Confirmed ] Diclofenac 1% GEL (NF) [Voltaren 1% GEL (NF)] 1 applic TOPICAL QID 07/04/19 [ History Confirmed 07/04/19] Fluticasone NASAL SPRAY 50MCG* [Flonase NASAL SPRAY 50MCG*] 1 spray BOTH NARES BID 07/04/19 [History Confirmed 07/04/19] Saline NASAL SPRAY 0.65%* [Sodium Chloride 0.65% Nasal [place]*] 2 spray BOTH NARES Q4H PRN 07/04/19 [History Confirmed 07/04/19] amLODIPine TAB* [Norvasc 5 mg TAB*] 10 mg PO DAILY 07/04/19 [History Confirmed 07/04/19] PMH/Surg Hx/FS Hx/Imm Hx Endocrine/Hematology History: Denies: Hx Anticoagulant Therapy, Hx Blood Disorders Cardiovascular History: Reports: Hx Hypertension - takes atenolol only Denies: Hx Aneurysm Comment Only: Hx Congestive Heart Failure - Elevated BNP Respiratory History: Reports: Hx Chronic Obstructive Pulmonary Disease (COPD) - 2.5L at night and PRN - emphysema per pt, Hx Lung Cancer - 1988 with lobectomy, Other Respiratory Problems/Disorders - HX OF LUNG CA 1988 Denies: Hx Asthma, Hx Pulmonary Embolism GI History: Reports: Other GI Disorders - colon CA Musculoskeletal History: Reports: Hx Arthritis, Hx Osteoporosis Denies: Hx Rheumatoid Arthritis, Hx Scoliosis Sensory History: Reports: Hx Contacts or Glasses Denies: Hx Hearing Aid, Hx Hearing Problem, Other Sensory Impairments Opthamlomology History: Reports: Hx Contacts or Glasses Denies: Other Sensory Impairments Neurological History: Reports: Other Neuro Impairments/Disorders - SPINAL STENOSIS Denies: Hx Headaches Psychiatric History: Reports: Hx Anxiety - Cancer History Cancer Type, 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 CA, Lung CA, melanoma, basal cell carcinoma - Surgical History Surgery Procedure, Year, and Place: upper L lung lobectomy, colectomy, breast implants, HYSTERECTOMY - Immunization History Immunizations Up to Date: Yes Infectious Disease History: Unable to Obtain/Confirm Infectious Disease History: Denies: Traveled Outside the [place] in Last 30 Days - Family History Known Family History: Positive: Other - GERD - Social History Alcohol Use: Weekly Alcohol Amount: one beer with dinner Hx Substance Use: No Substance Use Type: Reports: None Hx Tobacco Use: Yes - hasn't smoked in yrs - no 2nd hand smoke exp Smoking Status (MU): Former Smoker Length of Time of Smoking/Using Tobacco: 25+ years Review of Systems Constitutional: Negative Eyes: Negative ENT: Negative Cardiovascular: Negative Positive: Shortness Of Breath Gastrointestinal: Negative Genitourinary: Negative Musculoskeletal: Negative Skin: Negative Neurological: Negative Positive: Anxious All Other Systems Reviewed And Are Negative: Yes Physical Exam - Summary Physical Exam Summary: Patient is resting comfortable hospital bed with no evidence of accessory muscle use or labored breathing. Patient speaks in full unbroken sentences. There is no audible stridor or wheezing noted. Lungs are clear to auscultation however lung sounds are diminished throughout the precordium. Triage Information Reviewed: Yes Vital Signs On Initial Exam: Initial Vitals Temp Pulse Resp BP Pulse Ox 98.3 F 106 25 135/88 100 07/04/19 05:13 07/04/19 05:13 07/04/19 05:13 07/04/19 05:13 07/04/19 05:13 Vital Signs Reviewed: Yes Appearance: Positive: Well-Appearing, No Pain Distress, Well-Nourished Skin: Positive: Warm, Skin Color Reflects Adequate Perfusion Eyes: Positive: EOMI, CHELO ENT: Positive: Hearing grossly normal Respiratory/Lung Sounds: Positive: Clear to Auscultation, Breath Sounds Present , Decreased Breath Sounds Cardiovascular: Positive: RRR, S1, S2 Bowel Sounds: Positive: Present Musculoskeletal: Positive: Strength/ROM Intact Neurological: Positive: Sensory/Motor Intact, Alert, Oriented to Person Place, Time, Normal Gait, Speech Normal Psychiatric: Positive: Affect/Mood Appropriate, Anxious AVPU Assessment: Alert Procedures - Sedation Patient Received Moderate/Deep Sedation with Procedure: No Diagnostics - Vital Signs Vital Signs Temp Pulse Resp BP Pulse Ox 07/04/19 05:13 98.3 F 106 25 135/88 100 - Laboratory Lab Statement: Any lab studies that have been ordered have been reviewed, and results considered in the medical decision making process. Course/Dx - Course Course Of Treatment: Patient was evaluated in the emergency department today for shortness of breath. After physical exam and noting vital signs and history was apparent the patient was here for psychosocial complaint rather than shortness of breath. She is currently comfortable hospital stretcher on 3 L oxygen oxygen saturation 100%. She has no signs of labored breathing or accessory muscle use. Patient received social work consult as she stated she is having difficulty managing at home alone and with her current health aides. [facility] medical referral coordinator, Zenaida was consulted and established patient with [facility] as well as access to home health aides and social work. Patient was informed of this plan and agrees. - Diagnoses Differential Diagnosis/HQI/PQRI: Positive: Airway Obstruction, COPD Exacerbation , Other - URI, psychosocial complaint Provider Diagnoses: Shortness of breath Discharge ED - Sign-Out/Discharge Documenting (check all that apply): Patient Departure - Discharge Plan Condition: Stable Disposition: HOME Patient Education Materials: Dyspnea (ED) Referrals: [facility] [Other] [facility] [Outside] Elmo Mendez MD [Primary Care Provider] - 3 Days Additional Instructions: You were seen in the emergency department today with shortness of breath. It appears you have no illness requiring intervention at this time. In order to manage your COPD at home please continue to take your at home prescribed medications. If you have run out of these please see your primary care provider for more. You have your home oxygen concentrator which you may use for your shortness of breath. Please go to the store and purchase a pulse oximeter to measure your oxygen levels and titrate your oxygen concentrator as needed to maintain an adequate oxygen level above 94%. Please follow-up with your primary care physician in 3 days for further evaluation and management. Please return to the emergency department immediately if you develop any new or worsening symptoms. Our social workers have set up with [facility] as well as access to a new home health aides and social work which may be used to improve your life at home. - Billing Disposition and Condition Condition: STABLE Disposition: Home - Attestation Statements Provider Attestation: I was available for consult. This patient was seen by the [facility]. The patient was not presented to, seen by, or examined by me. Geovanny Jane MD
[2019-07-04] MEDS ORDERED: Metoprolol Succinate XL TAB* 25 MG PO ONE (06:19)
[2019-07-04] MEDS ORDERED: amLODIPine TAB* 5 MG PO ONE (06:19)
[2019-07-04] MEDS ORDERED: Clopidogrel TAB* 75 MG PO ONE (06:20)
[2019-07-04] MEDS ORDERED: Atorvastatin* 80 MG TAB PO ONE (06:20)
[2019-07-04] MEDS ORDERED: ALPRAZolam TAB* 0.5 MG PO ONE (06:20)
[2019-07-04] MEDS ORDERED: Magnesium Oxide TAB* 400 MG PO ONE (06:21)
[2019-07-04 13:57] VITALS: BP 162/99
== END 2019-07-04 14:49 | disposition home or self-care (01) ==
LOC: ED 05:07
DX: R06.02 Shortness of breath (principal); I10 Essential (primary) hypertension; J44.9 Chronic obstructive pulmonary disease, unspecified; Z99.81 Dependence on supplemental oxygen; Z85.118 Personal history of other malignant neoplasm of bronchus and lung; Z85.038 Personal history of other malignant neoplasm of large intestine; Z88.5 Allergy status to narcotic agent; Z88.2 Allergy status to sulfonamides; Z88.8 Allergy status to other drugs, medicaments and biological substances; Z87.891 Personal history of nicotine dependence
CPT/HCPCS: 99285; A9270-GY

== ENCOUNTER 2019-07-11 08:15 | Inpatient (IN) | payer MEDICARE, OTHER ==
[2019-07-11] MEDS ORDERED: LORazepam TAB(*) 0.5 MG PO ONE (08:28)
--- NOTE | 2019-07-11 08:34 | ED ---
Shortness of Breath - HPI Summary HPI Summary: This pt is an 88 Y/O F presenting to [facility] with a CC of SOB due to anxiety attacks. She states that she ran out of Xanax 4 days ago and has made multiple EMS calls over the past 3 days. She refuses to see her PCP and is unable to refill her Xanax prescription. Her anxiety increased and had an episode of SOB. She refused transfer to [facility] on her last visit and was able to be calmed down with a Duoneb. Today her O2 stat was too low after a treatment. She states that she has been trying to go see her doctor and states that she planned on calling her today. She states that the last time she had her original prescription at home was less than a month ago. The Xanax helps her to avoid hyperventilating, which she states causes her to become SOB. She states that this episode started at 0600 this morning due to her anxiety. She took her albuterol inhaler with good effect. She states that she has been having a cough and CP due to her hyperventilation. She denies any fevers, chills, headaches, and N/V. She has a PMHx of DVTs, COPD, and is a DNR. Last time she was here for SOB she was here for a psychosocial complaint and was seen by social working who set up meals on wheels and a home health aide. Pt was admitted in May 2019 for an NSTEMI. Cardiology was consulted and she had an Echo with an EM of 55%. CTA did not show a PE. Sent home with plavix , ASA, beta austin and amlodipine. - History of Current Complaint Chief Complaint: EDShortnessOfBreath Time Seen by Provider: 07/11/19 08:19 Hx Obtained From: Patient Onset/Duration: Sudden Onset, Lasting Hours - 2 and a half, Still Present Timing: Constant Dyspnea At: Rest Aggravating Factors: Other - Anxiety Alleviating Factors: Bronchodilators - small relief per pt Associated Signs & Symptoms: Negative - fevers, chills, headaches, and N/V., Chest Pain Unrelated to Cough - states CP due to hyperventalation Related History: Similar Episode - EMS states they have been called to her house multiple times this weekend. Last time she was here for SOB she was here for a psychosocial complaint and was seen by social working who set up meals on wheels and a home health aide. - Allergy/Home Medications Allergies/Adverse Reactions: Allergies Allergy/AdvReac Type Severity Reaction Status Date / Time codeine Allergy Unknown Unknown Verified 07/11/19 11:53 Reaction Details hydralazine Allergy Unknown Difficulty Verified 07/11/19 11:53 Breathing morphine Allergy Unknown Itching Verified 07/11/19 11:53 Sulfa (Sulfonamide Allergy Unknown Unknown Verified 07/11/19 11:53 Antibiotics) Reaction Details Home Medications: Home Medications amLODIPine TAB* [Norvasc 5 mg TAB*] 5 mg PO DAILY 07/11/19 [History Confirmed ] PMH/Surg Hx/FS Hx/Imm Hx Previously Healthy: Yes Endocrine/Hematology History: Denies: Hx Anticoagulant Therapy, Hx Blood Disorders Cardiovascular History: Reports: Hx Hypertension - takes atenolol only Denies: Hx Aneurysm Comment Only: Hx Congestive Heart Failure - Elevated BNP Respiratory History: Reports: Hx Chronic Obstructive Pulmonary Disease (COPD) - 2.5L at night and PRN - emphysema per pt, Hx Lung Cancer - 1988 with lobectomy, Other Respiratory Problems/Disorders - HX OF LUNG CA 1988 Denies: Hx Asthma, Hx Pulmonary Embolism GI History: Reports: Other GI Disorders - colon CA Musculoskeletal History: Reports: Hx Arthritis, Hx Osteoporosis Denies: Hx Rheumatoid Arthritis, Hx Scoliosis Sensory History: Reports: Hx Contacts or Glasses Denies: Hx Hearing Aid, Hx Hearing Problem, Other Sensory Impairments Opthamlomology History: Reports: Hx Contacts or Glasses Denies: Other Sensory Impairments Neurological History: Reports: Other Neuro Impairments/Disorders - SPINAL STENOSIS Denies: Hx Headaches Psychiatric History: Reports: Hx Anxiety - Cancer History Cancer Type, 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 CA, Lung CA, melanoma, basal cell carcinoma Hx Chemotherapy: No Hx Radiation Therapy: No - Surgical History Surgical History: Yes Surgery Procedure, Year, and Place: upper L lung lobectomy, colectomy, breast implants, HYSTERECTOMY - Immunization History Immunizations Up to Date: Yes Infectious Disease History: No Infectious Disease History: Denies: Traveled Outside the [place] in Last 30 Days - Family History Known Family History: Positive: Other - GERD - Social History Occupation: Retired Lives: Alone Alcohol Use: Weekly Alcohol Amount: one beer with dinner Hx Substance Use: No Substance Use Type: Reports: None Hx Tobacco Use: Yes - hasn't smoked in yrs - no 2nd hand smoke exp Smoking Status (MU): Former Smoker Length of Time of Smoking/Using Tobacco: 25+ years Review of Systems Negative: Fever, Chills Positive: Chest Pain - due to hyperventalation Positive: Shortness Of Breath, Cough Negative: Vomiting, Nausea Negative: Headache Positive: Anxious All Other Systems Reviewed And Are Negative: Yes Physical Exam - Summary Physical Exam Summary: Constitutional: Well-developed, Well-nourished, Alert. (-) Distressed Elderly woman Skin: Warm, Dry HENT: Normocephalic; Atraumatic Eyes: Conjunctiva normal Neck: Musculoskeletal ROM normal neck. (-) JVD, (-) Stridor, (-) Nuchal rigidity Cardio: Rhythm regular, rate normal, Heart sounds normal; Intact distal pulses; Radial pulses are 2+ and symmetric. (-) Murmur Pulmonary/Chest wall: Tachypneic (-) Respiratory distress, (-) Wheezes, (-) Rales Abd: Soft, (-) tenderness, (-) Distension, (-) Guarding, (-) Rebound Musculoskeletal: (-) Edema Lymph: (-) Cervical adenopathy Neuro: Alert, Oriented x3 Psych: Anxious Triage Information Reviewed: Yes Vital Signs On Initial Exam: Initial Vitals Temp Pulse Resp BP Pulse Ox 97.1 F 111 24 162/78 98 07/11/19 08:16 07/11/19 08:16 07/11/19 08:16 07/11/19 08:16 07/11/19 08:16 Vital Signs Reviewed: Yes Procedures - Sedation Patient Received Moderate/Deep Sedation with Procedure: No Diagnostics - Vital Signs Vital Signs Temp Pulse Resp BP Pulse Ox 07/11/19 08:16 97.1 F 111 24 162/78 98 - Laboratory Result Diagrams: 07/11/19 08:39 07/11/19 08:39 Lab Statement: Any lab studies that have been ordered have been reviewed, and results considered in the medical decision making process. - Radiology CXR Radiology Interpretation Completed By: Radiologist Summary of Radiographic Findings: Hyperinflated lung gamble with calcified breast implants. No definite. pneumonia is identified. ED physician has reviewed this report. - EKG 0840 Cardiac Rate: Tachycardia - 106 BPM EKG Rhythm: Sinus Tachycardia ST Segment: Normal Ectopy: None EKG Comparison: No Significant Change - 03/04/2019 Summary of EKG Findings: An EKG at 0840 reveals normal sinus tachycardia 106, nml axis, nml intervals. No STEMI. No acute changes from 03/04/2019. Dr. Foster has reviewed and interpreted this EKG at 07/11/2019 0845. Re-Evaluation - Re-Evaluation First Eval Re-Evaluation Time: 11:37 Change: Worse Comment: Second Troponin was .11. Plan to admit for angina. Course/Dx - Course Course Of Treatment: 88-year-old female with a history of COPD, LAD, who presents with shortness of breath that she relates her anxiety. - VS initially normal for mild tachycardia likely secondary to recent albuterol use. Lungs clear. Patient reports chest pain when she hyperventilates, denies exertional chest pain or shortness of breath. -patient reports being out of her anxiety meds for several months, she has a follow-up with her primary care doctor. Patient was seen several days ago for similar. We'll check labs including CBC, CMP, troponin and EKG. Chest x-ray. Will give 0.5 mg ativan. Chest Pain DDX: The patient is well appearing, with stable vitals. Given the patient's clinical presentation, highest on differential is ACS - initial trop 0.05 --> 0.11. Although less likely, differential also includes the following: -- Pneumothorax: Equal breath sounds, story inconsistent since gradual onset of symptoms. CXR shows no evidence of pneumothorax. Unlikely. --Cardiac tamponade : The history and physical are not concerning for tamponade. No Pulsus Paradoxus , no tachypnea. Unlikely. --Aortic dissection: The patient does not describe the classical tearing chest pain radiating into the back, and the CXR does not show mediastinal widening or other signs of aortic dissection. Unlikely. - Diagnoses Provider Diagnoses: NSTEMI (non-ST elevated myocardial infarction), SOB (shortness of breath) - Physician Notifications Discussed Care of Patient With: Irene Eckert Time Discussed With Above Provider: 12:25 Instructed by Provider To: Admit As Inpatient Admit/Transition Orders Completed By ED Provider: Yes Discharge ED - Sign-Out/Discharge Documenting (check all that apply): Patient Departure - admitted - Discharge Plan Condition: Stable Disposition: ADMITTED TO [facility] Referrals: Elmo Mendez MD [Primary Care Provider] - - Billing Disposition and Condition Condition: STABLE Disposition: Admitted to [facility] - Attestation Statements Document Initiated by Hector: Yes Documenting Scribe: Branden Hackett Provider For Whom Hector is Documenting (Include Credential): Ayad Foster MD Scribe Attestation: Branden Demarco, scribed for Ayad Foster MD on 07/11/19 at 1256. Scribe Documentation Reviewed: Yes Provider Attestation: The documentation as recorded by the Branden luciano accurately reflects the service I personally performed and the decisions made by , Ayad Foster MD Status of Scribe Document: Viewed
[2019-07-11 08:46] LABS: ABS Eosinophils 0.1 10^3/ul (0-0.6); ABS Monocytes 0.8 10^3/ul (0-0.8); Eosinophil % 1.2 %; Hematocrit 38 % (35-47); Hemoglobin 12.6 g/dL (12.0-16.0); Lymphocyte % 11.1 %; Mean Corpuscular HGB Conc 33 g/dL (31-36); Mean Corpuscular Hemoglobin 31 pg (27-31); Mean Corpuscular Volume 94 fL (80-97); Mean Platelet Volume 9.3 fL (7.4-10.4); Platelet Count 237 10^3/uL (150-450); Red Blood Count 4.05 10^6 /uL (3.70-4.87); Red Cell Distribution Width 15 % (10-15); White Blood Count 8.9 10^3/uL (3.5-10.8)
[2019-07-11 09:06] LABS: ALT 12 U/L (7-52); AST 16 U/L (13-39); Albumin 3.8 g/dL (3.2-5.2); Albumin/Globulin Ratio 1.1 (1-3); Alkaline Phosphatase 57 U/L (34-104); Anion Gap 7 mmol/L (2-11); BUN/Creatinine Ratio 23.8 (8-20); Blood Urea Nitrogen 15 mg/dL (6-24); CO2 Carbon Dioxide 32 mmol/L (22-32); Calcium 9.3 mg/dL (8.6-10.3); Chloride 97 mmol/L (101-111); EGFR African American 108.4 (>60); EGFR Non-African American 89.6 (>60); Globulin 3.4 g/dL (2-4); Glucose 126 mg/dL (70-100); Potassium 3.5 mmol/L (3.5-5.0); Sodium 136 mmol/L (135-145); Total Protein 7.2 g/dL (6.4-8.9)
[2019-07-11 09:15] LABS: Troponin I 0.05 ng/mL (<0.03)
[2019-07-11] MEDS ORDERED: NS 0.9% 1000 ML** 1,000 ML IV ONE (10:41)
[2019-07-11 11:35] LABS: Troponin I 0.11 ng/mL (<0.03)
[2019-07-11] MEDS ORDERED: Aspirin TAB* 325 MG PO ONE (12:58)
[2019-07-11] MEDS ORDERED: Aspirin 81 mg CHEW TAB* 81 MG TAB.CHEW PO ONE (13:06)
[2019-07-11] MEDS ORDERED: Acetaminophen TAB* 325 MG PO PRN (13:20)
[2019-07-11] MEDS ORDERED: Nitroglycerin TAB 0.4 MG* 0.4 MG TAB SL PRN (13:36)
[2019-07-11] MEDS ORDERED: Saline NASAL SPRAY 0.65%* BTL BOTH NARES PRN (13:36)
[2019-07-11] MEDS ORDERED: Albuterol HFA INHALER* 8 gm MDI INH PRN (13:36)
[2019-07-11] MEDS ORDERED: Albuterol 2.5 MG/3 ML NEB.SOL* (0.083%) INH PRN (13:36)
[2019-07-11] MEDS ORDERED: Enoxaparin(*) 40 MG/0.4 ML SYR SUBCUT SCH (14:00)
[2019-07-11 15:39] LABS: Troponin I 0.18 ng/mL (<0.03)
[2019-07-11] MEDS ORDERED: Iohexol 350* (CONTRAST) 500 ML MDV IV ONE (15:48)
--- NOTE | 2019-07-11 15:55 | HP ---
HISTORY AND PHYSICAL: DATE OF ADMISSION: 07/11/19 PRIMARY CARE PROVIDER: Elmo Mendez MD. ATTENDING PROVIDER: Dr. Eckert * (DICTATED BY DANIEL BEDOLLA) CHIEF COMPLAINT: Shortness of breath. HISTORY OF PRESENT ILLNESS: Ms. Tucker is an 88-year-old female with past medical history of NSTEMI, diagnosed on 03/18/19, receiving medical management; hypertension; COPD with 2.5 L of O2 at bedtime; history of lung and colon cancer , who presented to the ER today with complaints of shortness of breath. She states that she typically has shortness of breath but it has been worse than usual for the last approximately 1 month. She notes that DuoNeb relieves her shortness of breath. The patient notes that she typically become short of breath and then tends to hyperventilate, and again this is relieved with DuoNeb. She complains of chest pain that started this morning after an episode of hyperventilation, although she does note that she does have intermittent chest pain for some time, although she is unable to specify how long. She does complain of tenderness to palpation in the mid sternal area where her chest pain is. She reports no change in pain with deep breathing. She states that she developed cough yesterday that was nonproductive. She denies fever, but does complain of chills. She has occasional palpitations with hyperventilation. The patient complains of occasional dysuria as well as urgency and retention. She has some discomfort in the lower abdominal region. It is important to note that the patient was diagnosed with an NSTEMI on . At that time, the patient opted for conservative management and refused stress testing or cardiac catheterization. At this time, the patient is unsure of whether she would do stress testing or cardiac cath, but she is "leaning towards noninvasive." In the ER, the patient received a full workup. She was noted to have tachycardia and tachypnea as well as some mild hypoxia. Blood work was obtained and showed a CBC that was within normal limits. CMP was grossly unremarkable. The patient did have troponin of 0.05 that raised to 0.11. EKG showed a heart rate of [address] depression in leads II and V4 typically new. Chest x-ray shows hyperinflation without definite pneumonia. In the ER, the patient was given aspirin 325 mg, lorazepam 0.5, and 1 L of normal saline. The hospitalist team was asked to evaluate the patient for admission. PAST MEDICAL HISTORY: 1. NSTEMI 03/18/19. 2. Hypertension. 3. Hyperlipidemia. 4. COPD, requiring 2.5 L of oxygen at bedtime. 5. Chronic hypoxic respiratory failure. 6. History of lung cancer, status post lobectomy 1988. 7. History of colon cancer. 8. Spinal stenosis. 9. Anxiety. PAST SURGICAL HISTORY: 1. Upper lung lobectomy. 2. Colectomy. 3. Hysterectomy. 4. Bilateral breast implants. HOME MEDICATIONS: 1. Albuterol nebulizer 1.25 mg inhalation t.i.d. p.r.n. 2. Albuterol HFA inhaler 2 puff inhalation q.4 hours p.r.n. 3. Alprazolam 0.5 mg p.o. b.i.d. 4. Amlodipine 7.5 mg p.o. daily. 5. Atorvastatin 80 mg p.o. daily. 6. Symbicort 2 puff inhalation b.i.d. 7. Clopidogrel 75 mg p.o. daily. 8. Diclofenac 1 application topically q.i.d. 9. Fluticasone nasal spray 1 spray to both nares b.i.d. 10. Magnesium oxide 400 mg p.o. daily. 11. Metoprolol succinate 25 mg p.o. daily. 12. Nitroglycerin 0.4 mg sublingual q.5 minutes p.r.n. 13. Saline nasal spray 2 sprays to both nares q.4 hours p.r.n. ALLERGIES: CODEINE, HYDRALAZINE, MORPHINE, SULFA. FAMILY HISTORY: Father had a history of MS and CVA. SOCIAL HISTORY: The patient quit smoking approximately 35 years ago. Prior to that, she smoked 1 pack per day for approximately 25 years. She drinks approximately 1 alcoholic beverage per week. 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 In the event that she is unable to make her own medical decision, she has appointed her daughter Rita, to be her surrogate decision maker. REVIEW OF SYSTEMS: A 14-point review of systems has been performed and all the pertinent positives and negatives are in the HPI. All other systems are negative. PHYSICAL EXAMINATION GENERAL: Ms. Tucker is an ambulatory, elderly white woman who is sitting up in bed. She appears to have some mild increased work of breathing. She is on 2 L of O2 nasal cannula. HEENT: PERRL. EOMI. Visual gamble grossly intact. Sclerae nonicteric without injection. Moderately hard of hearing. Oral mucous membranes are moist. There are no lesions. Oropharynx is clear. The tongue is at midline. Palate elevates symmetrically. PULMONARY: Symmetrical chest expansion without use of accessory muscles. There are diminished breath sounds throughout bilateral lung gamble without wheeze, rhonchi, or rales. CARDIOVASCULAR: Sinus tachycardia. S1, S2 present without murmurs, rubs, clicks, or gallops. There is no JVD or peripheral edema. ABDOMEN: Flat. Bowel sounds in all quadrants. Soft mildly tender to palpation throughout. Negative for CVA tenderness. MUSCULOSKELETAL: Full range of motion without pain or deformities. Gita sign negative. NEUROLOGIC: The patient is awake. She is alert and oriented x3, although she appears mildly confused at times. Cranial nerves II through XII are grossly intact. She is able to move all of her extremities. Motor strength is 5/5 bilaterally in the upper and lower extremities. DIAGNOSTIC STUDIES AND LABORATORY DATA: WBC 8.9, hemoglobin 12.6, hematocrit 39, MCV 94. Sodium 136, potassium 3.5, chloride 97, BUN 15, creatinine 0.63, BUN /creatinine 23.8, glucose 126. Troponin 0.05, 0.11. EKG: Rate [address] depression in leads II, V4. Chest x-ray, impression: Hyperinflated lung gamble with calcified breast implants. No definite pneumonia is identified. ASSESSMENT AND PLAN: Ms. Tucker is an 88-year-old female with a past medical history of non-ST elevation myocardial infarction on 03/18/19, hypertension, hyperlipidemia, chronic obstructive pulmonary disease, chronic hypoxic respiratory failure, and anxiety, who presented to the ER today with complaints of shortness of breath and was found to have associated tachycardia, tachypnea, and elevated troponin. The patient will be admitted for: 1. Elevated troponin. The patient does have a history of non-ST elevation myocardial infarction 03/18/19. At this time, an EKG was performed and showed a tachycardic rate with ST depressions in lead II and V4. Troponins continued to elevate with a high of 0.11 currently. At this time, we will continue the patient's aspirin, clopidogrel, metoprolol, and nitroglycerin. We will continue to trend troponins. We will repeat an EKG in the morning. We will likely get Cardiology involved, although the patient appears to be leaning towards noninvasive measures at this point. Differentials include true ischemia versus demand ischemia. Started on full dose of Lovenox at this time. Cardiology will consult on patient. 2. Shortness of breath. The patient has shortness of breath, tachycardia, tachypnea, supplemental oxygen requirements, and cough. She does not have any other signs of pneumonia including no leukocytosis or fever. She appeared to have tachycardia prior to DuoNeb that were received en route to the hospital. CTA of the chest will be ordered. Her shortness of breath could potentially be due to anxiety. 3. Urinary symptoms. The patient reports occasional dysuria with urgency and retention. We will obtain a urinalysis. 4. History of non-ST elevation myocardial infarction. Continue metoprolol, nitroglycerin, clopidogrel, and aspirin. 5. Hypertension. Continue amlodipine, metoprolol. 6. Chronic obstructive pulmonary disease. The patient does not appear to be in exacerbation. Continue Ventolin inhaler and Symbicort. Will add on DuoNeb p.r.n. 7. Hyperlipidemia. Continue atorvastatin. 8. Anxiety. Continue alprazolam. 9. DVT prophylaxis: According to DVT risk assessment, the patient scores 3 placing her at high risk. She has been started on Lovenox full strength. 10. Code status: DNR. TIME SPENT: Approximately 60 minutes was spent on this admission, greater than half that time was spent [id number] with the patient obtaining history, performing physical, and reviewing the plan of care. The case has been discussed with my attending Dr. Eckert, who is in agreement with the plan of care. DANIEL BEDOLLA [id number]/[facility] #: [id number] MTDD
[2019-07-11 16:44] LABS: Urine Appearance Clear; Urine Bilirubin Negative (Negative); Urine Blood Negative (Negative); Urine Color Yellow; Urine Glucose Negative (Negative); Urine Ketones Trace (Negative); Urine Nitrite Negative (Negative); Urine Protein 2+(100 mg/dL) (Negative); Urine Urobilinogen Negative (Negative)
[2019-07-11 16:48] LABS: Urine Bacteria Absent (Absent); Urine Red Blood Cell Absent (Absent); Urine White Blood Cell Trace(0-5/hpf) (Absent)
[2019-07-11] MEDS: Enoxaparin(*) 60 MG/0.6 ML SYR SUBCUT SCH (17:12)
[2019-07-11 17:48] LABS: Troponin I 0.26 ng/mL (<0.03)
[2019-07-11] MEDS: Albuterol/Ipratropium NEB.SOL* Albuterol 2.5 MG/Ipratropium 0.5 MG 3 ML INH PRN (18:24)
[2019-07-11] MEDS: ALPRAZolam TAB* 0.5 MG PO SCH (20:16)
[2019-07-11] MEDS: Mometasone/Formoter 200/5 MDI INH SCH (20:17)
[2019-07-11] MEDS: Fluticasone NASAL SPRAY 50MCG* 16 gm SPRAY BTL BOTH NARES SCH (20:17)
[2019-07-12] MEDS: Enoxaparin(*) 60 MG/0.6 ML SYR SUBCUT SCH ×2 (03:36→14:53)
[2019-07-12] MEDS ORDERED: amLODIPine TAB* 5 MG PO SCH ×2 (09:00)
[2019-07-12] MEDS: ALPRAZolam TAB* 0.5 MG PO SCH ×3 (09:14→20:45)
[2019-07-12] MEDS: Clopidogrel TAB* 75 MG PO SCH (09:14)
[2019-07-12] MEDS: Magnesium Oxide TAB* 400 MG PO SCH (09:14)
[2019-07-12] MEDS: Atorvastatin* 80 MG TAB PO SCH (09:15)
[2019-07-12] MEDS: Aspirin EC TAB* 81 MG TAB.EC PO SCH (09:15)
[2019-07-12] MEDS: Fluticasone NASAL SPRAY 50MCG* 16 gm SPRAY BTL BOTH NARES SCH ×2 (09:16→20:34)
[2019-07-12] MEDS: Metoprolol Succinate XL TAB* 25 MG PO SCH (09:16)
[2019-07-12] MEDS ORDERED: amLODIPine TAB* 5 MG PO ONE (09:30)
[2019-07-12] MEDS: Benzonatate CAP* 100 MG PO SCH ×3 (10:02→20:34)
[2019-07-12] MEDS: Mometasone/Formoter 200/5 MDI INH SCH ×2 (10:11→21:22)
[2019-07-12 10:57] LABS: Troponin I 0.19 ng/mL (<0.03)
--- NOTE | 2019-07-12 11:56 | CONS ---
CONSULTATION REPORT: DATE OF CONSULT: 07/12/19 ATTENDING PHYSICIAN: Dr. Anshul Mendosa (dictated by Lizz Mosley, MEENA). PRIMARY PHYSICIAN: Dr. Mendez. PRIMARY CERTIFIED INDOOR ENVIRONMENTALIST: Historically, Dr. Yusuf Hairston. PRIMARY ROOF PAINTER: Historically, Dr. Garcia. CHIEF COMPLAINT: Chest pain, increased shortness of breath, sputum production, and weakness. HISTORY OF PRESENT ILLNESS: This is a pleasant 88-year-old female patient with a notable history of COPD, on oxygen therapy; lung cancer; melanoma; hypertension; colon cancer with prior history of NSTE ME February of 2019, treated medically at the discretion of the patient. The patient presented to [facility] on 07/11/19 with ongoing complaints of intermittent chest pressure, increased sh ortness of breath, and sputum production. The patient had basic blood work obtained. She had tropon in elevation, thus was admitted to [address] [place] [address] for chest pain, rule out ACS. We were asked to see the new mccarthy in consultation. The patient has had intermittent chest pressure and tightness located sternal ly, states that it is exacerbated with coughing and she has also noted increased shortness of breath over the past 7 days. In the past, she was admitted February of 2019 due to weakness and NSTEMI. Troponin at that time peaked at 3.29. She opted for conservative medical management and is listed as a DNR. She has not followed up in our practice since that admission. She reports compliance with m edications. In conversation, the patient is still adamant about pursuing conservative medical manage ment and is not interested in pursuing any invasive procedures or rescinding her DNR status. She is c urrently rating chest pressure 3/10. Her morning medications including amlodipine were just administ ered. She denies dizziness, syncope, palpitations, edema. Does report shortness of breath, increase d cough and chest pressure. Last echocardiogram according to our medical records was 03/16/19; per report LVEF 55% to 60% with gr anatoly 1 diastolic dysfunction, trace mitral insufficiency, mild tricuspid insufficiency, right ventricu lar systolic pressure was 30.8 mmHg. PAST MEDICAL HISTORY: 1. COPD requiring continuous oxygen. 2. Lung cancer. 3. Melanoma. 4. Hypertension. 5. Colon cancer. 6. Anxiety. 7. NSTEMI February of 2019. PAST SURGICAL HISTORY: Includes:, 1. Esophageal dilatation. 2. Right upper lobectomy. 3. Colectomy. 4. 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 MEDICATIONS: Per admission med rec. ALLERGIES: Listed include CODEINE, HYDRALAZINE, SULFA; reactions unknown. FAMILY HISTORY: Mother at the age of 98 due to old age. Father at the age of 88 due to co ronary artery disease . SOCIAL HISTORY: The patient is a DNR. She resides at home. She has a care management specialist who lives in [facility] ent below her. She denies alcohol or drug use. She is a remote tobacco user, quit 50 years ago. Nataliia baum is . Her daughter, Zach Arriaga, lives in [place] and is her healthcare proxy. REVIEW OF SYSTEMS: All systems have been reviewed and otherwise negative except as above mentioned i n HPI. PHYSICAL EXAM: Vital Signs: Temperature 97.9, pulse 79, respirations 16, oxygenation 100% on 2 L na suma cannula, blood pressure 118/65. General: The patient is sitting in a tripod position, short of breath upon entering room, actively coughing. She appears tachypneic, frail, but is pleasant. HEENT : Head is atraumatic, normocephalic. Oral mucosa is moist. Tongue is midline. Nasal cannula oxyge n is in place. Neck: Supple. Trachea midline. No JVD. No carotid bruits. Cardiac: Normal S1, S 2. Regular rate and rhythm. No murmur, rub or gallop. Lungs: Auscultated posteriorly, severely di minished throughout with inspiratory wheezing noted. /GI: Abdomen is soft, nontender, nondistende d. Normoactive bowel sounds x4. Extremities: No edema. No clubbing. No cyanosis. Skin: Ecchymosi s noted surrounding right antecubital peripheral IV line. Otherwise, no jaundice or pallor noted. DIAGNOSTIC STUDIES/BLOOD WORK: White count 8.9, hemoglobin 12.6, hematocrit 38, platelets 237. Sodi um 136, potassium 3.5, chloride 97, carbon dioxide 32, creatinine 0.63. Troponin #1, 0.05. Troponin #2, 0.11. Troponin #3, 0.18. Troponin #4, 0.26. Chest/thoracic CTA: Per radiology report, no definitive evidence of PE noted. Emphysematous changes with chronic scarring in the lung bases. The aorta demonstrates ectatic, atherosclerotic. No eviden ce of aneurysmal dilatation or aortic dissection. ECG 07/12/19: Sinus rhythm, rate [address] depression noted V1 through V3. Appears t o have minimal ST segment elevation, compared to prior EKG 07/11/19. ASSESSMENT AND PLAN: 1. Non-ST segment elevation myocardial infarction. The patient reports 3/10 chest pain provoked wit h cough and shortness of breath. Troponin has not peaked. Last isoenzyme was 0.26. She has inferol ateral minimal ST-segment depression with minimal anterior ST-segment elevation compared to 07/11/19 ECG. She was given morning medications. We will reassess chest pain in the near future and consider adding isosorbide mononitrate to medication regimen. At this current time, I would recommend contin uing therapeutic Lovenox until troponin peaks and is trending down. I reviewed at length with the pat ient and primary team present options in regards to continuing conservative medical management, which is historically what opted for during her admission in February with NSTEMI versus proceeding with potential ischemic evaluation. At this current time, the patient does not desire to rescind her DNR status. She is adamant about pursuing conservative medical management. She is aware of the risk of s udden cardiac with pursuing conservative medical management versus pursuing invasive measures. Currently, her chest pain is a 3/10. She was just given her morning amlodipine. We will reassess sy mptomatology and consider adding long-acting nitrate. We will continue cycling isoenzymes given Love nox should be continued until troponin peaks and is trending down. Palliative care consult has been placed. The patient is alert and mentation is intact. Continue aspirin and clopidogrel therapy for m edical management. 2. History of coronary artery disease, on aspirin 81 mg a day in combination with clopidogrel 75 mg a day, Lipitor 80 mg a day and Toprol 25 mg a day. Continue medical management. We will consider adding long-acting nitrates after reassessment of blood pressure on higher dose amlodipine. 3. History of chronic obstructive pulmonary disease, on continuous oxygen; defer to primary team. The patient has noted increased shortness of breath with cough. In the past, this would represent a c hronic obstructive pulmonary disease exacerbation. 4. DVT prophylaxis, on subcu Lovenox due to above non-ST segment elevation myocardial infarction. 5. Disposition, pending course. Await palliative care consultation. Continue conservative medical management. We will consider adding long-acting nitrate depending upon the patient's response to hig her dose amlodipine. Continue Lovenox until troponin is trending down. Dr. Anshul Mendosa has seen and examined the patient and agrees with the above assessment and plan. Thank you for this kind consultation. Any future questions or concerns, please do not hesitate to co ntact our practice. LIZZ MOSLEY, MEENA [id number]/CPS #: [id number]
--- NOTE | 2019-07-12 12:56 | CONSULT ---
Palliative / Hospice Consult Ordering Provider: Suzanne Diaz - PCP-Andrea Referal Reason: Goals of care/no bowel meds/no narcotics - Subjective Code Status: DNR Advance Directives Location: In Chart MOLST Part A Completed: Yes - on chart MOLST Part E Completed:: Yes - on chart - History or Present Illness History or Present Illness: 88yo female with COPD presents to ER with SOB. PMH-NSTEMI 03/18/19, HTN, COPD on 2.5 liters O2 at night, h/o lung cancer s/p lobectomy 1988, h/o colon ca, hyperlipidemia, chronic hypoxic respiratory failure, spinal stenosis and anxiety. 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 Studies CXR-hyperinflated lung gamble, Ekg-sinus tach, chest CTA-no PE, H/H 12.6/38, BUN/Cr 15/.63, egfr 89.6, alb 3.8 and troponin .26. Pt admitted with chest pain and elevated troponin. Pt has previous hospitalization 03/16-03/18 for NSTEMI and ER visit 07/04/19 for SOB. All history is from pt, family and medical record. Lab Values: Abnormal Lab Results 07/11/19 07/11/19 07/11/19 10:53 14:22 16:16 Magnesium 2.0 Troponin I 0.11 H* 0.18 H* Urine Color Yellow Urine Appearance Clear Urine pH 6.0 Ur Specific [place] 1.030 Urine Protein 2+(100 mg/dl) A Urine Ketones Trace A Urine Blood Negative Urine Nitrate Negative Urine Bilirubin Negative Urine Urobilinogen Negative Ur Leukocyte Esterase Negative Urine WBC (Auto) Trace(0-5/hpf) Urine RBC (Auto) Absent Urine Bacteria Absent Urine Glucose Negative 07/11/19 07/12/19 17:12 10:17 Magnesium Troponin I 0.26 H* 0.19 H* Urine Color Urine Appearance Urine pH Ur Specific [place] Urine Protein Urine Ketones Urine Blood Urine Nitrate Urine Bilirubin Urine Urobilinogen Ur Leukocyte Esterase Urine WBC (Auto) Urine RBC (Auto) Urine Bacteria Urine Glucose Laboratory Last Values WBC 8.9 10^3/uL (3.5-10.8) 07/11/19 08:39 RBC 4.05 10^6 /uL (3.70-4.87) 07/11/19 08:39 Hgb 12.6 g/dL (12.0-16.0) 07/11/19 08:39 Hct 38 % (35-47) 07/11/19 08:39 MCV 94 fL (80-97) 07/11/19 08:39 MCH 31 pg (27-31) 07/11/19 08:39 MCHC 33 g/dL (31-36) 07/11/19 08:39 RDW 15 % (10-15) 07/11/19 08:39 Plt Count 237 10^3/uL (150-450) 07/11/19 08:39 MPV 9.3 fL (7.4-10.4) 07/11/19 08:39 Neut % (Auto) 78.0 % 07/11/19 08:39 Lymph % (Auto) 11.1 % 07/11/19 08:39 [place] % (Auto) 9.2 % 07/11/19 08:39 Eos % (Auto) 1.2 % 07/11/19 08:39 Baso % (Auto) 0.5 % 07/11/19 08:39 Absolute Neuts (auto) 7.0 10^3/ul (1.5-7.7) 07/11/19 08:39 Absolute Lymphs (auto) 1.0 10^3/ul (1.0-4.8) 07/11/19 08:39 Absolute Monos (auto) 0.8 10^3/ul (0-0.8) 07/11/19 08:39 Absolute Eos (auto) 0.1 10^3/ul (0-0.6) 07/11/19 08:39 Absolute Basos (auto) 0.0 10^3/ul (0-0.2) 07/11/19 08:39 Absolute Nucleated RBC 0.0 10^3/ul 07/11/19 08:39 Nucleated RBC % 0.0 07/11/19 08:39 Sodium 136 mmol/L (135-145) 07/11/19 08:39 Potassium 3.5 mmol/L (3.5-5.0) 07/11/19 08:39 Chloride 97 mmol/L (101-111) L 07/11/19 08:39 Carbon Dioxide 32 mmol/L (22-32) 07/11/19 08:39 Anion Gap 7 mmol/L (2-11) 07/11/19 08:39 BUN 15 mg/dL (6-24) 07/11/19 08:39 Creatinine 0.63 mg/dL (0.51-0.95) 07/11/19 08:39 Est GFR ( Amer) 108.4 (>60) 07/11/19 08:39 Est GFR (Non-Af Amer) 89.6 (>60) 07/11/19 08:39 BUN/Creatinine Ratio 23.8 (8-20) H 07/11/19 08:39 Glucose 126 mg/dL (70-100) H 07/11/19 08:39 Calcium 9.3 mg/dL (8.6-10.3) 07/11/19 08:39 Magnesium 2.0 mg/dL (1.9-2.7) 07/11/19 10:53 Total Bilirubin 0.40 mg/dL (0.2-1.0) 07/11/19 08:39 AST 16 U/L (13-39) 07/11/19 08:39 ALT 12 U/L (7-52) 07/11/19 08:39 Alkaline Phosphatase 57 U/L (34-104) 07/11/19 08:39 Troponin I 0.19 ng/mL (<0.03) H* 07/12/19 10:17 Total Protein 7.2 g/dL (6.4-8.9) 07/11/19 08:39 Albumin 3.8 g/dL (3.2-5.2) 07/11/19 08:39 Globulin 3.4 g/dL (2-4) 07/11/19 08:39 Albumin/Globulin Ratio 1.1 (1-3) 07/11/19 08:39 Urine Color Yellow 07/11/19 16:16 Urine Appearance Clear 07/11/19 16:16 Urine pH 6.0 (5-9) 07/11/19 16:16 Ur Specific [place] 1.030 (1.010-1.030) 07/11/19 16:16 Urine Protein 2+(100 mg/dl) (Negative) A 07/11/19 16:16 Urine Ketones Trace (Negative) A 07/11/19 16:16 Urine Blood Negative (Negative) 07/11/19 16:16 Urine Nitrate Negative (Negative) 07/11/19 16:16 Urine Bilirubin Negative (Negative) 07/11/19 16:16 Urine Urobilinogen Negative (Negative) 07/11/19 16:16 Ur Leukocyte Esterase Negative (Negative) 07/11/19 16:16 Urine WBC (Auto) Trace(0-5/hpf) (Absent) 07/11/19 16:16 Urine RBC (Auto) Absent (Absent) 07/11/19 16:16 Urine Bacteria Absent (Absent) 07/11/19 16:16 Urine Glucose Negative (Negative) 07/11/19 16:16 - Objective Active Medications: Acetaminophen (Tylenol Tab*) 650 mg PO Q4H PRN PRN Reason: mild to moderate pain Albuterol (Ventolin 2.5 Mg/3 Ml Neb.Lety*) 1.25 mg INH TID PRN PRN Reason: SHORTNESS OF BREATH Albuterol (Ventolin Hfa Inhaler*) 2 puff INH Q4H PRN PRN Reason: SHORTNESS OF BREATH Albuterol/Ipratropium (Duoneb (Albuterol 2.5 Mg/Ipratropium 0.5 Mg)) 1 neb INH Q4H PRN PRN Reason: SOB/WHEEZING Last Admin: 07/11/19 18:24 Dose: 1 neb Alprazolam (Xanax Tab*) 0.5 mg PO BID [facility] Last Admin: 07/12/19 09:14 Dose: 0.5 mg Amlodipine Besylate (Norvasc Tab*) 10 mg PO DAILY [facility] Aspirin (Aspirin Ec Tab*) 81 mg PO DAILY [facility] Last Admin: 07/12/19 09:15 Dose: 81 mg Atorvastatin Calcium (Lipitor*) 80 mg PO DAILY [facility] Last Admin: 07/12/19 09:15 Dose: 80 mg Benzonatate (Tessalon Cap*) 100 mg PO TID [facility] Last Admin: 07/12/19 10:02 Dose: 100 mg Clopidogrel Bisulfate (Plavix Tab*) 75 mg PO DAILY [facility] Last Admin: 07/12/19 09:14 Dose: 75 mg Enoxaparin Sodium (Lovenox(*)) 55 mg SUBCUT Q12H [facility] Last Admin: 07/12/19 03:36 Dose: 55 mg Fluticasone Propionate (Flonase Nasal [place] 50mcg*) 1 spray BOTH NARES BID [facility] Last Admin: 07/12/19 09:16 Dose: 1 spray Magnesium Oxide (Magox 400 Tab*) 400 mg PO DAILY [facility] Last Admin: 07/12/19 09:14 Dose: 400 mg Melatonin (Melatonin) 3 mg PO BEDTIME PRN PRN Reason: INSOMNIA Metoprolol Succinate (Toprol Xl Tab*) 25 mg PO DAILY [facility] Last Admin: 07/12/19 09:16 Dose: 25 mg Mometasone Furoate/Formoterol Fumar (Dulera 200/5 Mdi*) 2 puff INH BID [facility]; Protocol Last Admin: 07/12/19 10:11 Dose: 2 puff Nitroglycerin (Nitroglycerin Tab 0.4 Mg*) 0.4 mg SL Q5M PRN PRN Reason: ANGINA Sodium Chloride (Sodium Chloride 0.65% Nasal [place]*) 2 spray BOTH NARES Q4H PRN PRN Reason: Allergy Symptoms Vital Signs: Vital Signs: Temp Pulse Resp BP Pulse Ox 97.9 F 79 20 118/65 100 07/12/19 08:00 07/12/19 08:00 07/12/19 09:14 07/12/19 08:00 07/12/19 08:00 Patient Weight: Weight 43.001 kg Intake and Output: Intake & Output 07/10/19 07/11/19 07/12/19 07/13/19 06:59 06:59 06:59 06:59 Intake Total 1100 Output Total 200 Balance 900 Weight 43.001 kg Intake: IV Fluids 1000 Oral 100 Output: Urine 200 ADLs: Meal Record Start: 07/11/19 14: 23 Freq: DAILY@0900,1400,1800 Status: Active Protocol: Created 07/11/19 14:23 System (Rec: 07/11/19 14:23 System [email or web address]) Document 07/11/19 18:00 [id number] (Rec: 07/11/19 20:36 [id number]) Intake and Output Start: 07/11/19 08: 21 Freq: Status: Active Protocol: Created 07/11/19 08:21 System (Rec: 07/11/19 08:21 System [id number]) Intake and Output Start: 07/11/19 14: 23 Freq: DAILY@0600,1400,2200 Status: Active Protocol: Created 07/11/19 14:23 System (Rec: 07/11/19 14:23 System [email or web address]) Document 07/11/19 20:37 [id number] (Rec: 07/11/19 20:37 [id number] [id number]) Document 07/11/19 22:00 [id number] (Rec: 07/11/19 22:50 [id number] TELE-C07) Document 07/12/19 06:00 [id number] (Rec: 07/12/19 06:49 [id number]) Head: Normal Ears/Nose/Mouth/Throat: NL Teeth, Lips, Gums Neck: NL Appearance and Movements; NL JVP, Trachea Midline Cardiovascular: NL Sounds; No Murmurs; No JVD Respiratory: Symmetrical Chest Expansion and Respiratory Effort Abdominal: NL Sounds; No Tenderness; No Distention Extremities: No Edema Neurological: Alert and Oriented x 3 - Assessment Assessment: 88yo female with chest pain - Plan Consult Plan (MU): Palliative Plan: Long discussion with pt and also contacted pt's daughter(Mercedes Doctor ) about goals of care. Pt has been using her O2 all the time instead of just at night and has decreased appetite with self reported weight loss. She wants to remain at home and has a tenant who is suppose to function as an aide. Recommended creating a formal schedule for services that need to be provided. Pt was receptive to visiting nurse services. After services end pt will decide if she wants hospice number information given to both pt and daughter. Daughter also wanted SW to contact her to make she pt's medicare is up to date and she would like 24 hr notice of discharge so she can be here, she lives in [place]. Pt and daughter are aware that at anytime pt can have another heart attack which may cause her . Pt absolutely wants to stay at home as long as possible and doesn't want any further interventions. Hospice eligibility is based on her CAD, NSTEMI (03/17/ & 07/18) and COPD. KPS 50%, PPS 50% - Time On Unit Date of Evaluation: 07/12/19 Hospice Consult Time in: 12:00 Hospice Consult Time Out: 13:00 Hospice Consult Time Total: 60 > 50% of Time Spend In Counseling or Coordinating Care: Yes
--- NOTE | 2019-07-12 19:00 | PN ---
Subjective Date of Service: 07/12/19 Interval History: Patient seen this morning, with acute worsening chest pain and shortness of breath. Along with that her labs positive troponin and EKG changes. patient seen by at bedside along with cardiology. She was informed of risk of acutely developing DC, but she declined any intervention and consented for palliative care consult. Past Medical History: Unchanged from Admission Objective Active Medications: Acetaminophen (Tylenol Tab*) 650 mg PO Q4H PRN PRN Reason: mild to moderate pain Albuterol (Ventolin 2.5 Mg/3 Ml Neb.Lety*) 1.25 mg INH TID PRN PRN Reason: SHORTNESS OF BREATH Albuterol (Ventolin Hfa Inhaler*) 2 puff INH Q4H PRN PRN Reason: SHORTNESS OF BREATH Albuterol/Ipratropium (Duoneb (Albuterol 2.5 Mg/Ipratropium 0.5 Mg)) 1 neb INH Q4H PRN PRN Reason: SOB/WHEEZING Last Admin: 07/11/19 18:24 Dose: 1 neb Alprazolam (Xanax Tab*) 0.5 mg PO TID [facility] Last Admin: 07/12/19 17:56 Dose: 0.5 mg Amlodipine Besylate (Norvasc Tab*) 10 mg PO DAILY [facility] Aspirin (Aspirin Ec Tab*) 81 mg PO DAILY [facility] Last Admin: 07/12/19 09:15 Dose: 81 mg Atorvastatin Calcium (Lipitor*) 80 mg PO DAILY [facility] Last Admin: 07/12/19 09:15 Dose: 80 mg Benzonatate (Tessalon Cap*) 100 mg PO TID [facility] Last Admin: 07/12/19 14:54 Dose: 100 mg Clopidogrel Bisulfate (Plavix Tab*) 75 mg PO DAILY [facility] Last Admin: 07/12/19 09:14 Dose: 75 mg Enoxaparin Sodium (Lovenox(*)) 45 mg SUBCUT Q12H [facility] Last Admin: 07/12/19 14:53 Dose: 45 mg Fluticasone Propionate (Flonase Nasal [place] 50mcg*) 1 spray BOTH NARES BID [facility] Last Admin: 07/12/19 09:16 Dose: 1 spray Magnesium Oxide (Magox 400 Tab*) 400 mg PO DAILY [facility] Last Admin: 07/12/19 09:14 Dose: 400 mg Melatonin (Melatonin) 3 mg PO BEDTIME PRN PRN Reason: INSOMNIA Metoprolol Succinate (Toprol Xl Tab*) 25 mg PO DAILY [facility] Last Admin: 07/12/19 09:16 Dose: 25 mg Mometasone Furoate/Formoterol Fumar (Dulera 200/5 Mdi*) 2 puff INH BID [facility]; Protocol Last Admin: 07/12/19 10:11 Dose: 2 puff Nitroglycerin (Nitroglycerin Tab 0.4 Mg*) 0.4 mg SL Q5M PRN PRN Reason: ANGINA Sodium Chloride (Sodium Chloride 0.65% Nasal [place]*) 2 spray BOTH NARES Q4H PRN PRN Reason: Allergy Symptoms Vital Signs - 8 hr 07/12/19 07/12/19 07/12/19 11:13 13:33 15:19 Temperature 97.8 F 97.3 F Pulse Rate 93 85 Respiratory 20 18 20 Rate Blood Pressure 111/51 122/54 (mmHg) O2 Sat by Pulse 100 97 Oximetry 07/12/19 17:56 Temperature Pulse Rate Respiratory 22 Rate Blood Pressure (mmHg) O2 Sat by Pulse Oximetry Oxygen Devices in Use Now: Nasal Cannula Appearance: awake, alert, mild distress with pain and shortness of breath. mildly dyspneic with short sentences Eyes: No Scleral Icterus, - - EOMI Ears/Nose/Mouth/Throat: Clear Oropharnyx, Mucous Membranes Moist Neck: Trachea Midline, - Respiratory: - - expiratory wheezing and bibasilar rales Cardiovascular: NL Sounds; No Murmurs; No JVD, No Edema Abdominal: NL Sounds; No Tenderness; No Distention Extremities: No Edema, - - clubbing Neurological: Alert and Oriented x 3 - Nutrition: Malnutrition Diagnosis/Plan Malnutrition Assessment by Registered Dietitian: Malnutrition Assessment Clinical Characteristics Acute,Moderate Malnutrition Assessment: severe wt loss: 9.6% x 2 weeks Criteria < 75% EEE x > 7 days mild temporal wasting per observation Malnutrition Assessment: suggest just LORE[place] diet in setting of wt loss, Interventions poor intake Ensure Enlive @ B daily: 350 kcals, 20 g pro per serving Malnutrition Assessment: Goals 1. Intake will improve to at least 50% of meals 2. Intake at meals + supplement will support stable wt/promote wt gain (if in line with GOC) Result Diagrams: 07/11/19 08:39 01/13/20 08:39 Assess/Plan/Problems-Billing Assessment: 88 y/o female admitted for shortness of breath and chest pain known history of COPD and previous NSTEMI found to have ACS declined any intervention on maximal medical therapy and referred for palliative care consult - Patient Problems (1) COPD (chronic obstructive pulmonary disease) Current Visit: No Status: Acute Code(s): J44.9 - CHRONIC OBSTRUCTIVE PULMONARY DISEASE, UNSPECIFIED SNOMED Code(s): 49331380 Comment: - Continue nebs, dulera and supplemental O2 - I am going to start steroid in the hope it will help her COPD and shortness of breath - Will add azithromycin 500 mg daily (2) GERD (gastroesophageal reflux disease) Current Visit: No Status: Acute Code(s): K21.9 - GASTRO-ESOPHAGEAL REFLUX DISEASE WITHOUT ESOPHAGITIS SNOMED Code(s): 095268385 Comment: - add pantoprazole 40 mg daily (3) NSTEMI (non-ST elevated myocardial infarction) Current Visit: No Status: Acute Code(s): I21.4 - NON-ST ELEVATION (NSTEMI) MYOCARDIAL INFARCTION SNOMED Code(s): 03306689 Comment: -Trops peaked at 0.[address] depression lasteral lead - patient declines stress or cath - Placed on therapeutic lovenox per cardiology - Continue asa, plavis with NTG prn - Increased amlodipine to 10 mg daily (4) HTN (hypertension) Current Visit: No Status: Chronic Code(s): I10 - ESSENTIAL (PRIMARY) HYPERTENSION SNOMED Code(s): 42815522 Comment: - Continue amlodipine increased to 10 mg daily and metoprolol (5) History of lung cancer Current Visit: No Status: Chronic Code(s): Z85.118 - PERSONAL HISTORY OF MALIGNANT NEOPLASM OF BRONCHUS AND LUNG SNOMED Code(s): 593902759 Comment: - S/P right upper lobectomy, on home O2, at baseline (6) DVT prophylaxis Current Visit: No Status: Acute Code(s): LGN8601 - SNOMED Code(s): 226272596 Comment: - on lovenox 45 mg SQ bid
[2019-07-12] MEDS: methylPREDNISolone SOD 40 MG* 1 ML VIAL IV SCH (20:34)
[2019-07-12] MEDS: Pantoprazole TAB * 40 MG TAB PO SCH (20:35)
[2019-07-12] MEDS: Azithromycin TAB* 250 MG PO SCH (20:36)
[2019-07-12] MEDS: Melatonin 3 MG TAB PO PRN (21:15)
[2019-07-13] MEDS: Enoxaparin(*) 60 MG/0.6 ML SYR SUBCUT SCH ×2 (02:21→13:58)
[2019-07-13] MEDS: Albuterol/Ipratropium NEB.SOL* Albuterol 2.5 MG/Ipratropium 0.5 MG 3 ML INH PRN (02:31)
[2019-07-13] MEDS: methylPREDNISolone SOD 40 MG* 1 ML VIAL IV SCH ×3 (03:47→20:34)
[2019-07-13 07:58] LABS: BUN/Creatinine Ratio 28.1 (8-20); Calcium 8.8 mg/dL (8.6-10.3); EGFR African American 121.7 (>60); EGFR Non-African American 100.6 (>60); Magnesium 2.1 mg/dL (1.9-2.7); Phosphorus 2.8 mg/dL (2.5-5.0); Potassium 4.6 mmol/L (3.5-5.0)
[2019-07-13] MEDS: Mometasone/Formoter 200/5 MDI INH SCH ×2 (08:22→20:09)
[2019-07-13] MEDS: Fluticasone NASAL SPRAY 50MCG* 16 gm SPRAY BTL BOTH NARES SCH ×2 (08:40→20:34)
[2019-07-13] MEDS: Azithromycin TAB* 250 MG PO SCH (08:41)
[2019-07-13] MEDS: Clopidogrel TAB* 75 MG PO SCH (08:41)
[2019-07-13] MEDS: Benzonatate CAP* 100 MG PO SCH ×3 (08:41→20:38)
[2019-07-13] MEDS: Atorvastatin* 80 MG TAB PO SCH (08:41)
[2019-07-13] MEDS: amLODIPine TAB* 5 MG PO SCH (08:41)
[2019-07-13] MEDS: Pantoprazole TAB * 40 MG TAB PO SCH (08:41)
[2019-07-13] MEDS: ALPRAZolam TAB* 0.5 MG PO SCH ×2 (08:41→13:58)
[2019-07-13] MEDS: Magnesium Oxide TAB* 400 MG PO SCH (08:41)
[2019-07-13] MEDS: Metoprolol Succinate XL TAB* 25 MG PO SCH (08:41)
[2019-07-13] MEDS: Aspirin EC TAB* 81 MG TAB.EC PO SCH (08:41)
[2019-07-13] MEDS ORDERED: Morphine ORAL CONCENTRATE* 5 MG/0.25 ML ORAL.SYRIN SL PRN (10:20)
[2019-07-13 10:40] LABS: ABS Basophils 0.1 10^3/ul (0-0.2); ABS Lymphocytes 0.3 10^3/ul (1.0-4.8); ABS Monocytes 0.1 10^3/ul (0-0.8); ABS Neutrophils 6.7 10^3/ul (1.5-7.7); Hematocrit 36 % (35-47); Lymphocyte % 4.5 %; Mean Corpuscular HGB Conc 33 g/dL (31-36); Mean Corpuscular Hemoglobin 31 pg (27-31); Mean Corpuscular Volume 94 fL (80-97); Mean Platelet Volume 9.6 fL (7.4-10.4); Platelet Count 262 10^3/uL (150-450); Red Blood Count 3.85 10^6 /uL (3.70-4.87); Red Cell Distribution Width 15 % (10-15); White Blood Count 7.2 10^3/uL (3.5-10.8)
--- NOTE | 2019-07-13 14:16 | PN ---
Subjective Date of Service: 07/13/19 Interval History: Patient seen today, she appears clinically better, she did have 2 panics attack today required nursing redirection and coaching through her attack, she did benefit from roxanol s/l. Otherwise her SOB and CP has been stable. She denies any chest tightness today. Poor apetite but encourage to try her best. Past Medical History: Unchanged from Admission Objective Active Medications: Acetaminophen (Tylenol Tab*) 650 mg PO Q4H PRN PRN Reason: mild to moderate pain Albuterol (Ventolin 2.5 Mg/3 Ml Neb.Lety*) 1.25 mg INH TID PRN PRN Reason: SHORTNESS OF BREATH Albuterol (Ventolin Hfa Inhaler*) 2 puff INH Q4H PRN PRN Reason: SHORTNESS OF BREATH Albuterol/Ipratropium (Duoneb (Albuterol 2.5 Mg/Ipratropium 0.5 Mg)) 1 neb INH Q4H PRN PRN Reason: SOB/WHEEZING Last Admin: 07/13/19 02:31 Dose: 1 neb Alprazolam (Xanax Tab*) 0.5 mg PO TID [facility] Last Admin: 07/13/19 13:58 Dose: 0.5 mg Amlodipine Besylate (Norvasc Tab*) 10 mg PO DAILY [facility] Last Admin: 07/13/19 08:41 Dose: 10 mg Aspirin (Aspirin Ec Tab*) 81 mg PO DAILY [facility] Last Admin: 07/13/19 08:41 Dose: 81 mg Atorvastatin Calcium (Lipitor*) 80 mg PO DAILY [facility] Last Admin: 07/13/19 08:41 Dose: 80 mg Azithromycin (Zithromax Tab*) 500 mg PO DAILY [facility] Last Admin: 07/13/19 08:41 Dose: 500 mg Benzonatate (Tessalon Cap*) 100 mg PO TID [facility] Last Admin: 07/13/19 13:58 Dose: 100 mg Clopidogrel Bisulfate (Plavix Tab*) 75 mg PO DAILY [facility] Last Admin: 07/13/19 08:41 Dose: 75 mg Dexamethasone (Decadron Tab*) 2 mg PO TID [facility] Enoxaparin Sodium (Lovenox(*)) 45 mg SUBCUT Q12H [facility] Last Admin: 07/13/19 13:58 Dose: 45 mg Fluticasone Propionate (Flonase Nasal [place] 50mcg*) 1 spray BOTH NARES BID [facility] Last Admin: 07/13/19 08:40 Dose: 1 spray Magnesium Oxide (Magox 400 Tab*) 400 mg PO DAILY [facility] Last Admin: 07/13/19 08:41 Dose: 400 mg Melatonin (Melatonin) 3 mg PO BEDTIME PRN PRN Reason: INSOMNIA Last Admin: 07/12/19 21:15 Dose: 3 mg Methylprednisolone Sodium Succinate (Solu-Medrol 40 Mg) 40 mg IV Q8H [facility] Stop: 07/13/19 23:59 Last Admin: 07/13/19 12:01 Dose: 40 mg Metoprolol Succinate (Toprol Xl Tab*) 25 mg PO DAILY [facility] Last Admin: 07/13/19 08:41 Dose: 25 mg Mometasone Furoate/Formoterol Fumar (Dulera 200/5 Mdi*) 2 puff INH BID [facility]; Protocol Last Admin: 07/13/19 08:22 Dose: 2 puff Morphine Sulfate (Morphine Oral Concentrate*) 5 mg SL Q4H PRN PRN Reason: Respiratory distress Last Admin: 07/13/19 12:00 Dose: 5 mg Nitroglycerin (Nitroglycerin Tab 0.4 Mg*) 0.4 mg SL Q5M PRN PRN Reason: ANGINA Pantoprazole Sodium (Protonix Tab*) 40 mg PO DAILY [facility] Last Admin: 07/13/19 08:41 Dose: 40 mg Sodium Chloride (Sodium Chloride 0.65% Nasal [place]*) 2 spray BOTH NARES Q4H PRN PRN Reason: Allergy Symptoms Last Admin: 07/13/19 13:58 Dose: 2 spray Vital Signs - 8 hr 07/13/19 07/13/19 07/13/19 08:00 08:41 10:44 Temperature 98.3 F Pulse Rate 95 Respiratory 22 22 20 Rate Blood Pressure 131/69 (mmHg) O2 Sat by Pulse 100 Oximetry 07/13/19 07/13/19 07/13/19 11:42 12:00 13:58 Temperature 97.5 F Pulse Rate 95 Respiratory 22 22 20 Rate Blood Pressure 104/48 (mmHg) O2 Sat by Pulse 100 Oximetry Oxygen Devices in Use Now: Nasal Cannula Appearance: awake, alert, anxious. pleasant Eyes: No Scleral Icterus, - - EOMI Ears/Nose/Mouth/Throat: NL Teeth, Lips, Gums, Clear Oropharnyx, Mucous Membranes Moist Neck: NL Appearance and Movements; NL JVP, Trachea Midline Respiratory: Symmetrical Chest Expansion and Respiratory Effort, - - no wheezing , poor air flow Cardiovascular: NL Sounds; No Murmurs; No JVD, No Edema, - - + clubbing Abdominal: NL Sounds; No Tenderness; No Distention Extremities: No Edema, - - Clubbing Neurological: Alert and Oriented x 3 - Nutrition: Malnutrition Diagnosis/Plan Malnutrition Assessment by Registered Dietitian: Malnutrition Assessment Clinical Characteristics Acute,Moderate Malnutrition Assessment: severe wt loss: 9.6% x 2 weeks Criteria < 75% EEE x > 7 days mild temporal wasting per observation Malnutrition Assessment: suggest just [place] diet in setting of wt loss, Interventions poor intake Ensure Enlive @ B daily: 350 kcals, 20 g pro per serving Malnutrition Assessment: Goals 1. Intake will improve to at least 50% of meals 2. Intake at meals + supplement will support stable wt/promote wt gain (if in line with GOC) Result Diagrams: 07/13/19 10:21 07/13/19 07:09 Microbiology and Other Data: Microbiology 07/11/19 16:16 Urine Culture - Final Urine No Growth (<1,000 CFU/mL) Assess/Plan/Problems-Billing Assessment: 88 y/o female admitted for shortness of breath and chest pain known history of COPD and previous NSTEMI found to have ACS declined any intervention on maximal medical therapy and referred for palliative care consult - Patient Problems (1) COPD (chronic obstructive pulmonary disease) Current Visit: No Status: Acute Code(s): J44.9 - CHRONIC OBSTRUCTIVE PULMONARY DISEASE, UNSPECIFIED SNOMED Code(s): 37630812 Comment: - Continue nebs, dulera and supplemental O2 - Continue her on steroid and will change to decadron tomorrow - Will add azithromycin 500 mg daily # 2 - If remains stable will plan to discharge home on Decadron po, zithromax po. also will send her on roxanol prn for respiratory distress. - Will change her xanax to long acting klonipin as it will serve copd better and there is less variation between peak and low with klonipin when compared to xanax (2) GERD (gastroesophageal reflux disease) Current Visit: No Status: Acute Code(s): K21.9 - GASTRO-ESOPHAGEAL REFLUX DISEASE WITHOUT ESOPHAGITIS SNOMED Code(s): 253138957 Comment: - continue pantoprazole 40 mg daily (3) NSTEMI (non-ST elevated myocardial infarction) Current Visit: No Status: Acute Code(s): I21.4 - NON-ST ELEVATION (NSTEMI) MYOCARDIAL INFARCTION SNOMED Code(s): 51715122 Comment: - Trops peaked at 0.[address] depression lasteral lead - patient declines stress or cath - Placed on therapeutic lovenox per cardiology. will discontinue today. - Continue asa, plavix with NTG prn - Increased amlodipine to 10 mg daily (4) HTN (hypertension) Current Visit: No Status: Chronic Code(s): I10 - ESSENTIAL (PRIMARY) HYPERTENSION SNOMED Code(s): 73332176 Comment: - Continue amlodipine increased to 10 mg daily and metoprolol 25 mg daily (5) History of lung cancer Current Visit: No Status: Chronic Code(s): Z85.118 - PERSONAL HISTORY OF MALIGNANT NEOPLASM OF BRONCHUS AND LUNG SNOMED Code(s): 406787106 Comment: - S/P right upper lobectomy, on home O2, at baseline (6) DVT prophylaxis Current Visit: No Status: Acute Code(s): WBL0899 - SNOMED Code(s): 434187572 Comment: - on lovenox 45 mg SQ bid
[2019-07-13] MEDS ORDERED: ALPRAZolam TAB* 0.5 MG PO PRN (14:17)
[2019-07-13] MEDS: clonazePAM TAB(*) 1 MG PO SCH (20:35)
[2019-07-13] MEDS: Melatonin 3 MG TAB PO PRN (20:52)
[2019-07-14] MEDS: clonazePAM TAB(*) 1 MG PO SCH (08:06)
[2019-07-14] MEDS: amLODIPine TAB* 5 MG PO SCH (08:06)
[2019-07-14] MEDS: Aspirin EC TAB* 81 MG TAB.EC PO SCH (08:06)
[2019-07-14] MEDS: Clopidogrel TAB* 75 MG PO SCH (08:06)
[2019-07-14] MEDS: Metoprolol Succinate XL TAB* 25 MG PO SCH (08:06)
[2019-07-14] MEDS: Magnesium Oxide TAB* 400 MG PO SCH (08:06)
[2019-07-14] MEDS: Benzonatate CAP* 100 MG PO SCH (08:06)
[2019-07-14] MEDS: Azithromycin TAB* 250 MG PO SCH (08:07)
[2019-07-14] MEDS: Pantoprazole TAB * 40 MG TAB PO SCH (08:07)
[2019-07-14] MEDS: Atorvastatin* 80 MG TAB PO SCH (08:07)
[2019-07-14] MEDS: Fluticasone NASAL SPRAY 50MCG* 16 gm SPRAY BTL BOTH NARES SCH (08:13)
[2019-07-14] MEDS: Mometasone/Formoter 200/5 MDI INH SCH (08:25)
[2019-07-14] MEDS ORDERED: Enoxaparin(*) 60 MG/0.6 ML SYR SUBCUT SCH (09:00)
[2019-07-14] MEDS ORDERED: Dexamethasone TAB* 1 MG PO SCH (09:00)
[2019-07-14 11:55] VITALS: BP 101/53
--- NOTE | 2019-07-15 00:47 | DS ---
CC: Dr. Mendez * DISCHARGE SUMMARY: DATE OF ADMISSION: 07/11/19 DATE OF DISCHARGE: 07/14/19 FINAL DISCHARGE DIAGNOSES: 1. Xaf-IU-xneujkrxo myocardial infarction. 2. Acute on chronic chronic obstructive pulmonary disease exacerbation. 3. Gastroesophageal reflux disease. 4. Hypertension. 5. History of lung cancer. 6. Anxiety and panic disorder. HOSPITAL COURSE: The patient presented to [facility] on 07/11/19 for shortness of breath with known history of severe COPD, chronic home O2, carotid disease and previous non-STEMI, lung cancer, presented with shortness of breath, getting worse over the course of past months, not relieved at home with DuoNeb and on night of admission, she was quite dyspneic, hyperventilating associated with intermittent chest pain. On previous admission for similar reason, the patient did decline any cardiac intervention. On this time, her troponin was positive with initial presentation troponin of 0.5 and it did peak up to 0.26. Cardiology were consulted. She was seen and evaluated by Cardiology on 07/12/19, and at that time, she continued to make her wishes known against any further cardiac workup including even stress testing or cardiac cath. Therefore, after long discussion between myself, the patient and Cardiology, she opted to continue maximal medical treatment. She was maintained on Lovenox for the past 72 hours with maximizing antianginal medication including amlodipine increased to 10 mg and I also initiated treatment for COPD exacerbation with steroid and azithromycin, and discussed with her passive palliative care for which she agreed and she did meet with Dr. Coyne, and further discussion regarding her diagnosis, they discussed all options and they agreed to go home and patient would like to stay home as long as possible. Information and numbers for hospice was provided, at which time, the patient will decide to initiate the hospice from an outpatient. She did verbalize that she does not want any intervention and does not wish to return to the hospital and she would like to seek the hospice care once ready as an outpatient. With that said, her medical treatment has been optimized at this time from cardiac point of view. I initiated Roxanol and Klonopin to help cope with respiratory distress and anxiety, and she was monitored for additional 24 hours from today, which seems she responded well to the Roxanol and Klonopin, and at this time, I deemed her stable to discharge, although she is at very high risk for sudden cardiac giving her known non-STEMI and severe lung disease, which can trigger hyperventilation and panic attack. Unless she has the 24-hour care and hospice care in place, I do foresee that she might be panic to the point where she re-alert the EMS and being transported back to the ER. She was coached with what to do if she was to face respiratory distress, I educated her myself to utilize the nebulizer treatment followed by the Roxanol and sustainability coach herself through and utilize the Klonopin as well. However, unless she is under hospice care and she develops these symptoms, she was advised to seek immediate medical attention because as of now she remains under full treatment with the exception of DNR/DNI. She fully understood and she demonstrated knowledge on what medication to use and also the nurse did educate how to utilize Roxanol droplets. PHYSICAL EXAM: Her temperature is 98, pulse 86, respiratory rate 16, she is satting 100% on 2 L, blood pressure ranging between 123/59 and 101/53. General : She is sitting in bed, awake, alert, conversing, no respiratory distress. She is slightly anxious of knowing what to do if she was to face a panic attack at home. Otherwise, comfortable and cooperative during the exam. Lungs: Poor airflow, distant breath sounds. I do not appreciate any expiratory wheeze. Cardiovascular: S1, S2. Regular rate and rhythm. Abdomen: Soft, nontender, nondistended. Extremities: Positive clubbing, no edema. DIAGNOSTIC STUDIES/LAB DATA: She had CBC unremarkable. Chemistry was pronounced significantly for troponin 0.05, and it peaked to 0.26. Imaging studies: She had CTA of the chest that shows no evidence of pulmonary embolism, severe emphysematous changes, otherwise. EKGs, multiple; significant for some ST depression in the lateral leads that was on 07/12/19 and on 07/11/[address] depression in V4, V5. DISCHARGE MEDICATIONS: She was discharged on the following medications: New medications first: 1. Tylenol as needed. 2. Amlodipine increased to 10 mg daily. 3. Added aspirin 81 mg daily. 4. Azithromycin 500 mg daily for 3 more days. 5. Klonopin 1 mg twice a day. 6. Dexamethasone 2 mg t.i.d. for 2 days, 1 mg t.i.d. for 2 days, 1 mg b.i.d. for 2 days, 1 mg daily x2 days and stop. 7. Melatonin 3 mg at bedtime. 8. Roxanol morphine oral 5 mg sublingual every 4 hours as needed not to exceed 1.5 mL per day, concentration is 5 mg/0.25 cc, dispensed amount was 15 cc for 10 days. 9. Pantoprazole 40 mg daily. 10. Tessalon Per[place] 100 mg t.i.d. 11. Symbicort 2 puffs twice a day. 12. Ventolin p.r.n. 13. Metoprolol 25 mg daily. 14. Plavix 75 mg daily. 15. Nitroglycerin p.r.n. 16. Flonase twice a day. 17. Voltaren gel. 18. Lipitor 80 mg daily. 19. Xanax was changed from around the clock to as needed 0.5 mg t.i.d. as needed only in between Klonopin for breakthrough anxiety. DISCHARGE INSTRUCTIONS: Followup with Dr. Elmo Mendez in 1 to 2 weeks, visiting nurse service referral. DISCHARGE DISPOSITION: Home. DISCHARGE CONDITION: Stable. [id number] #: [id number] [facility] CENTERAileen
== END 2019-07-14 15:20 | disposition home or self-care (01) | DRG 281 ==
LOC: ED 08:15 → MEDTELE 13:20 → OBSVTOIN 07-12 11:00
PROVIDERS: ADMIT Hospitalist; ATTEND Internal Medicine
DX: I21.4 Non-ST elevation (NSTEMI) myocardial infarction (principal); J44.1 Chronic obstructive pulmonary disease with (acute) exacerbation; J96.11 Chronic respiratory failure with hypoxia; I11.0 Hypertensive heart disease with heart failure; I50.9 Heart failure, unspecified; M19.90 Unspecified osteoarthritis, unspecified site; M81.0 Age-related osteoporosis without current pathological fracture; E78.5 Hyperlipidemia, unspecified; Z66 Do not resuscitate; I25.10 Atherosclerotic heart disease of native coronary artery without angina pectoris; K21.9 Gastro-esophageal reflux disease without esophagitis; F41.0 Panic disorder [episodic paroxysmal anxiety]; I08.1 Rheumatic disorders of both mitral and tricuspid valves; M48.00 Spinal stenosis, site unspecified; Z85.828 Personal history of other malignant neoplasm of skin; Z85.038 Personal history of other malignant neoplasm of large intestine; Z88.5 Allergy status to narcotic agent; Z88.2 Allergy status to sulfonamides; Z88.8 Allergy status to other drugs, medicaments and biological substances; Z85.820 Personal history of malignant melanoma of skin; Z99.81 Dependence on supplemental oxygen; I25.2 Old myocardial infarction; Z85.118 Personal history of other malignant neoplasm of bronchus and lung; Z87.891 Personal history of nicotine dependence; Z90.2 Acquired absence of lung [part of]; Z79.51 Long term (current) use of inhaled steroids; Z79.02 Long term (current) use of antithrombotics/antiplatelets; Z79.899 Other long term (current) drug therapy
CPT/HCPCS: 36415; 71046; 71275; 80048; 80053; 81003; 81015; 83735; 84100; 84484; 85025; 87086; 93005; 94640; 96372; 99285; A9270-GY; G0378; J1650; J2920; Q9967

== ENCOUNTER 2021-03-10 18:57 | Inpatient (IN) ==
[2021-03-10] MEDS ORDERED: Magnesium Sulfate 2 gm BAG 2 GM/50 ML BAG IV ONE (19:47)
[2021-03-10] MEDS ORDERED: Dexamethasone IV 4 MG/ML VIAL 1 ml VIAL IV SLOW PU ONE (19:47)
[2021-03-10] MEDS ORDERED: Terbutaline INJ 1 MG/ML 1 ml VIAL SUBCUT ONE (19:50)
[2021-03-10] MEDS ORDERED: Lactated Ringers 1000 ml BAG 1,000 ML IV ONE ×2 (19:50→21:53)
[2021-03-10 19:58] LABS: PCO2 Arterial 54 mmHg (35-45); PO2 Arterial 103 mmHg (80-100)
[2021-03-10] MEDS ORDERED: Albuterol 2.5mg/3 ml (0.083%) NEB.SOLN INH SCH (20:00)
[2021-03-10] MEDS ORDERED: Albuterol/Ipratropium NEB.SOL (2.5/0.5 MG) 3 ML NEB.SOLN ONE (20:03)
[2021-03-10 20:26] LABS: ABS Basophils 0.1 10^3/ul (0-0.2); ABS Lymphocytes 1.2 10^3/ul (1.0-4.8); ABS Monocytes 1.1 10^3/ul (0-0.8); ABS Neutrophils 7.3 10^3/ul (1.5-7.7); Eosinophil % 0.2 %; Hematocrit 35 % (35-47); Hemoglobin 11.4 g/dL (12.0-16.0); Lymphocyte % 12.4 %; Mean Corpuscular HGB Conc 32 g/dL (31-36); Mean Corpuscular Hemoglobin 27 pg (27-31); Mean Corpuscular Volume 83 fL (80-97); Platelet Count 410 10^3/uL (150-450); Red Blood Count 4.25 10^6 /uL (3.70-4.87); Red Cell Distribution Width 20 % (10-15); White Blood Count 9.7 10^3/uL (3.5-10.8)
[2021-03-10 20:43] LABS: Albumin 3.9 g/dL (3.2-5.2); Albumin/Globulin Ratio 1.1 (1-3); EGFR African American 109.9 (>60); EGFR Non-African American 90.8 (>60); Globulin 3.7 g/dL (2-4); Potassium 3.9 mmol/L (3.5-5.0); Total Bilirubin 0.6 mg/dL (0.2-1.0); Total Protein 7.6 g/dL (6.4-8.9)
[2021-03-10 20:45] LABS: Troponin I 0.02 ng/mL (<0.03)
[2021-03-10] MEDS ORDERED: Iohexol 350 (CONTRAST) 500 ML MDV IV ONE (20:46)
[2021-03-10] MEDS ORDERED: Diazepam INJ CARPUJECT 5 MG/ML IV ONE (21:52)
[2021-03-10 22:32] LABS: Rapid COVID-19 Molecular Detected (Undetected)
[2021-03-11] MEDS ORDERED: Azithromycin 500 mg/250 ml NS 500 MG/250 ML BAG IVPB ONE (00:05)
[2021-03-11] MEDS ORDERED: Remdesivir 100 mg Vial 200 MG in NS 0.9% 250 ml 210 ML IV ONE (00:13)
[2021-03-11] MEDS ORDERED: cefTRIAXone 1 GM/50 ML PREMIX.BAG IV ONE (00:20)
[2021-03-11] MEDS ORDERED: Albuterol 2.5mg/3 ml (0.083%) NEB.SOLN INH SCH (01:00)
[2021-03-11] MEDS: CMCS: Baricitinib 2 MG TAB (NF) PO SCH ×2 (02:28→21:15)
[2021-03-11] MEDS: methylPREDNISolone SOD 40 mg/ml 1 ml VIAL IV SCH ×3 (02:32→18:19)
[2021-03-11] MEDS: Albuterol 2.5mg/3 ml (0.083%) NEB.SOLN INH SCH ×2 (02:34→07:04)
[2021-03-11 02:43] LABS: Urine Appearance Turbid; Urine Bilirubin Negative (Negative); Urine Blood 1+ (Negative); Urine Color Straw; Urine Glucose Negative (Negative); Urine Ketones 1+ (Negative); Urine Nitrite Negative (Negative); Urine Protein Negative (Negative); Urine Specific Gravity 1.017 (1.002-1.030); Urine Urobilinogen Negative (Negative)
[2021-03-11 02:47] LABS: Urine Amorphous Crystals Present (Absent); Urine Bacteria Absent (Absent); Urine Red Blood Cell Absent (Absent); Urine Squamous Epithelial Cell Present (Absent); Urine White Blood Cell Absent (Absent)
[2021-03-11 02:49] LABS: INR 1.09 (0.86-1.15)
[2021-03-11 02:51] LABS: Albumin 3.7 g/dL (3.2-5.2); Calcium 8.6 mg/dL (8.6-10.3); Potassium 3.8 mmol/L (3.5-5.0); Total Bilirubin 0.6 mg/dL (0.2-1.0)
[2021-03-11 02:57] LABS: Albumin/Globulin Ratio 1.1 (1-3); EGFR African American 116.4 (>60); EGFR Non-African American 96.2 (>60); Globulin 3.5 g/dL (2-4); Total Protein 7.2 g/dL (6.4-8.9)
[2021-03-11] MEDS ORDERED: Potassium Chlor 20 meq TAB.ER PO ONE (03:12)
[2021-03-11 05:17] LABS: PCO2 Arterial 48 mmHg (35-45); PO2 Arterial 93 mmHg (80-100)
[2021-03-11 05:44] LABS: ABS Lymphocytes 0.5 10^3/ul (1.0-4.8); ABS Monocytes 0.1 10^3/ul (0-0.8); ABS Neutrophils 5.5 10^3/ul (1.5-7.7); Hematocrit 32 % (35-47); Hemoglobin 10.4 g/dL (12.0-16.0); Mean Corpuscular HGB Conc 32 g/dL (31-36); Mean Corpuscular Hemoglobin 27 pg (27-31); Mean Corpuscular Volume 83 fL (80-97); Mean Platelet Volume 8.9 fL (7.4-10.4); Platelet Count 345 10^3/uL (150-450); Red Blood Count 3.87 10^6 /uL (3.70-4.87); Red Cell Distribution Width 20 % (10-15); White Blood Count 6.1 10^3/uL (3.5-10.8)
[2021-03-11 05:54] LABS: Calcium 8.2 mg/dL (8.6-10.3); EGFR African American 137.7 (>60); EGFR Non-African American 113.8 (>60)
[2021-03-11] MEDS: Mometasone/Formoter 200/5 MDI INH SCH ×2 (08:07→20:42)
[2021-03-11] MEDS: Albuterol HFA INHALER 8 gm MDI INH SCH ×2 (08:08→13:09)
[2021-03-11] MEDS: Heparin 5000 UNITS/ML 1 mL VIAL SUBCUT SCH ×2 (08:50→21:16)
[2021-03-11] MEDS: Aspirin EC 81 mg TAB.EC (enteric coated) PO SCH (08:52)
[2021-03-11] MEDS: Levalbuterol HFA INHALER MDI INH SCH ×3 (11:25→20:41)
[2021-03-11] MEDS ORDERED: Morphine 2 MG/ML SYRINGE IV ONE (13:07)
[2021-03-11] MEDS ORDERED: Morphine 2 MG/ML SYRINGE ONE (13:11)
[2021-03-12] MEDS: methylPREDNISolone SOD 40 mg/ml 1 ml VIAL IV SCH (02:41)
[2021-03-12] MEDS: Levalbuterol HFA INHALER MDI INH SCH ×5 (02:41→21:02)
[2021-03-12] MEDS: cefTRIAXone 1 gm/50 mL NS BAG 1 GM/50 ML BAG IVPB SCH (02:41)
[2021-03-12 05:24] LABS: Hematocrit 30 % (35-47); Hemoglobin 9.5 g/dL (12.0-16.0); Mean Corpuscular HGB Conc 32 g/dL (31-36); Mean Corpuscular Hemoglobin 26 pg (27-31); Mean Corpuscular Volume 83 fL (80-97); Mean Platelet Volume 8.9 fL (7.4-10.4); Platelet Count 308 10^3/uL (150-450); Red Blood Count 3.62 10^6 /uL (3.70-4.87); Red Cell Distribution Width 19 % (10-15); White Blood Count 12.2 10^3/uL (3.5-10.8)
[2021-03-12 05:44] LABS: EGFR African American 131.7 (>60); EGFR Non-African American 108.9 (>60); Magnesium 2.1 mg/dL (1.9-2.7); Potassium 4.5 mmol/L (3.5-5.0)
[2021-03-12] MEDS: Mometasone/Formoter 200/5 MDI INH SCH ×2 (08:00→21:03)
[2021-03-12] MEDS: Aspirin EC 81 mg TAB.EC (enteric coated) PO SCH (09:38)
[2021-03-12] MEDS: Heparin 5000 UNITS/ML 1 mL VIAL SUBCUT SCH ×2 (09:39→22:07)
[2021-03-12] MEDS: Dexamethasone IV 4 MG/ML VIAL 1 ml VIAL IV SLOW PU SCH ×2 (09:39→17:07)
[2021-03-12] MEDS ORDERED: Polyethylene Glycol 3350 17 GM PACKET PO PRN (21:29)
[2021-03-12] MEDS: Senna TAB 8.6 mg TAB PO PRN (22:07)
[2021-03-12] MEDS: CMCS: Baricitinib 2 MG TAB (NF) PO SCH (22:07)
[2021-03-12] MEDS: Remdesivir 100 mg Vial 100 MG in NS 0.9% 250 ml 230 ML IV SCH (22:15)
[2021-03-13] MEDS: Levalbuterol HFA INHALER MDI INH SCH ×5 (02:24→19:41)
[2021-03-13] MEDS: cefTRIAXone 1 gm/50 mL NS BAG 1 GM/50 ML BAG IVPB SCH (04:05)
[2021-03-13 07:45] LABS: ABS Lymphocytes 0.5 10^3/ul (1.0-4.8); ABS Monocytes 0.7 10^3/ul (0-0.8); ABS Neutrophils 14.2 10^3/ul (1.5-7.7); Hematocrit 31 % (35-47); Hemoglobin 10.1 g/dL (12.0-16.0); Lymphocyte % 3.3 %; Mean Corpuscular HGB Conc 32 g/dL (31-36); Mean Corpuscular Hemoglobin 27 pg (27-31); Mean Corpuscular Volume 83 fL (80-97); Mean Platelet Volume 9.1 fL (7.4-10.4); Platelet Count 306 10^3/uL (150-450); Red Blood Count 3.78 10^6 /uL (3.70-4.87); Red Cell Distribution Width 20 % (10-15); White Blood Count 15.4 10^3/uL (3.5-10.8)
[2021-03-13 07:55] LABS: Albumin 3.2 g/dL (3.2-5.2); Calcium 8.3 mg/dL (8.6-10.3); EGFR African American 147.7 (>60); EGFR Non-African American 122.1 (>60); Globulin 3.1 g/dL (2-4); Potassium 3.9 mmol/L (3.5-5.0); Total Bilirubin 0.3 mg/dL (0.2-1.0); Total Protein 6.3 g/dL (6.4-8.9)
[2021-03-13] MEDS: Mometasone/Formoter 200/5 MDI INH SCH ×2 (08:43→19:41)
[2021-03-13] MEDS: Heparin 5000 UNITS/ML 1 mL VIAL SUBCUT SCH ×2 (09:15→22:45)
[2021-03-13] MEDS: Aspirin EC 81 mg TAB.EC (enteric coated) PO SCH (09:15)
[2021-03-13] MEDS: SPIRIVA Respimat (tiotropium) 2.5 mcg/inh Inhaler INH SCH (09:57)
[2021-03-13] MEDS: Remdesivir 100 mg Vial 100 MG in NS 0.9% 250 ml 230 ML IV SCH (22:41)
[2021-03-13] MEDS: CMCS: Baricitinib 2 MG TAB (NF) PO SCH (22:44)
[2021-03-13] MEDS: Senna TAB 8.6 mg TAB PO PRN (22:45)
[2021-03-14] MEDS: cefTRIAXone 1 gm/50 mL NS BAG 1 GM/50 ML BAG IVPB SCH (00:34)
[2021-03-14] MEDS: Levalbuterol HFA INHALER MDI INH SCH ×3 (02:45→14:21)
[2021-03-14] MEDS: Aspirin EC 81 mg TAB.EC (enteric coated) PO SCH (09:39)
[2021-03-14] MEDS: Mometasone/Formoter 200/5 MDI INH SCH ×2 (09:51→21:12)
[2021-03-14] MEDS: SPIRIVA Respimat (tiotropium) 2.5 mcg/inh Inhaler INH SCH (09:58)
[2021-03-14] MEDS: Heparin 5000 UNITS/ML 1 mL VIAL SUBCUT SCH ×2 (10:03→22:48)
[2021-03-14] MEDS: Levalbuterol HFA INHALER MDI INH PRN (21:17)
[2021-03-14] MEDS: Remdesivir 100 mg Vial 100 MG in NS 0.9% 250 ml 230 ML IV SCH (22:44)
[2021-03-14] MEDS: Senna TAB 8.6 mg TAB PO PRN (22:49)
[2021-03-14] MEDS: CMCS: Baricitinib 2 MG TAB (NF) PO SCH (22:49)
[2021-03-15] MEDS: Mometasone/Formoter 200/5 MDI INH SCH ×2 (08:30→20:14)
[2021-03-15] MEDS: SPIRIVA Respimat (tiotropium) 2.5 mcg/inh Inhaler INH SCH (08:31)
[2021-03-15] MEDS: Aspirin EC 81 mg TAB.EC (enteric coated) PO SCH (08:35)
[2021-03-15] MEDS: Heparin 5000 UNITS/ML 1 mL VIAL SUBCUT SCH ×2 (08:36→22:22)
[2021-03-15] MEDS: Levalbuterol HFA INHALER MDI INH PRN ×2 (14:56→20:13)
[2021-03-15] MEDS: Senna TAB 8.6 mg TAB PO PRN (22:22)
[2021-03-15] MEDS: CMCS: Baricitinib 2 MG TAB (NF) PO SCH (22:22)
[2021-03-15] MEDS: Remdesivir 100 mg Vial 100 MG in NS 0.9% 250 ml 230 ML IV SCH (22:23)
[2021-03-16] MEDS: Aspirin EC 81 mg TAB.EC (enteric coated) PO SCH (08:27)
[2021-03-16] MEDS: Heparin 5000 UNITS/ML 1 mL VIAL SUBCUT SCH (08:28)
[2021-03-16] MEDS: Mometasone/Formoter 200/5 MDI INH SCH (08:49)
[2021-03-16] MEDS: SPIRIVA Respimat (tiotropium) 2.5 mcg/inh Inhaler INH SCH (08:50)
[2021-03-16 11:29] VITALS: BP 130/47
== END 2021-03-16 11:50 | disposition home or self-care (01) | DRG 871 ==
LOC: ED 18:57 → SUATTDRO 03-11 00:02 → ICU 03-11 00:02 → MED 03-11 15:58
PROVIDERS: ADMIT Internal Medicine; ATTEND Internal Medicine